=== PATIENT | female | born 1950 | race Caucasian/White ===

== ENCOUNTER 2019-10-03 00:11 | Day surgery (SDC) | payer MEDICARE, BC ==
[~2019-10-03 00:11] MED LIST: ASPI325EC; ASPI81EC; CHOL10002 PO; DIVA250EC PO; ELIQUIS5 MG PO; ENOX120I SC; FENOFIBRATE130 MG PO; LOSA25 PO; LOVENOX150 MG/1 M SC; METO25ER PO; Multiple Vitam1 EAC1; Neurontin 100100 MG PO; OLME20; ONDA4ODT MM; OXCA300; PRAV20 PO; PROM25 PO; TOLT4 PO; TUMS200 MG PO; VALS80
== END 2019-10-03 11:00 | disposition home or self-care (01) ==
LOC: ATC 00:11
DX: M54.16 Radiculopathy, lumbar region (principal); I69.351 Hemiplegia and hemiparesis following cerebral infarction affecting right dominant side; Z79.01 Long term (current) use of anticoagulants; Z79.899 Other long term (current) drug therapy; Z88.8 Allergy status to other drugs, medicaments and biological substances; Z87.891 Personal history of nicotine dependence
CPT/HCPCS: 96372; J1650

== ENCOUNTER 2019-10-04 00:21 | Day surgery (SDC) | payer MEDICARE, BC | END 2019-10-04 11:03 | disposition home or self-care (01) | LOC: ATC 00:21 | DX: M54.16 Radiculopathy, lumbar region (principal); I69.351 Hemiplegia and hemiparesis following cerebral infarction affecting right dominant side; I10 Essential (primary) hypertension; E78.5 Hyperlipidemia, unspecified; Z79.01 Long term (current) use of anticoagulants; Z79.899 Other long term (current) drug therapy; Z79.82 Long term (current) use of aspirin; Z88.8 Allergy status to other drugs, medicaments and biological substances; Z87.891 Personal history of nicotine dependence | CPT/HCPCS: 96372; J1650 ==

== ENCOUNTER 2019-10-06 10:48 | Day surgery (SDC) | payer MEDICARE, BC | END 2019-10-06 11:02 | disposition home or self-care (01) | LOC: ATC 10:48 | DX: M54.16 Radiculopathy, lumbar region (principal); I69.351 Hemiplegia and hemiparesis following cerebral infarction affecting right dominant side; I10 Essential (primary) hypertension; E78.5 Hyperlipidemia, unspecified; Z79.01 Long term (current) use of anticoagulants; Z79.82 Long term (current) use of aspirin; Z79.899 Other long term (current) drug therapy; Z88.8 Allergy status to other drugs, medicaments and biological substances; Z87.891 Personal history of nicotine dependence | CPT/HCPCS: 96372; J1650 ==

== ENCOUNTER 2019-10-07 00:51 | Day surgery (SDC) | payer MEDICARE, BC | END 2019-10-07 09:08 | disposition home or self-care (01) | LOC: ATC 00:51 | DX: M54.16 Radiculopathy, lumbar region (principal); I69.351 Hemiplegia and hemiparesis following cerebral infarction affecting right dominant side; I10 Essential (primary) hypertension; E78.5 Hyperlipidemia, unspecified; Z79.01 Long term (current) use of anticoagulants; Z79.82 Long term (current) use of aspirin; Z79.899 Other long term (current) drug therapy; Z88.8 Allergy status to other drugs, medicaments and biological substances; Z87.891 Personal history of nicotine dependence | CPT/HCPCS: 96372; J1650 ==

== ENCOUNTER → 2020-03-13 | Outpatient (CLI) | payer MEDICARE, BC ==
[2020-03-13 16:17] LABS: BASOPHILS ABSOLUTE AUTO 0.03 K/mm3 (0.00-0.23); BASOPHILS PERCENT AUTO 1 % (0-2); EOSINOPHILS ABSOLUTE AUTO 0.05 K/mm3 (0.00-0.68); EOSINOPHILS PERCENT AUTO 1 % (0-6); Hematocrit 41.3 % (33.0-51.0); Hemoglobin 13.8 g/dL (11.5-16.0); IMMATURE GRAN ABSOLUTE AUTO 0.01 K/mm3 (0.00-0.10); IMMATURE GRAN PERCENT AUTO 0 % (0-1); LYMPHOCYTES ABSOLUTE AUTO 1.36 K/mm3 (0.84-5.20); LYMPHOCYTES PERCENT AUTO 31 % (21-46); MONOCYTES ABSOLUTE AUTO 0.46 K/mm3 (0.16-1.47); MONOCYTES PERCENT AUTO 10 % (4-13); Mean Corpuscular HGB 32.7 pg (26.0-34.0); Mean Corpuscular HGB Conc 33.4 g/dL (31.5-36.5); Mean Corpuscular Volume 98 fL (80-100); Mean Platelet Volume 11.8 fL (9.1-12.4); NEUTROPHILS ABSOLUTE AUTO 2.53 K/mm3 (1.96-9.15); NEUTROPHILS PERCENT AUTO 57 % (41-73); Platelet Count 174 K/mm3 (150-400); RDW Coefficient Variation 11.9 % (11.7-14.2); RDW Standard Deviation 42.4 fL (35.1-46.3); Red Blood Cell Count 4.22 M/mm3 (3.80-5.20); White Blood Cell Count 4.44 K/mm3 (4.00-11.30)
[2020-03-13 16:57] LABS: Alanine Aminotransfer (ALT/SGP 23 U/L (12-78); Albumin, Blood 3.9 g/dL (3.4-5.0); Albumin/Globulin Ratio 1.1 (0.8-1.8); Alk Phos 47 U/L (50-136); Anion Gap 9 mmol/L (6-16); Aspartate Aminotrans (AST/SGOT 16 U/L (12-37); Bilirubin, Total 0.5 mg/dL (0.1-1.0); Blood Urea Nitrogen 14 mg/dL (8-24); Bun/Creatinine Ratio 13.9 (12.0-20.0); CHOL/HDL RATIO 3.2; CO2, Blood 25 mmol/L (21-32); Calcium, Blood 9.9 mg/dL (8.5-10.1); Chloride, Blood 100 mmol/L (98-108); Cholesterol 146 mg/dL (50-200); Creatinine, Blood 1.01 mg/dL (0.40-1.00); Globulin, Blood 3.5 g/dL (2.2-4.0); Glomerular Filtration Rate 58 (60-); Glucose, Blood 86 mg/dL (70-99); HDL Cholesterol 46 mg/dL (>39); LDL/HDL RATIO 1.3; Low Density Lipoprotein Chol 61 mg/dL (0-110); Potassium, Blood 4.2 mmol/L (3.5-5.5); Sodium, Blood 134 mmol/L (136-145); Total Protein, Blood 7.4 g/dL (6.4-8.2); Triglycerides 197 mg/dL (30-160); Valproic Acid 67.9 ug/mL (50.0-100.0); Very Low Density Lipoprot Chol 39 mg/dL (6-32)
== END | disposition home or self-care (01) ==
LOC: LAB 14:40 → LAB SHORT 14:40
PROVIDERS: Hospitalist
DX: E78.5 Hyperlipidemia, unspecified (principal); I10 Essential (primary) hypertension; G40.909 Epilepsy, unspecified, not intractable, without status epilepticus
CPT/HCPCS: 80053; 80061; 80164; 85025

== ENCOUNTER 2020-07-23 15:23 | Emergency (ER) | payer MEDICARE, BC ==
[~2020-07-23] VITALS: Ht 160 cm; Wt 90.7 kg
[2020-07-23] MEDS ORDERED: ELIQUIS5 MG PO (15:36)
[2020-07-23 19:43] LABS: Source, Urine Catheter
[2020-07-23 20:01] LABS: Bilirubin, Urine Neg (Neg); Blood, Urine Neg (Neg); Glucose Qualitative, Urine Neg (Neg); Ketones, Urine Neg (Neg); Leukocyte Esterase, Urine 1+ (Neg); Nitrite, Urine Neg (Neg); Protein, Urine Neg (Neg); Urobilinogen, Urine NORM (Normal)
[2020-07-23 20:36] LABS: Appearance, Urine Clear (Clear); Bacteria Not Seen /hpf; Color, Urine Yellow (P-Yellow); Red Blood Cells, Urine Not Seen /hpf (0-2); Squamous Epithelial Cells Rare /hpf (Few); White Blood Cells, Urine Rare /hpf (0-5)
== END 2020-07-23 23:23 | disposition short-term general hospital (02) ==
LOC: ER 15:23
PROVIDERS: Emergency Medicine
DX: M54.5 Low back pain (principal); R32 Unspecified urinary incontinence; R53.1 Weakness; G89.29 Other chronic pain; Z79.01 Long term (current) use of anticoagulants; Z79.899 Other long term (current) drug therapy
CPT/HCPCS: 51701; 72148; 73502; 81001; 96374; 96375; 96376; 99285-25; J2270; J2405

== ENCOUNTER → 2023-09-05 | Outpatient (CLI) | payer MEDICARE, BC | END | disposition home or self-care (01) | LOC: LAB SHORT 11:00 → LAB 11:00 | DX: R30.0 Dysuria (principal) | CPT/HCPCS: 87086 ==

== ENCOUNTER → 2023-10-05 | Outpatient (CLI) | payer MEDICARE, BC ==
[2023-10-05 14:11] LABS: Alanine Aminotransfer (ALT/SGP 14 U/L (12-78); Albumin, Blood 3.1 g/dL (3.4-5.0); Albumin/Globulin Ratio 0.8 (0.8-1.8); Alk Phos 45 U/L (50-136); Anion Gap 3 mmol/L (6-16); Aspartate Aminotrans (AST/SGOT 15 U/L (12-37); Bilirubin, Total 0.5 mg/dL (0.1-1.0); Blood Urea Nitrogen 20 mg/dL (8-24); Bun/Creatinine Ratio 17.4 (12.0-20.0); CHOL/HDL RATIO 2.9; CO2, Blood 28 mmol/L (21-32); Calcium, Blood 9.5 mg/dL (8.5-10.1); Chloride, Blood 109 mmol/L (98-108); Cholesterol 139 mg/dL (50-200); Creatinine, Blood 1.15 mg/dL (0.40-1.00); Dilantin (Phenytoin), Total 0.5 ug/mL (10.0-20.0); Globulin, Blood 3.9 g/dL (2.2-4.0); Glomerular Filtration Rate 51 (60-); Glucose, Blood 82 mg/dL (70-99); HDL Cholesterol 48 mg/dL (>39); LDL/HDL RATIO 1.2; Low Density Lipoprotein Chol 59 mg/dL (0-110); Potassium, Blood 4.1 mmol/L (3.5-5.5); Sodium, Blood 140 mmol/L (136-145); Triglycerides 160 mg/dL (30-160); Very Low Density Lipoprot Chol 32 mg/dL (6-32)
== END | disposition home or self-care (01) ==
LOC: LAB 08:50 → LAB SHORT 08:50
PROVIDERS: Hospitalist
DX: E78.5 Hyperlipidemia, unspecified (principal); I12.9 Hypertensive chronic kidney disease with stage 1 through stage 4 chronic kidney disease, or unspecified chronic kidney disease; N18.32 Chronic kidney disease, stage 3b; R56.9 Unspecified convulsions
CPT/HCPCS: 80053; 80061; 80185; 83970

== ENCOUNTER → 2025-01-17 | Outpatient (CLI) | payer OTHER | LOC: LAB 13:58 → LAB SHORT 13:58 | DX: I12.9 Hypertensive chronic kidney disease with stage 1 through stage 4 chronic kidney disease, or unspecified chronic kidney disease (principal); E78.5 Hyperlipidemia, unspecified ==

== ENCOUNTER 2025-03-31 12:16 | Inpatient (IN) | payer OTHER ==
[~2025-03-31] VITALS: Ht 160 cm; Wt 71.8 kg
[~2025-03-31 12:16] MED LIST changes: -LOSA25 PO; +LOSA50 PO
[2025-03-31] MEDS ORDERED: Lidocaine 4% 1 Patch TOP ONE (13:25)
[2025-03-31 15:35] LABS: BASOPHILS ABSOLUTE AUTO 0.03 K/mm3 (0.00-0.23); BASOPHILS PERCENT AUTO 1 % (0-2); EOSINOPHILS ABSOLUTE AUTO 0.03 K/mm3 (0.00-0.68); EOSINOPHILS PERCENT AUTO 1 % (0-6); Hematocrit 41.5 % (33.0-51.0); Hemoglobin 14.0 g/dL (11.5-16.0); IMMATURE GRAN ABSOLUTE AUTO 0.02 K/mm3 (0.00-0.10); IMMATURE GRAN PERCENT AUTO 0 % (0-1); LYMPHOCYTES ABSOLUTE AUTO 2.32 K/mm3 (0.84-5.20); LYMPHOCYTES PERCENT AUTO 40 % (21-46); MONOCYTES ABSOLUTE AUTO 0.44 K/mm3 (0.16-1.47); MONOCYTES PERCENT AUTO 8 % (4-13); Mean Corpuscular HGB Conc 33.7 g/dL (31.5-36.5); Mean Corpuscular Volume 101 fL (80-100); NEUTROPHILS ABSOLUTE AUTO 2.99 K/mm3 (1.96-9.15); NEUTROPHILS PERCENT AUTO 51 % (41-73); NRBC ABSOLUTE 0.00 K/mm3 (0.00-0.02); NRBC Auto 0.0 /100 WBC (0.0-0.2); Platelet Count 161 K/mm3 (150-400); RDW Coefficient Variation 13.7 % (11.7-14.2); RDW Standard Deviation 50.4 fL (35.1-46.3)
[2025-03-31 16:14] LABS: Anion Gap 7.0 mmol/L (3-11); Blood Urea Nitrogen 19.0 mg/dL (8-24); CO2, Blood 32.0 mmol/L (21-32); Calcium, Blood 12.6 mg/dL (8.5-10.1); Chloride, Blood 102.0 mmol/L (98-108); Creatinine, Blood 0.88 mg/dL (0.40-1.00); Glucose, Blood 83.0 mg/dL (70-99); Potassium, Blood 3.0 mmol/L (3.5-5.5); Sodium, Blood 138.0 mmol/L (136-145)
[2025-03-31] MEDS ORDERED: HYDROcodone 5-APAP 325 TAB PO PRN (16:20)
[2025-03-31] MEDS ORDERED: FentaNYL Citrate 50 MCG/ML 2 ML Injection IV PRN (16:20)
[2025-03-31] MEDS ORDERED: NS 1,000 ML IV SCH (16:25)
[2025-03-31 17:02] VITALS: BP 160/95
[2025-03-31 17:03] VITALS: BP 160/95
--- NOTE | 2025-03-31 17:21 | NUR ---
ARRIVAL PT ARRIVED TO UNIT FROM ER. TRANSFERED WITH SLIDE SHEET. CLEAN UNDERWEAR PLACED. NEW GOWN ON PATIENT. R ARM IN SLING, SWELLING TO R SHOULDER AND BRUISING AROUND COLLAR BONE. FINGERS WARM TO TOUCH AND PATIENT REPORTS FULL SENSATION. SPLINT TO R ANKLE, ABLE TO WIGGLE TOES, WARM TO TOUCH. CAP REFILL <3. REPORTS MINIMAL PAIN AT THIS TIME. OFFERED MEDICATIONS AND PATIENT DECLINED. C COLLAR ON TO NECK, SHE DISLIKES C COLLAR BUT IS KEEPING IN PLACE. NO SKIN BREAKDOWN NOTED, PLACED PILLOW UNDER R SIDE TO HELP OFFLOAD PRESSURE. PT HAS HX OF EXPRESSIVE APHASIA BUT APPEARS ABLE TO MAKE NEEDS KNOWN. SPOUSE AT BEDSIDE . CALL LIGHT PROVIDED.
[2025-03-31 17:43] LABS: Anti-Xa UFH, PHA Monitoring 0.79 IU/mL; Prothrombin Time Results 14.6 Sec (9.7-11.5)
[2025-03-31] MEDS ORDERED: Magnesium Sulf 2 GM/Water 50ML 50 ML IV STA (18:20)
[2025-03-31 19:31] VITALS: BP 143/80
[2025-03-31] MEDS ORDERED: Heparin Sodium,Porcine/0.5 NS 500 ML IV SCH (19:40)
[2025-04-01] VITALS (17 sets, daily range): BP systolic 122–183; BP diastolic 75–116
--- NOTE | 2025-04-01 01:28 | NUR ---
RN TO ROOM TO ROUND; PT ASLEEP WITH EQUAL AND UNLABORED BREATHING. C-COLLAR IN PLACE. CALL LIGHT WITHIN REACH.
--- NOTE | 2025-04-01 02:25 | NUR ---
RN TO ROOM TO ROUND; PT SLEEPING, EQUAL AND UNLABORED BREATHS. C-COLLAR IN PLACE. CALL LIGHT WITHIN REACH.
[2025-04-01 03:27] LABS: Hematocrit 35.8 % (33.0-51.0); Hemoglobin 12.4 g/dL (11.5-16.0); Platelet Count 144 K/mm3 (150-400)
[2025-04-01] MEDS ORDERED: Dose Adjust by Pharmacy XX STA ×2 (04:35→11:57)
--- NOTE | 2025-04-01 04:45 | NUR ---
0430 RN AND TECH TO ROOM TO REPOSITION PT; PT C/O PAIN AT C-COLLAR. SLING VELCRO IS UNDER COLLAR; REPOSITIONED COLLAR AND PT MEDICATED PER EMAR. PHARMACY CONTACTED RN WHILE IN THE ROOM AND PT HEPARIN DRIP TITRATED PER NEW ORDER.
--- NOTE | 2025-04-01 05:19 | NUR ---
SHIFT SUMMARY NO ACUTE CHANGES DURING NOC SHIFT. PT WITH EXPRESSIVE APHASIA BUT ABLE TO COMMUNICATE NEEDS WITH SOME PROMPTING. PT REPOSITIONED WITH PILLOWS THROUGHOUT SHIFT.
[2025-04-01 08:42] LABS: BASOPHILS ABSOLUTE AUTO 0.03 K/mm3 (0.00-0.23); BASOPHILS PERCENT AUTO 1 % (0-2); EOSINOPHILS ABSOLUTE AUTO 0.05 K/mm3 (0.00-0.68); EOSINOPHILS PERCENT AUTO 1 % (0-6); Hematocrit 34.7 % (33.0-51.0); Hemoglobin 12.3 g/dL (11.5-16.0); IMMATURE GRAN ABSOLUTE AUTO 0.01 K/mm3 (0.00-0.10); IMMATURE GRAN PERCENT AUTO 0 % (0-1); LYMPHOCYTES ABSOLUTE AUTO 2.37 K/mm3 (0.84-5.20); LYMPHOCYTES PERCENT AUTO 48 % (21-46); MONOCYTES ABSOLUTE AUTO 0.37 K/mm3 (0.16-1.47); MONOCYTES PERCENT AUTO 8 % (4-13); Mean Corpuscular HGB Conc 35.4 g/dL (31.5-36.5); Mean Corpuscular Volume 99 fL (80-100); NEUTROPHILS ABSOLUTE AUTO 2.12 K/mm3 (1.96-9.15); NEUTROPHILS PERCENT AUTO 43 % (41-73); NRBC ABSOLUTE 0.00 K/mm3 (0.00-0.02); NRBC Auto 0.0 /100 WBC (0.0-0.2); Platelet Count 159 K/mm3 (150-400); RDW Coefficient Variation 13.6 % (11.7-14.2); RDW Standard Deviation 49.0 fL (35.1-46.3)
[2025-04-01 08:50] LABS: Prothrombin Time Results 13.8 Sec (9.7-11.5)
[2025-04-01] MEDS ORDERED: Potassium Chloride 60 MEQ IV ONE (09:00)
[2025-04-01] MEDS ORDERED: Potassium Chl 20MEQ/Water100ML 100 ML IV SCH (09:05)
[2025-04-01 09:06] LABS: Alanine Aminotransfer (ALT/SGP 14.0 U/L (12-78); Albumin, Blood 2.2 g/dL (3.4-5.0); Albumin/Globulin Ratio 0.4 (0.8-1.8); Anion Gap 7.0 mmol/L (3-11); Aspartate Aminotrans (AST/SGOT 21.0 U/L (12-37); Bilirubin, Total 0.6 mg/dL (0.1-1.0); Blood Urea Nitrogen 16.0 mg/dL (8-24); CO2, Blood 32.0 mmol/L (21-32); Calcium, Blood 11.5 mg/dL (8.5-10.1); Chloride, Blood 102.0 mmol/L (98-108); Creatinine, Blood 0.78 mg/dL (0.40-1.00); Globulin, Blood 5.9 g/dL (2.2-4.0); Glucose, Blood 87.0 mg/dL (70-99); Magnesium, Blood 1.6 mg/dL (1.6-2.4); Potassium, Blood 2.6 mmol/L (3.5-5.5); Sodium, Blood 138.0 mmol/L (136-145); Total Protein, Blood 8.1 g/dL (6.4-8.2)
[2025-04-01] MEDS ORDERED: DIVALPROEX SOD500 M2 PO (10:06)
--- NOTE | 2025-04-01 12:20 | NUR ---
HEPARIN GTT TURNED OFF @[address] HALEY FOR ANTICIPATE SURGERY TODAY - PHARMACY NOTIFIED.
[2025-04-01] MEDS ORDERED: Bupivacaine 0.5% W/EPI 1:200000 SDV 30 ML Vial ONE (12:46)
[2025-04-01] MEDS ORDERED: Tranexamic Acid 100 ML IV SCH (13:08)
[2025-04-01] MEDS ORDERED: CeFAZolin Sodium 2,000 MG in NS 100 ML IV SCH (15:00)
--- NOTE | 2025-04-01 15:00 | NUR ---
"Spiritual Care Visit | Palliative Nurse Recemmendation Pt. is in bed and spouse is at bedside when I am welcomed into the room. This caddy packer had been briefed by the nurse that the Pt. would be having surgery this afternoon. At bedside a life review is facilitated. Pt. and spouse are both delightfully pleasant. Listen with empathy and a calming presence. Pt. displayed evidence of being aware and caomforted by the visit. Prayed for the pt. Pt. and spouse both verbalized gratitude for the spiritual care visit. Will remain available to the Pt. and spouse."
--- NOTE | 2025-04-01 16:24 | NUR ---
PT WITH AUTO FLEET MANAGER'S OUT OF ROOM @6469.
--- NOTE | 2025-04-01 16:26 | NUR ---
PT HAS TWO 20G IVS L ARM THAT SHOW NO SIGN OF INFILTRATION.
--- NOTE | 2025-04-01 16:34 | NUR ---
SUMMARY ASSUMED CARE OF PT @0700. AXO4 WITH BASELINE POST CVA CHANGES. R ARM IN SLING. R ANKLE IN SPLINT. STARTED SHIFT IN REGUALR C COLLAR, FITTED WITH NEW SOFTER C COLLAR BY [employer] STAFF MEMBER. PT NPO SINCE THIS AM AWAITING SURGICAL CONSULT. FAMILY IN ROOM. POTASSIUM HAVING TO BE REPLACED IV DUE TO BE ING NPO FOR MAJORITY OF SHIFT DUE TO K 2.6 - RECEIVED 60MEQ TOTAL IV KCL - AWAITING REDRAW RESULTS. PT HAD CT CHEST/ABD TO ASCERTAIN POSSIBLE CANCER SOURCES - FAMILY AWARE OF OSTEOLYTIC LESIONS VIA HOSPITALIST TEAM - STATE UNDERSTANDING OF PROGNOSIS - CARE MANAGEMENT / PALLIATIVE CARE RN'S IN AND OUT OF ROOM THIS SHIFT. PT ON TELE - SR BBB. VSS. PW IN PLACE - 24HR URINE STARTED - WILL CONTINUE DURING SURGERY. HEP GTT ON AT BEGINNING OF SHIFT - TURNED OFF VIA DR HALEY VERBAL ORDER. SEE TIME OF DEPARTURE TO SURGERY. NOW AWAITING PT'S RETURN TO UNIT POSTOP.
[2025-04-01] MEDS ORDERED: Midazolam HCl 1MG / ML 2ML Vial ONE (17:14)
[2025-04-01] MEDS ORDERED: FentaNYL Citrate 50 MCG/ML 2 ML Injection IV PRN ×2 (17:45→17:50)
[2025-04-01] MEDS ORDERED: HYDROmorphone HCl/Pf 1MG SYR IV PRN ×2 (17:50)
[2025-04-01] MEDS ORDERED: Dexamethasone Sodium Phosphate 4 MG/ML 5ML VIAL IV PRN (17:50)
[2025-04-01] MEDS ORDERED: Albuterol 2.5 MG/3 ML VIAL INH PRN (17:50)
[2025-04-01] MEDS ORDERED: Ondansetron HCl 2 MG / ML 2ML Vial IV PRN (17:50)
--- NOTE | 2025-04-01 17:51 | NUR ---
PALLIATIVE CARE VISIT: 1200 MET WITH PT IN HER ROOM. PT APPEARS TO BE SLEEPY. SPOUSE AND SON PRESENT. EDUCATED ON PALLIATIVE CARE SERVICES. PT AGREEABLE TO VISIT. DISCUSSED GOALS OF CARE AND CODE STATUS. PT WANTS SURGERY TO ANKLE. SHE WILL SEEK TREATMENT FOR MALIGNANCY WITH THE CAN[facility]ER CENTER. PT FAMILY REPORT THEY WILL ASSIST HER TO TREATMENT. THEY WILL NEED A WHEELCHAIR FOR TRANSPORTATION PURPOSES. EDUCATED ON CODE STATUS, RISKS VS BENEFITS OF CHEST COMPRESSIONS AND POTENTIAL FOR RIB FRACTURES DUE TO LESIONS OF THE BONES. PT ADAMENT SHE WANTS TO BE A FULL CODE AND STATED ER DOCTOR HAD ALREADY DISCUSSED THIS WITH THEM. SYMPTOM MANAGEMENT. PT STATES HER PAIN IS MANAGED WITH CURRENT PAIN MEDICATIONS. DENIES SOB, NAUSEA, CONSTIPATION, DIFFICULTY SLEEPING. PT CURRENTLY NPO AWAITING SURGERY. C/O DRY MOUTH AND LIPS. PROVIDED MOUTH MOISTURIZER AND CHAP STICK. EDUCATED FAMILY ON HOW TO APPLY. UPDATED PRIMARY RN AND NOTIFIED FINANCE ATTORNEY PT WOULD APPRECIATE A VISIT.
[2025-04-01] MEDS ORDERED: Phenylephrine HCl 100 MCG/ML-NS 10MLSYR (1MG/10ML) ONE (18:21)
--- NOTE | 2025-04-01 19:24 | NUR ---
REPORT FROM NEEDLE PUNCH MACHINE OPERATOR HELPER REGARDING OR CASE; AWAITING PT RETURN TO FLOOR.
--- NOTE | 2025-04-01 20:21 | NUR ---
1954 PT TO ROOM FROM PACU ON BED WITH STAFF; RIGHT ANKLE DRESSING CDI, CAP REFILL WNL. PT UNABLE TO WIGGLE TOES UPON ARRIVAL. PER REPORT FROM PACU, PT IS NOT TO HAVE ANY ANTICOAGULATION UNTIL SPINAL IS WORN OFF AND PT CAN MOVE RIGHT TOES/MINIMUM OF 6 HOURS FROM ARRIVAL.
[2025-04-01 22:00] LABS: Anion Gap 6.0 mmol/L (3-11); Blood Urea Nitrogen 14.0 mg/dL (8-24); CO2, Blood 29.0 mmol/L (21-32); Calcium, Blood 11.6 mg/dL (8.5-10.1); Chloride, Blood 103.0 mmol/L (98-108); Creatinine, Blood 0.77 mg/dL (0.40-1.00); Glucose, Blood 95.0 mg/dL (70-99); Potassium, Blood 3.0 mmol/L (3.5-5.5); Sodium, Blood 135.0 mmol/L (136-145)
--- NOTE | 2025-04-01 22:02 | NUR ---
CALL TO HOSPITALIST REGARDING HEPARIN DRIP AND ORDERS FOR ANTICOAGULATION. PER KIRIT, DO NOT RESTART HEPARIN DRIP AND PT TO BE STARTED ON HOME DOSE OF ELIQUIS TOMORROW. PHARMACY NOTIFIED.
[2025-04-02] VITALS (7 sets, daily range): BP systolic 103–177; BP diastolic 82–105
--- NOTE | 2025-04-02 01:08 | NUR ---
35004/01/25 RN DISCUSSED WITH CHARGE NURSE PT ELEVATED BP AND INCONTINENT EPISODE DUE TO PUREWICK BEING DISLODGED. URINE ON PT FRESH POST OP DRESSING. JANET WRAP WAS CHANGED, HOWEVER THE SPLINT IS ALSO WET. SPRING CLIPPER PLACED CALL TO HOSPITALIST FOR BP MED ORDERS AND PROVIDER AWARE OF URINE ON DRESSING BUT DOES DEFER TO PODIATRY PROVIDER. HOSPITALIST DID GIVE ORDERS FOR PT TO RESTART HOME BP MEDS. 429 SPRING CLIPPER ATTEMTPED TO CONTACT PROVIDER X2. AWAITING CALL BACK FOR DIRECTION ON HOW TO MANAGE SPLINT.
--- NOTE | 2025-04-02 01:14 | NUR ---
04/01/25 2300 RN TO ROOM TO MEDICATE PT; PT PUREWICK HAD BECOME DISLODGED AND PT WAS INCONTINENT OF URINE. COMPLETE LINEN CHANGE WAS COMPLETED.
--- NOTE | 2025-04-02 02:27 | NUR ---
CALL BACK FROM PODIATRY PROVIDER; RN TO ROOM TO REMOVE URINE CONTAMINATED DRESSING FROM RLE. PROVIDER REQUESTED SUPPLIED TO BE LEFT AT BEDSIDE FOR REPLACEMENT IN THE MORNING. ABD AND KERLEX APPLIED TO RLE TO PREVENT DRAINAGE FROM SITE OR CONTAMINATION. RLE ELEVATED. PT TOLERATED PROCEDURE WITH NO COMPLAINTS. CALL LIGHT WITHIN REACH.
--- NOTE | 2025-04-02 02:31 | NUR ---
CALL TO LAB; DUE TO INCONTINENT VOID, 24 HOUR URINE SAMPLE IS NO LONGER VALID.
[2025-04-02 06:02] LABS: BASOPHILS ABSOLUTE AUTO 0.03 K/mm3 (0.00-0.23); BASOPHILS PERCENT AUTO 1 % (0-2); EOSINOPHILS ABSOLUTE AUTO 0.05 K/mm3 (0.00-0.68); EOSINOPHILS PERCENT AUTO 1 % (0-6); Hematocrit 34.1 % (33.0-51.0); Hemoglobin 11.9 g/dL (11.5-16.0); IMMATURE GRAN ABSOLUTE AUTO 0.00 K/mm3 (0.00-0.10); IMMATURE GRAN PERCENT AUTO 0 % (0-1); LYMPHOCYTES ABSOLUTE AUTO 1.74 K/mm3 (0.84-5.20); LYMPHOCYTES PERCENT AUTO 36 % (21-46); MONOCYTES ABSOLUTE AUTO 0.40 K/mm3 (0.16-1.47); MONOCYTES PERCENT AUTO 8 % (4-13); Mean Corpuscular HGB Conc 34.9 g/dL (31.5-36.5); Mean Corpuscular Volume 99 fL (80-100); NEUTROPHILS ABSOLUTE AUTO 2.56 K/mm3 (1.96-9.15); NEUTROPHILS PERCENT AUTO 54 % (41-73); NRBC ABSOLUTE 0.00 K/mm3 (0.00-0.02); NRBC Auto 0.0 /100 WBC (0.0-0.2); Platelet Count 133 K/mm3 (150-400); RDW Coefficient Variation 13.2 % (11.7-14.2); RDW Standard Deviation 48.5 fL (35.1-46.3)
--- NOTE | 2025-04-02 06:38 | NUR ---
SHIFT SUMMARY PT POD #1 FROM ORIF RIGHT ANKLE. PT C-COLLAR AND RIGHT ARM SLING IN PLACE. PT AWAITING PROVIDER VISIT TO REWRAP ANKLE DUE TO DRESSING CONTAMINATION DURING NOC SHIFT. PT FAMILY AT BEDSIDE THIS MORNING AND UPDATED ON VILLALTA CATHETER AND NEW 24 HOUR URINE COLLECTION.
[2025-04-02 06:52] LABS: Alanine Aminotransfer (ALT/SGP 12.0 U/L (12-78); Albumin, Blood 2.0 g/dL (3.4-5.0); Albumin/Globulin Ratio 0.4 (0.8-1.8); Anion Gap 8.0 mmol/L (3-11); Aspartate Aminotrans (AST/SGOT 19.0 U/L (12-37); Bilirubin, Total 0.7 mg/dL (0.1-1.0); Blood Urea Nitrogen 12.0 mg/dL (8-24); CO2, Blood 29.0 mmol/L (21-32); Calcium, Blood 11.7 mg/dL (8.5-10.1); Chloride, Blood 102.0 mmol/L (98-108); Creatinine, Blood 0.75 mg/dL (0.40-1.00); Globulin, Blood 5.6 g/dL (2.2-4.0); Glucose, Blood 80.0 mg/dL (70-99); Potassium, Blood 2.8 mmol/L (3.5-5.5); Sodium, Blood 136.0 mmol/L (136-145); Total Protein, Blood 7.6 g/dL (6.4-8.2)
--- NOTE | 2025-04-02 07:26 | NUR ---
DR HALEY TO ROOM AND ORTHO GLASS SPLINT REPLACED. REPORT GIVEN TO STONE KIRK.
[2025-04-02] MEDS ORDERED: Mag Sulfate 1 GM/D5% 100ML 100 ML IV STA (08:14)
[2025-04-02 12:43] LABS: Anion Gap 3.0 mmol/L (3-11); Blood Urea Nitrogen 11.0 mg/dL (8-24); CO2, Blood 33.0 mmol/L (21-32); Calcium, Blood 11.8 mg/dL (8.5-10.1); Chloride, Blood 104.0 mmol/L (98-108); Creatinine, Blood 0.7 mg/dL (0.40-1.00); Glucose, Blood 89.0 mg/dL (70-99); Potassium, Blood 4.1 mmol/L (3.5-5.5); Sodium, Blood 136.0 mmol/L (136-145)
[2025-04-02] MEDS ORDERED: Docusate Sodium/Senna 1 Tab PO PRN (14:00)
--- NOTE | 2025-04-02 14:07 | NUR ---
PALLIATIVE CARE VISIT: SUPPORTIVE VISIT MADE POST SURGICAL ORIF. PT IN RO0M WITH DAUGHTER AND SPOUSE. PT IS AWAKE AND ALERT. FAMILY REPORT PT TOOK 3 HOUR NAP. PAINAD IS 0/10. PT DENIES PAIN. PT DOES APPEAR MORE CONFUSED/FORGETFUL THAN YESTERDAY. SHE DOES NOT RECALL WHERE SHE IS AT. SHE SAYS NO WHEN ASKED IF SHE REMEMBERS BREAKING HER ANKLE. FAMILY RE-ORIENTED PT TO SITUATION. DISCUSSED CONCERNS ABOUT CARE NEEDS POST DISCHARGE. FAMILY HAVE QUESTIONS ABOUT HOW LONG SHE HAS TO WEAR THE NECK BRACE AND IF IT CAN BE REMOVED FOR ANY REASON. THEY WILL ALSO NEED EQUIPMENT SUCH A JUANY AND HOSPITAL BED DUE TO REDUCED MOBILITY/PAIN. ALSO DISCUSSED CHANGING DIET TEXTURE TO ACCOMODATE EASIER CHEWING FOR COMFORT DUE TO PT HAVING DIFFICULTY CHEWING WITH NECK BRACE ON. PT IS AGREEABLE TO TRYING A CHOPPED TEXTURE. FAMILY ARE AWAITING ONCOLOGY CONSULT TO MAKE FURTHER DECISIONS ABOUT GOC. SPOKE TO MD ABOUT CONCERNS/RECOMMENDATIONS. AGREEABLE TO DIET TEXTURE CHANGE. ALSO RECOMMENDED BOWEL REGIMEN. MD TO ORDER. THEY WILL ADDRESS ABOVE CONCERNS WITH NECK BRACE/EQUIPMENT NEEDS. DISCUSSED WITH DIETITIAN RECOMMENDED TEXTURE AND HE RECOMMENDED LEVEL 6. ORDER PLACED.
--- NOTE | 2025-04-02 18:22 | NUR ---
SUMMARY NO ACUTE CHANGES THIS SHUFT. VSS. CCOLLAR REMAINS IN PLACE. R ARM REMAINS IN SLING. POST HALEY CHANGING SPLINT, REMAINS CDI. REMAINS SR BBB. R SIDED DEFICITS REMAIN. PAIN CONTROLLED WITH PO MEDS BUT IT IS DIFFICULT TO GET PT TO ADMIT TO PAIN, REQUIRESD PROMPTING AT TIMES TO ASCERTAIN ACTUAL PAIN LEVEL - EDUCATION ABOUT PAIN MANAGENT REINFORCED. FAMILY IN ROOM T/O SHIFT, QUESTIONS ANSWERED TO BEST OF ABILITY BETWEEN LYNN RN, CARE MANAGEMENT, HOSPITALIST, RESIDENTS, , AND DR BROWN. DR BROWN CONSULTED, EDUCATED FAMILY ON CANCER PLAN - PT/FAMILY IN AGREEMENT. POTASSIUM AND MAGNESIUM REPLACED T/O SHIFT, REDRAWS SHOW WNL NOW. PT BEING REPOSITIONED THIS SHUIFT. 24HR URINE REMAINS - VIA VILLALTA CATHETER ON ICE. NO BM THIS SHUIFT, ENCOURAGING BOWEL CARE. OTHERWISE, PT RESTING OFF AND ON TODAY. CALL LIGHT WITHIN REACH.
[2025-04-03 00:13] VITALS: BP 136/72
[2025-04-03 03:53] VITALS: BP 149/86
[2025-04-03 05:14] LABS: BASOPHILS ABSOLUTE AUTO 0.02 K/mm3 (0.00-0.23); BASOPHILS PERCENT AUTO 1 % (0-2); EOSINOPHILS ABSOLUTE AUTO 0.05 K/mm3 (0.00-0.68); EOSINOPHILS PERCENT AUTO 1 % (0-6); Hematocrit 34.7 % (33.0-51.0); Hemoglobin 11.9 g/dL (11.5-16.0); IMMATURE GRAN ABSOLUTE AUTO 0.01 K/mm3 (0.00-0.10); IMMATURE GRAN PERCENT AUTO 0 % (0-1); LYMPHOCYTES ABSOLUTE AUTO 0.85 K/mm3 (0.84-5.20); LYMPHOCYTES PERCENT AUTO 20 % (21-46); MONOCYTES ABSOLUTE AUTO 0.18 K/mm3 (0.16-1.47); MONOCYTES PERCENT AUTO 4 % (4-13); Mean Corpuscular HGB Conc 34.3 g/dL (31.5-36.5); Mean Corpuscular Volume 101 fL (80-100); NEUTROPHILS ABSOLUTE AUTO 3.21 K/mm3 (1.96-9.15); NEUTROPHILS PERCENT AUTO 74 % (41-73); NRBC ABSOLUTE 0.00 K/mm3 (0.00-0.02); NRBC Auto 0.0 /100 WBC (0.0-0.2); Platelet Count 132 K/mm3 (150-400); RDW Coefficient Variation 13.6 % (11.7-14.2); RDW Standard Deviation 50.8 fL (35.1-46.3)
[2025-04-03 05:34] LABS: Alanine Aminotransfer (ALT/SGP 11.0 U/L (12-78); Albumin, Blood 2.1 g/dL (3.4-5.0); Albumin/Globulin Ratio 0.4 (0.8-1.8); Anion Gap 5.0 mmol/L (3-11); Aspartate Aminotrans (AST/SGOT 20.0 U/L (12-37); Bilirubin, Total 0.8 mg/dL (0.1-1.0); Blood Urea Nitrogen 11.0 mg/dL (8-24); CO2, Blood 31.0 mmol/L (21-32); Calcium, Blood 12.2 mg/dL (8.5-10.1); Chloride, Blood 105.0 mmol/L (98-108); Creatinine, Blood 0.86 mg/dL (0.40-1.00); Globulin, Blood 6.0 g/dL (2.2-4.0); Glucose, Blood 86.0 mg/dL (70-99); Potassium, Blood 3.4 mmol/L (3.5-5.5); Sodium, Blood 138.0 mmol/L (136-145); Total Protein, Blood 8.1 g/dL (6.4-8.2)
--- NOTE | 2025-04-03 05:51 | NUR ---
0525- LAST OF URINE FROM VILLALTA CATH BAG THAT WAS ON ICE PLACED IN 24 HOUR URINE CONTAINER. TRAY CHECKER PRINTED STICKERS FOR CONTAINER AND TO HAND TO INDUSTRIAL GAS SERVICER HELPER. EMPTIED ICE /WATER FROM BASIN AND PLACED 2 BAGS FULL OF ICE AROUND CONTAINER TO CARRY TO LAB. WALKED IT TO LAB FOR 24 HOUR URINE LAB TEST.
[2025-04-03 07:19] VITALS: BP 125/87
[2025-04-03 12:43] LABS: Anion Gap 4.0 mmol/L (3-11); Blood Urea Nitrogen 14.0 mg/dL (8-24); CO2, Blood 32.0 mmol/L (21-32); Calcium, Blood 12.5 mg/dL (8.5-10.1); Chloride, Blood 104.0 mmol/L (98-108); Creatinine, Blood 0.94 mg/dL (0.40-1.00); Glucose, Blood 100.0 mg/dL (70-99); Potassium, Blood 3.9 mmol/L (3.5-5.5); Sodium, Blood 136.0 mmol/L (136-145)
[2025-04-03 15:23] VITALS: BP 94/67; BP 97/70
--- NOTE | 2025-04-03 16:23 | NUR ---
PT UNAVALIABLE DURING MY ROUNDS. DISCUSSED CASE [facility] SLAGGER.
--- NOTE | 2025-04-03 16:59 | NUR ---
SUMMARY NO ACUTE CHANGES THIS SHIFT. VSS. BONE BIOPSY DELAYED DUE TO NEEDING OUTPATIENT PET SCAN, THEN BIOPSY WILL BE COMPLETED PER RADIOLOGY TEAM. FAMILY UPDATED. KCL READMINISTERED, AWAITING BLOOD REDRAW. REMAINS SR BBB. CATHETER REMAINS, PATENT. C COLLAR READJUSTED BY [employer] NUTRITION TERRITORY MANAGER TODAY PER FAMILY REQUEST, PT STATES COLLAR IS MORE COMFORTABLE AND DOESNT ALLOW VIKA SLIP. PT FOUND TO HAVE POCKETED A PILL FROM PREVIOUS SHIFT, AGGRESSIVE ORAL CARE COMPLETED, EDUCATION COMPLETED. R ANKLE SPLINT REMAINS IN PLACE. R ARM SLING IN PLACE, LOOSENED THIS SHIFT TO ALLOW BREAK. PAIN WELL CONTROLLED. PT UNABLE TO FULLY WORK WITH PT TODAY DUE TO SOMNOLENCE, PLAN TO TRY AGAIN TOMORROW BEFORE LUNCH. PLAN FOR SNF DC TOMORROW. FAMILY IN FULL SUPPORT OF THIS.
[2025-04-03 20:16] VITALS: BP 110/75
[2025-04-03 20:56] LABS: ALPHA 1 GLOBULIN 0.29 g/dL (0.19-0.46); ALPHA 2 GLOBULIN 0.57 g/dL (0.48-1.05); BETA GLOBULIN 3.53 g/dL (0.48-1.10); GAMMA 0.54 g/dL (0.62-1.51); IMMUNOFIXATION IFE Done; KAPPA QNT FREE LIGHT CHAINS 11.53 mg/L (3.30-19.40); KAPPA/LAMBDA FLC RATIO 0.53 (0.26-1.65); LAMBDA QNT FREE LIGHT CHAINS 21.61 mg/L (5.71-26.30); MONOCLONAL PROTEIN 3.47 g/dL (<=0.00); TOTAL PROTEIN, SERUM 8.2 g/dL (6.3-8.2)
--- NOTE | 2025-04-03 21:00 | NUR ---
ASSUMPTION OF PRIMARY NURSING CARE AT APPROX 2030. BEDSIDE REPORT RECEIVED FROM NAYANA PAVON RN. FAMILY AT BEDSIDE, PT RESTING WITH EYES CLOSED AND CALL LIGHT IN REACH.
[2025-04-03] MEDS ORDERED: CefTRIAXone Sodium 1,000 MG in NS 100 ML IV ONE (22:50)
[2025-04-03] MEDS ORDERED: NS 1,000 ML IV ONE (22:50)
--- NOTE | 2025-04-03 22:50 | NUR ---
CALL TO HOSPITALIST. CALL PLACED REGARDING PT BEING FEBRILE, TACHYCARDIC, INCREASED LETHARGY/SOMNOLENCE, AND DARK URINE IN VILLALTA CATHETER. NEW ORDERS RECEIVED: CHEST XRAY, LACTIC ACID, BLOOD CULTURES X2, ROCEPHIN 1 GRAM X1 NOW, NS 1L BOLUS X1, NS 125ML/HR MAINTANCE FLUIDS AFTER BOLUS, AND URINALYSIS FROM CLAMPED VILLALTA.
[2025-04-03] MEDS ORDERED: NS 1,000 ML IV SCH (22:55)
[2025-04-03 23:51] VITALS: BP 113/69
[2025-04-04] VITALS (7 sets, daily range): BP systolic 99–157; BP diastolic 68–79
--- NOTE | 2025-04-04 01:01 | NUR ---
DR. BLANCHARD TO PT'S BEDSIDE.
[2025-04-04 03:15] LABS: BETA-2-MICROGLOBULIN,SER/PLAS 12.1 mg/L (<=3.0)
--- NOTE | 2025-04-04 05:43 | NUR ---
SHIFT SUMMARY NOC. PT S/P ORIF OF RIGHT ANKLE, FX OF R CLAVICLE, AND CERVICAL FX. PT DROWSY AND SOMNOLENT THIS SHIFT, NO FACIAL GRIMACING OR RESTLESSNESS NOTED. PT MEDICATED FOR FEVER THIS SHIFT WITH TYLENOL, WHICH WAS EFFECTIVE. REPOSITIONED EVERY 2 HOURS. HEART RATE STILL LOW 100S, OTHER VSS. INITIATED NEW ORDERS, PLEASE SEE PREVIOUS NOTE. UA SAMPLE FROM PROXIMAL PORT OF CATH SENT TO LAB. VILLALTA PATENT AND DRAINING DARK MARTHA COLORED URINE. PT HAD A DESAT EVENT TO 87%, PT PLACED ON N/C WITH NO IMPROVEMENT, SWITCHED TO FACE MASK D/T MOUTH BREATHING, PT SATS UP TO 97% ON 2L. TELEMETRY INTACT WITH NO REPORTED EVENTS. BED ALARM SET FOR SAFETY. FAMILY MEMBERS AT BEDSIDE ON/OFF T/O THE NIGHT.
[2025-04-04 05:44] LABS: Source, Urine Foley catheter
[2025-04-04 05:49] LABS: Bilirubin, Urine Neg (Neg); Color, Urine Yellow (P-Yellow); Glucose Qualitative, Urine Neg (Neg); Ketones, Urine Neg (Neg); Leukocyte Esterase, Urine Neg (Neg); Protein, Urine 1+ (Neg); Specific Gravity, Urine 1.015 (1.003-1.022); Urobilinogen, Urine 1+ (Normal)
[2025-04-04 06:00] LABS: BASOPHILS ABSOLUTE AUTO 0.02 K/mm3 (0.00-0.23); BASOPHILS PERCENT AUTO 1 % (0-2); EOSINOPHILS ABSOLUTE AUTO 0.03 K/mm3 (0.00-0.68); EOSINOPHILS PERCENT AUTO 1 % (0-6); Hematocrit 35.2 % (33.0-51.0); Hemoglobin 11.8 g/dL (11.5-16.0); IMMATURE GRAN ABSOLUTE AUTO 0.03 K/mm3 (0.00-0.10); IMMATURE GRAN PERCENT AUTO 1 % (0-1); LYMPHOCYTES ABSOLUTE AUTO 0.51 K/mm3 (0.84-5.20); LYMPHOCYTES PERCENT AUTO 14 % (21-46); MONOCYTES ABSOLUTE AUTO 0.11 K/mm3 (0.16-1.47); MONOCYTES PERCENT AUTO 3 % (4-13); Mean Corpuscular HGB Conc 33.5 g/dL (31.5-36.5); Mean Corpuscular Volume 105 fL (80-100); NEUTROPHILS ABSOLUTE AUTO 2.93 K/mm3 (1.96-9.15); NEUTROPHILS PERCENT AUTO 81 % (41-73); NRBC ABSOLUTE 0.00 K/mm3 (0.00-0.02); NRBC Auto 0.0 /100 WBC (0.0-0.2); Platelet Count 111 K/mm3 (150-400); RDW Coefficient Variation 13.9 % (11.7-14.2); RDW Standard Deviation 53.6 fL (35.1-46.3)
[2025-04-04 06:19] LABS: Alanine Aminotransfer (ALT/SGP 14.0 U/L (12-78); Albumin, Blood 1.8 g/dL (3.4-5.0); Albumin/Globulin Ratio 0.3 (0.8-1.8); Anion Gap 6.0 mmol/L (3-11); Aspartate Aminotrans (AST/SGOT 31.0 U/L (12-37); Bilirubin, Total 0.5 mg/dL (0.1-1.0); Blood Urea Nitrogen 17.0 mg/dL (8-24); CO2, Blood 27.0 mmol/L (21-32); Calcium, Blood 10.9 mg/dL (8.5-10.1); Chloride, Blood 108.0 mmol/L (98-108); Creatinine, Blood 1.15 mg/dL (0.40-1.00); Globulin, Blood 6.0 g/dL (2.2-4.0); Glucose, Blood 85.0 mg/dL (70-99); Potassium, Blood 3.9 mmol/L (3.5-5.5); Sodium, Blood 137.0 mmol/L (136-145); Total Protein, Blood 7.8 g/dL (6.4-8.2)
--- NOTE | 2025-04-04 09:29 | NUR ---
PROVIDERS RESIDENT TYRONE CALLED AND UPDATED REGARDING PT'S CURRENT MENTATION AND PRESENTATION. DISCUSSED DEDSATURATION LAST NIGHT, FEBRILE EPISODE, DECREASED MENTATION/INTERACTIVENESS, CONTINUED LETHARGIC STATE (WITH SOME IMPROVEMENT THIS AM) EVEN AFTER HOLDING NARCOTICS, UA RESULTS, CXR, AND PENDING LABS. PHYSICIANS ASSESSED PT. ORDERS FOR FLUTTER THERAPY, ST EVAL (CONCERNS FOR ASPIRATION YESTERDAY), AND OTHER ORDERS WILL BE PLACED NEEDED.
--- NOTE | 2025-04-04 12:29 | NUR ---
CARE FULL BED BATH COMPLETED. AGGRESSIVE ORAL CARE COMPLETED BEFORE PILLS ADMINISTERED. PT NOTED TO BE FAIRLY INTERACTIVE DURING THIS. PT ROLLED COMPLETELY ON BOTH SIDES MULTIPLE TIMES DURING LINEN CHANGE/BED BATH, SKIN ASSESMENT WNL, THOUGH, PRESSURE REDISTRIBUTING MATTRESS PLACED UNDERNEATH PT DUE TO IMMOBILITY. AWAITING SPEECH EVAL STILL. ASKED TO DO IT LATER PT WAS "WORN OUT" AFTER THE LOG CLEANING/ADL/ROM SESSION. PT CURRENTLY SLEEPING WITH FAMILY IN ROOM.
[2025-04-04] MEDS ORDERED: Dexamethasone Sod Phos 10 MG/ML 1ML VIAL IV ONE (14:20)
--- NOTE | 2025-04-04 17:37 | NUR ---
SUMMARY SEE PREVIOUS NOTES. FAMILY PRESENT AT BEDSIDE T/O SHIFT. MENTATION HAS IMPROVED FROM BEGINNING OF SHIFT BUT STILL REMAINS DIFFICULT TO GET PT TO PARTICIPATE IN CARE. ORAL CARE IN PLACE. SPEECH THERAPY CONSULT IN PLACE, RECOMMENDATIONS IN CHART. CXR SHOWS POSSIBLE ASP PNA - INTERVENTIONS IN PLACE FOR THIS. ABX INITIATED. FLUIDS INITIATED. BED BATH COMPLETED. PRESSURE INJURY MATTRESS PLACED. C COLLAR REMAINS. SLING REMAISN. SPLINT REMAINS. KEVIN INITIATED DECADRON DOSING FOR MULTIPLE MYELOMA - FAMILY HOPEFUL PT CAN STAY OVER WEEKEND TO CONTINUE THIS BEFROE GOING TO REHAB. OTHERWISE, PT BEING REPOSITIONED OFTEN. CALL LIGHT WITHIN REAACH. AFEBRILE TODAY. VSS.
[2025-04-04 20:44] LABS: ALBUMIN %,URINE 47.2 %; ALPHA-1 %,URINE 0.5 %; ALPHA-2 %,URINE 0.0 %; BETA GLOBULIN %,URINE 0.0 %; GAMMA GLOBULIN %,URINE 52.3 %; HOURS COLLECTED Random hr; PARAPROTEIN %,URINE 52.3 %
[2025-04-04] MEDS ORDERED: CefTRIAXone Sodium 1,000 MG in NS 100 ML IV SCH (21:00)
[2025-04-05 03:10] VITALS: BP 165/92
--- NOTE | 2025-04-05 05:09 | NUR ---
SHIFT SUMMARY NOC. PT S/P ORIF OF RIGHT ANKLE, FX OF R CLAVICLE, AND CERVICAL FX. PT MORE ALERT THIS SHIFT AND INTERACTIVE. PT MEDICATED FOR PAIN X1 WITH IMPROVEMENT NOTED BASED ON FLACC. PT REPOSITIONED EVERY 2 HOURS. VILLALTA IS PATENT AND DRAINING DARK YELLOW/MARTHA URINE. PT ON 2L N/C WHILE SLEEPING, SATS ABOVE 92%, NO MOUTH BREATHING OR DESATS THIS SHIFT. NO ACUTE EVENTS FROM TELEMETRY REPORTED. PT AFEBRILE THIS SHIFT, BED ALARM SET FOR SAFETY. CALL LIGHT IN REACH.
[2025-04-05 05:29] LABS: BASOPHILS ABSOLUTE AUTO 0.00 K/mm3 (0.00-0.23); BASOPHILS PERCENT AUTO 0 % (0-2); EOSINOPHILS ABSOLUTE AUTO 0.00 K/mm3 (0.00-0.68); EOSINOPHILS PERCENT AUTO 0 % (0-6); Hematocrit 30.7 % (33.0-51.0); Hemoglobin 10.4 g/dL (11.5-16.0); IMMATURE GRAN ABSOLUTE AUTO 0.02 K/mm3 (0.00-0.10); IMMATURE GRAN PERCENT AUTO 1 % (0-1); LYMPHOCYTES ABSOLUTE AUTO 0.42 K/mm3 (0.84-5.20); LYMPHOCYTES PERCENT AUTO 18 % (21-46); MONOCYTES ABSOLUTE AUTO 0.09 K/mm3 (0.16-1.47); MONOCYTES PERCENT AUTO 4 % (4-13); Mean Corpuscular HGB Conc 33.9 g/dL (31.5-36.5); Mean Corpuscular Volume 102 fL (80-100); NEUTROPHILS ABSOLUTE AUTO 1.84 K/mm3 (1.96-9.15); NEUTROPHILS PERCENT AUTO 78 % (41-73); NRBC ABSOLUTE 0.00 K/mm3 (0.00-0.02); NRBC Auto 0.0 /100 WBC (0.0-0.2); Platelet Count 104 K/mm3 (150-400); RDW Coefficient Variation 13.7 % (11.7-14.2); RDW Standard Deviation 51.5 fL (35.1-46.3)
[2025-04-05 05:56] LABS: Alanine Aminotransfer (ALT/SGP 17.0 U/L (12-78); Albumin, Blood 1.6 g/dL (3.4-5.0); Albumin/Globulin Ratio 0.3 (0.8-1.8); Anion Gap 7.0 mmol/L (3-11); Aspartate Aminotrans (AST/SGOT 35.0 U/L (12-37); Bilirubin, Total 0.4 mg/dL (0.1-1.0); Blood Urea Nitrogen 21.0 mg/dL (8-24); CO2, Blood 27.0 mmol/L (21-32); Calcium, Blood 9.7 mg/dL (8.5-10.1); Chloride, Blood 108.0 mmol/L (98-108); Creatinine, Blood 0.81 mg/dL (0.40-1.00); Globulin, Blood 5.7 g/dL (2.2-4.0); Glucose, Blood 129.0 mg/dL (70-99); Potassium, Blood 3.9 mmol/L (3.5-5.5); Sodium, Blood 138.0 mmol/L (136-145); Total Protein, Blood 7.3 g/dL (6.4-8.2)
[2025-04-05 07:57] VITALS: BP 143/81
[2025-04-05] MEDS ORDERED: Dexamethasone Sod Phos 10 MG/ML 1ML VIAL IV SCH (08:00)
--- NOTE | 2025-04-05 11:06 | NUR ---
AMBAR SOLIS'Velia WITH DR DUENAS'S PERMISSION. PT SAT TO DANGLE AT BEDSIDE FOR APPROXIMATELY 5 MINUTES WITH OCCUPATIONAL THERAPY. PT REPOSITIONED FOR TURN. WILL CONTINUE TO MONITOR. PLAN TO PLACE PUREWICK EXTERNAL CATHETER SYSTEM.
[2025-04-05 14:54] VITALS: BP 123/80
--- NOTE | 2025-04-05 17:59 | NUR ---
PT PROVIDED CHOCOLATE ENSURE TO SUPPLEMENT FOR MEAL.
--- NOTE | 2025-04-05 17:59 | NUR ---
SHIFT SUMMARY PT WAS ABLE TO DANGLE AT BEDSIDE FOR APPROX 5 MINUTES THIS AM. AMBAR SOLIS'Velia THIS SHIFT. DAUGHTER AT BEDSIDE HELPING PT WITH MEAL TRAY. PUREWICK SYSTEM IN USE. IV INFUSING L AC. WILL CONTINUE TO MONITOR.
[2025-04-05 19:16] VITALS: BP 146/94
[2025-04-05] MEDS ORDERED: Valproic Acid Syrup 250MG / 5ML 1 ML PO SCH (21:00)
[2025-04-05 23:29] VITALS: BP 139/89
[2025-04-06 03:58] VITALS: BP 143/81
--- NOTE | 2025-04-06 06:47 | NUR ---
SHIFT SUMMARY PT HAS RESTED MOST OF THE NIGHT. DENIES PAIN, SURGICAL SITE WNL. DRESSING INTACT. PT DENIES N/T. PT STARTED ON BOWEL CARE YESTERDAY D/T CONSTIPATION. PT UNSURE OF HER LAST BM. PT DID HAVE FECAL IMPACTION. NOTIFIED, AND ENEMA WAS ORDERED. ENEMA WAS EFFECTIVE, AND PT PASSED A LARGE AMOUNT OF STOOL. IV ANTIBIOTICS PER ORDERS. PT VOIDING. VITALS STABLE. NO OTHER CHANGES TO REPORT OVERNIGHT. PLAN IS FOR DC TUESDAY. BED IN LOWEST POSITION, CALL LIGHT WITHIN REACH.
[2025-04-06 07:40] LABS: BASOPHILS ABSOLUTE AUTO 0.01 K/mm3 (0.00-0.23); BASOPHILS PERCENT AUTO 0 % (0-2); EOSINOPHILS ABSOLUTE AUTO 0.00 K/mm3 (0.00-0.68); EOSINOPHILS PERCENT AUTO 0 % (0-6); Hematocrit 31.4 % (33.0-51.0); Hemoglobin 10.7 g/dL (11.5-16.0); IMMATURE GRAN ABSOLUTE AUTO 0.02 K/mm3 (0.00-0.10); IMMATURE GRAN PERCENT AUTO 0 % (0-1); LYMPHOCYTES ABSOLUTE AUTO 0.64 K/mm3 (0.84-5.20); LYMPHOCYTES PERCENT AUTO 14 % (21-46); MONOCYTES ABSOLUTE AUTO 0.26 K/mm3 (0.16-1.47); MONOCYTES PERCENT AUTO 6 % (4-13); Mean Corpuscular HGB Conc 34.1 g/dL (31.5-36.5); Mean Corpuscular Volume 101 fL (80-100); NEUTROPHILS ABSOLUTE AUTO 3.67 K/mm3 (1.96-9.15); NEUTROPHILS PERCENT AUTO 80 % (41-73); NRBC ABSOLUTE 0.00 K/mm3 (0.00-0.02); NRBC Auto 0.0 /100 WBC (0.0-0.2); Platelet Count 115 K/mm3 (150-400); RDW Coefficient Variation 13.6 % (11.7-14.2); RDW Standard Deviation 50.9 fL (35.1-46.3)
[2025-04-06 08:03] LABS: Alanine Aminotransfer (ALT/SGP 17.0 U/L (12-78); Albumin, Blood 1.6 g/dL (3.4-5.0); Albumin/Globulin Ratio 0.3 (0.8-1.8); Anion Gap 7.0 mmol/L (3-11); Aspartate Aminotrans (AST/SGOT 28.0 U/L (12-37); Bilirubin, Total 0.3 mg/dL (0.1-1.0); Blood Urea Nitrogen 27.0 mg/dL (8-24); CO2, Blood 27.0 mmol/L (21-32); Calcium, Blood 9.0 mg/dL (8.5-10.1); Chloride, Blood 107.0 mmol/L (98-108); Creatinine, Blood 0.71 mg/dL (0.40-1.00); Globulin, Blood 5.6 g/dL (2.2-4.0); Glucose, Blood 126.0 mg/dL (70-99); Potassium, Blood 3.3 mmol/L (3.5-5.5); Sodium, Blood 138.0 mmol/L (136-145); Total Protein, Blood 7.2 g/dL (6.4-8.2)
[2025-04-06 08:05] VITALS: BP 149/84
--- NOTE | 2025-04-06 09:10 | NUR ---
THERAPY IN WITH PATIENT.
[2025-04-06 12:20] VITALS: BP 145/93
[2025-04-06 14:45] LABS: Anion Gap 9.0 mmol/L (3-11); Blood Urea Nitrogen 27.0 mg/dL (8-24); CO2, Blood 25.0 mmol/L (21-32); Calcium, Blood 8.8 mg/dL (8.5-10.1); Chloride, Blood 109.0 mmol/L (98-108); Creatinine, Blood 0.63 mg/dL (0.40-1.00); Glucose, Blood 180.0 mg/dL (70-99); Potassium, Blood 4.3 mmol/L (3.5-5.5); Sodium, Blood 139.0 mmol/L (136-145)
[2025-04-06 15:45] VITALS: BP 137/75
--- NOTE | 2025-04-06 17:09 | NUR ---
SUMMARY NO ACUTE CHANGES T/O SHIFT. PT HAS EXPRESSIVE APHASIA, HAS DIFFICULTY RESPONDING TO QUESTIONS AT TIMES. C COLLAR IN PLACE, RUE IN SLING. RLE ELEVATED ON PILLOWS. PT WORKED WITH THERAPY IN BED THIS AM. SPOUSE AND DAUGHTERS IN AND OUT OF ROOM T/O SHIFT. PT SLEPT OFF AND ON T/O DAY. REPOSITIONED T/O SHIFT. PUREWICK AND ATTENDS CHANGED MIDSHIFT. CALL LIGHT IN REACH.
[2025-04-06 19:36] VITALS: BP 146/72
[2025-04-06 20:36] LABS: VITAMIN D,1,25-DIHYDROXY 25.6 pg/mL (19.9-79.3)
[2025-04-07 05:06] VITALS: BP 134/73
[2025-04-07 05:54] LABS: BASOPHILS ABSOLUTE AUTO 0.01 K/mm3 (0.00-0.23); BASOPHILS PERCENT AUTO 0 % (0-2); EOSINOPHILS ABSOLUTE AUTO 0.00 K/mm3 (0.00-0.68); EOSINOPHILS PERCENT AUTO 0 % (0-6); Hematocrit 31.1 % (33.0-51.0); Hemoglobin 10.7 g/dL (11.5-16.0); IMMATURE GRAN ABSOLUTE AUTO 0.02 K/mm3 (0.00-0.10); IMMATURE GRAN PERCENT AUTO 1 % (0-1); LYMPHOCYTES ABSOLUTE AUTO 0.56 K/mm3 (0.84-5.20); LYMPHOCYTES PERCENT AUTO 14 % (21-46); MONOCYTES ABSOLUTE AUTO 0.14 K/mm3 (0.16-1.47); MONOCYTES PERCENT AUTO 3 % (4-13); Mean Corpuscular HGB Conc 34.4 g/dL (31.5-36.5); Mean Corpuscular Volume 101 fL (80-100); NEUTROPHILS ABSOLUTE AUTO 3.33 K/mm3 (1.96-9.15); NEUTROPHILS PERCENT AUTO 82 % (41-73); NRBC ABSOLUTE 0.00 K/mm3 (0.00-0.02); NRBC Auto 0.0 /100 WBC (0.0-0.2); Platelet Count 120 K/mm3 (150-400); RDW Coefficient Variation 13.6 % (11.7-14.2); RDW Standard Deviation 50.1 fL (35.1-46.3)
--- NOTE | 2025-04-07 06:12 | NUR ---
SHIFT SUMMARY PT HAS RESTED T/O THE NIGHT. SURGICAL SITE WNL, PT REPORTS MINIMAL PAIN TO RLE AND DECLINES ANYTHING FOR PAIN. VITALS ARE STABLE. PLAN OF CARE UNCHANGED. PLAN IS FOR SNF DISCHARGE. BED IN LOWEST POSITION, CALL LIGHT WITHIN REACH.
[2025-04-07 06:16] LABS: Alanine Aminotransfer (ALT/SGP 16.0 U/L (12-78); Albumin, Blood 1.6 g/dL (3.4-5.0); Albumin/Globulin Ratio 0.3 (0.8-1.8); Anion Gap 8.0 mmol/L (3-11); Aspartate Aminotrans (AST/SGOT 21.0 U/L (12-37); Bilirubin, Total 0.3 mg/dL (0.1-1.0); Blood Urea Nitrogen 27.0 mg/dL (8-24); CO2, Blood 26.0 mmol/L (21-32); Calcium, Blood 8.4 mg/dL (8.5-10.1); Chloride, Blood 110.0 mmol/L (98-108); Creatinine, Blood 0.68 mg/dL (0.40-1.00); Globulin, Blood 5.2 g/dL (2.2-4.0); Glucose, Blood 130.0 mg/dL (70-99); Potassium, Blood 3.9 mmol/L (3.5-5.5); Sodium, Blood 140.0 mmol/L (136-145); Total Protein, Blood 6.8 g/dL (6.4-8.2)
[2025-04-07 07:10] VITALS: BP 140/89
[2025-04-07] MEDS ORDERED: Multivitamins 1 Tab PO SCH (09:00)
[2025-04-07 16:23] VITALS: BP 128/88
--- NOTE | 2025-04-07 17:22 | NUR ---
SUMMARY ASSUMED CAR EOF PT @0700. PT ALERT, CONVERSIVE (WITH RESPECTS TO BASELINE EXPRESSIVE APHASIA). TOELRATING REPOSITIONING WELL ALONG WITH MOVING ARMS MORE AND ORAL CARE. PUREWICK REMAINS IN PLACE. PT UTILIZING IS/FLUTTER THERAPY WITH NURSE PROMPTING. SPLINT TO R LEG REMAINS CDI. SLING TO R ARM REMAINS. PT DENIES N/T TO EXTREMITIES. FAMILY AT BEDSIDE T/O SHIFT TODAY, ENCOURAGING PT TO MOVE MORE AND OT'S OVERALL REHAB STATE. PT TITRATED OFF OF O2 CURRENTLY, SPOT CHECKS WITH SPO2 >92%. VSS. CALL LIGHT WITHIN REACH.
[2025-04-07 19:24] VITALS: BP 127/74
[2025-04-07 20:24] LABS: ALBUMIN %,URINE 45.5 %; ALPHA-1 %,URINE 4.0 %; ALPHA-2 %,URINE 6.0 %; BETA GLOBULIN %,URINE 6.0 %; GAMMA GLOBULIN %,URINE 38.5 %; HOURS COLLECTED 24 hr; PARAPROTEIN %,URINE 33.1 %; PARAPROTEIN EXCRETION/24 HOUR 55.6
[2025-04-08 00:01] VITALS: BP 131/75
[2025-04-08 03:57] VITALS: BP 148/93
[2025-04-08 05:31] LABS: BASOPHILS ABSOLUTE AUTO 0.01 K/mm3 (0.00-0.23); BASOPHILS PERCENT AUTO 0 % (0-2); EOSINOPHILS ABSOLUTE AUTO 0.00 K/mm3 (0.00-0.68); EOSINOPHILS PERCENT AUTO 0 % (0-6); Hematocrit 32.5 % (33.0-51.0); Hemoglobin 11.2 g/dL (11.5-16.0); IMMATURE GRAN ABSOLUTE AUTO 0.01 K/mm3 (0.00-0.10); IMMATURE GRAN PERCENT AUTO 0 % (0-1); LYMPHOCYTES ABSOLUTE AUTO 0.56 K/mm3 (0.84-5.20); LYMPHOCYTES PERCENT AUTO 15 % (21-46); MONOCYTES ABSOLUTE AUTO 0.19 K/mm3 (0.16-1.47); MONOCYTES PERCENT AUTO 5 % (4-13); Mean Corpuscular HGB Conc 34.5 g/dL (31.5-36.5); Mean Corpuscular Volume 99 fL (80-100); NEUTROPHILS ABSOLUTE AUTO 2.88 K/mm3 (1.96-9.15); NEUTROPHILS PERCENT AUTO 79 % (41-73); NRBC ABSOLUTE 0.00 K/mm3 (0.00-0.02); NRBC Auto 0.0 /100 WBC (0.0-0.2); Platelet Count 120 K/mm3 (150-400); RDW Coefficient Variation 13.2 % (11.7-14.2); RDW Standard Deviation 48.3 fL (35.1-46.3)
--- NOTE | 2025-04-08 05:38 | NUR ---
VICE PRESIDENT PAYMENT SUMMARY NO ACUTE CHANGES THIS SHIFT. PT AAOX4 AND PLEASANT. DENIES PAIN TO R ARM OR RLE. ABLE TO WIGGLE FINGERS AND TOES ON R SIDE WITH NO ISSUE. SPLINT IN PLACE TO RLE, TOES WITH GOOD CAP REFILL AND SENSATION. REPOSITIONED REGULARLY THROUGH THE NIGHT. PUREWICK URINE CATHETER IN PLACE. PLAN FOR DC TO [facility] LATER TODAY. VSS, JULIA.
[2025-04-08 05:47] LABS: Anion Gap 7.0 mmol/L (3-11); Blood Urea Nitrogen 33.0 mg/dL (8-24); CO2, Blood 28.0 mmol/L (21-32); Calcium, Blood 8.2 mg/dL (8.5-10.1); Chloride, Blood 110.0 mmol/L (98-108); Creatinine, Blood 0.63 mg/dL (0.40-1.00); Glucose, Blood 126.0 mg/dL (70-99); Potassium, Blood 3.8 mmol/L (3.5-5.5); Sodium, Blood 141.0 mmol/L (136-145)
[2025-04-08 08:00] VITALS: BP 142/95
--- NOTE | 2025-04-08 16:01 | NUR ---
third attempt at giving report to [facility] unanswered. voicemail left with surgical floor number. awaiting return call.
--- NOTE | 2025-04-08 16:19 | NUR ---
[facility] HERE WITH STRETCHER TO TRANSPORT PT TO [facility].
--- NOTE | 2025-04-08 16:54 | NUR ---
PALLIATIVE CARE VISIT: MET WITH PT AT 1400. PT RECIEVING PHYSICAL THERAPY AND IS SITTING UP AT BEDSIDE. PT DENIES PAIN. SPOKE TO SPOUSE ABOUT COMPLETING A POLST. SPOUSE DENIES NEED FOR POLST. REPORTS SYMPTOMS ARE MANAGED.
[2025-04-10 07:47] LABS: ALPHA 1 GLOBULIN 0.41 g/dL (0.19-0.46); ALPHA 2 GLOBULIN 0.81 g/dL (0.48-1.05); BETA GLOBULIN 2.04 g/dL (0.48-1.10); GAMMA 1.75 g/dL (0.62-1.51); IMMUNOFIXATION REFLEX IFE Done
== END 2025-04-08 16:30 | DRG 492 ==
LOC: ER 12:16 → SURS 15:49
PROVIDERS: Family Medicine; Hospitalist; Internal Medicine Hematology & Oncology; Nurse Practitioner Acute Care; Podiatrist Foot & Ankle Surgery; Student in an Organized Health Care Education/Training Program; ADMIT Hospitalist
PROC: 0QSJ04Z Reposition Right Fibula with Internal Fixation Device, Open Approach (ICD-10-PCS; principal; 2025-04-01 16:30)
PROC: 3E03329 Introduction of Other Anti-infective into Peripheral Vein, Percutaneous Approach (ICD-10-PCS; 2025-04-04)
DX: S82.851A Displaced trimalleolar fracture of right lower leg, initial encounter for closed fracture (principal); J69.0 Pneumonitis due to inhalation of food and vomit; M48.54XA Collapsed vertebra, not elsewhere classified, thoracic region, initial encounter for fracture; N17.9 Acute kidney failure, unspecified; I69.351 Hemiplegia and hemiparesis following cerebral infarction affecting right dominant side; I48.20 Chronic atrial fibrillation, unspecified; M84.611A Pathological fracture in other disease, right shoulder, initial encounter for fracture; C90.00 Multiple myeloma not having achieved remission; R65.10 Systemic inflammatory response syndrome (SIRS) of non-infectious origin without acute organ dysfunction; I48.91 Unspecified atrial fibrillation; E87.6 Hypokalemia; E83.52 Hypercalcemia; I10 Essential (primary) hypertension; K59.03 Drug induced constipation; T39.1X5A Adverse effect of 4-Aminophenol derivatives, initial encounter; D53.9 Nutritional anemia, unspecified; R54 Age-related physical debility; Z79.01 Long term (current) use of anticoagulants; Z88.8 Allergy status to other drugs, medicaments and biological substances; Z79.899 Other long term (current) drug therapy; Z90.89 Acquired absence of other organs; Z96.642 Presence of left artificial hip joint; Z87.891 Personal history of nicotine dependence; W18.30XA Fall on same level, unspecified, initial encounter
CPT/HCPCS: 29515; 36415; 51702; 70450; 71045; 71250; 72125; 73610; 73630; 74176; 80048; 80053; 81001; 82232; 82306; 82330; 82607; 82652; 82746; 82784; 83521; 83605; 83615; 83735; 83970; 84132; 84145; 84155; 84156; 84165; 84166; 85014; 85018; 85025; 85049; 85520; 85610; 85730; 86334; 86335; 87040; 92526; 92610; 93005; 93010; 94664; 94760; 96365; 96366; 96368; 96375; 96376; 97110; 97163; 97167; 97530; 99285-25; A6253; A9270; C1713; G0378; J0690; J0696; J1100; J1644; J2250; J2371; J2704; J3010; J3475; J3480; J3489; J7030; J7050; J7120

== ENCOUNTER 2025-04-21 23:31 | Observation (INO) | payer OTHER ==
[~2025-04-21] VITALS: Ht 162.6 cm; Wt 59.0 kg
[~2025-04-21 23:31] MED LIST changes: +DIVALPROEX SOD500 M2 PO; -PRAV20 PO; +PRAVASTATIN SOD40 MG PO
[2025-04-22 00:55] LABS: BASOPHILS ABSOLUTE AUTO 0.03 K/mm3 (0.00-0.23); BASOPHILS PERCENT AUTO 1 % (0-2); EOSINOPHILS ABSOLUTE AUTO 0.07 K/mm3 (0.00-0.68); EOSINOPHILS PERCENT AUTO 2 % (0-6); Hematocrit 39.3 % (33.0-51.0); Hemoglobin 13.7 g/dL (11.5-16.0); IMMATURE GRAN ABSOLUTE AUTO 0.02 K/mm3 (0.00-0.10); IMMATURE GRAN PERCENT AUTO 1 % (0-1); LYMPHOCYTES ABSOLUTE AUTO 2.13 K/mm3 (0.84-5.20); LYMPHOCYTES PERCENT AUTO 50 % (21-46); MONOCYTES ABSOLUTE AUTO 0.48 K/mm3 (0.16-1.47); MONOCYTES PERCENT AUTO 11 % (4-13); Mean Corpuscular HGB Conc 34.9 g/dL (31.5-36.5); Mean Corpuscular Volume 100 fL (80-100); NEUTROPHILS ABSOLUTE AUTO 1.54 K/mm3 (1.96-9.15); NEUTROPHILS PERCENT AUTO 36 % (41-73); NRBC ABSOLUTE 0.00 K/mm3 (0.00-0.02); NRBC Auto 0.0 /100 WBC (0.0-0.2); Platelet Count 192 K/mm3 (150-400); RDW Coefficient Variation 13.1 % (11.7-14.2); RDW Standard Deviation 47.2 fL (35.1-46.3)
[2025-04-22 01:07] LABS: Alanine Aminotransfer (ALT/SGP 12.0 U/L (12-78); Albumin, Blood 2.4 g/dL (3.4-5.0); Albumin/Globulin Ratio 0.4 (0.8-1.8); Anion Gap 8.0 mmol/L (3-11); Aspartate Aminotrans (AST/SGOT 18.0 U/L (12-37); Bilirubin, Total 0.5 mg/dL (0.1-1.0); Blood Urea Nitrogen 12.0 mg/dL (8-24); CO2, Blood 24.0 mmol/L (21-32); Calcium, Blood 9.2 mg/dL (8.5-10.1); Chloride, Blood 107.0 mmol/L (98-108); Creatinine, Blood 0.75 mg/dL (0.40-1.00); Globulin, Blood 5.8 g/dL (2.2-4.0); Glucose, Blood 88.0 mg/dL (70-99); Potassium, Blood 4.3 mmol/L (3.5-5.5); Sodium, Blood 135.0 mmol/L (136-145); Total Protein, Blood 8.2 g/dL (6.4-8.2)
[2025-04-22 02:56] LABS: Influenza A, PCR NEGATIVE (NEGATIVE); Influenza B, PCR NEGATIVE (NEGATIVE); Resp Syncytial Virus, PCR NEGATIVE (NEGATIVE); SARS-Cov-2 (COVID-19) PCR, MMC NEGATIVE (NEGATIVE)
[2025-04-22 03:16] LABS: Source, Urine Clean Catch
[2025-04-22 03:18] LABS: Bilirubin, Urine Neg (Neg); Glucose Qualitative, Urine Neg (Neg); Ketones, Urine Neg (Neg); Leukocyte Esterase, Urine 2+ (Neg); Protein, Urine 1+ (Neg); Specific Gravity, Urine 1.005 (1.003-1.022); Urobilinogen, Urine 1+ (Normal)
[2025-04-22 03:21] LABS: Color, Urine Yellow (P-Yellow)
[2025-04-22 03:24] LABS: Red Blood Cells, Urine Not Seen /hpf (0-2)
[2025-04-22] MEDS ORDERED: CefTRIAXone Sodium 1,000 MG in NS 50 ML IV ONE (03:30)
[2025-04-22] MEDS ORDERED: NS 1,000 ML IV SCH (03:30)
[2025-04-22] MEDS ORDERED: Ondansetron HCl 2 MG / ML 2ML Vial IV PRN (04:00)
[2025-04-22] MEDS ORDERED: NS 1,000 ML IV ONE (04:00)
[2025-04-22 05:07] LABS: BASOPHILS ABSOLUTE AUTO 0.02 K/mm3 (0.00-0.23); BASOPHILS PERCENT AUTO 1 % (0-2); EOSINOPHILS ABSOLUTE AUTO 0.07 K/mm3 (0.00-0.68); EOSINOPHILS PERCENT AUTO 2 % (0-6); Hematocrit 34.1 % (33.0-51.0); Hemoglobin 11.7 g/dL (11.5-16.0); IMMATURE GRAN ABSOLUTE AUTO 0.01 K/mm3 (0.00-0.10); IMMATURE GRAN PERCENT AUTO 0 % (0-1); LYMPHOCYTES ABSOLUTE AUTO 2.02 K/mm3 (0.84-5.20); LYMPHOCYTES PERCENT AUTO 52 % (21-46); MONOCYTES ABSOLUTE AUTO 0.49 K/mm3 (0.16-1.47); MONOCYTES PERCENT AUTO 13 % (4-13); Mean Corpuscular HGB Conc 34.3 g/dL (31.5-36.5); Mean Corpuscular Volume 101 fL (80-100); NEUTROPHILS ABSOLUTE AUTO 1.30 K/mm3 (1.96-9.15); NEUTROPHILS PERCENT AUTO 33 % (41-73); NRBC ABSOLUTE 0.00 K/mm3 (0.00-0.02); NRBC Auto 0.0 /100 WBC (0.0-0.2); Platelet Count 159 K/mm3 (150-400); RDW Coefficient Variation 13.2 % (11.7-14.2); RDW Standard Deviation 48.7 fL (35.1-46.3)
[2025-04-22 05:39] LABS: Alanine Aminotransfer (ALT/SGP 10.0 U/L (12-78); Albumin, Blood 2.1 g/dL (3.4-5.0); Albumin/Globulin Ratio 0.4 (0.8-1.8); Anion Gap 7.0 mmol/L (3-11); Aspartate Aminotrans (AST/SGOT 16.0 U/L (12-37); Bilirubin, Total 0.5 mg/dL (0.1-1.0); Blood Urea Nitrogen 12.0 mg/dL (8-24); CO2, Blood 25.0 mmol/L (21-32); Calcium, Blood 8.5 mg/dL (8.5-10.1); Chloride, Blood 110.0 mmol/L (98-108); Creatinine, Blood 0.72 mg/dL (0.40-1.00); Globulin, Blood 4.9 g/dL (2.2-4.0); Glucose, Blood 80.0 mg/dL (70-99); Potassium, Blood 4.2 mmol/L (3.5-5.5); Sodium, Blood 138.0 mmol/L (136-145); Total Protein, Blood 7.0 g/dL (6.4-8.2)
[2025-04-22 06:40] LABS: Source, Urine Clean Catch
[2025-04-22 06:44] LABS: Bilirubin, Urine Neg (Neg); Color, Urine Yellow (P-Yellow); Glucose Qualitative, Urine Neg (Neg); Ketones, Urine Neg (Neg); Leukocyte Esterase, Urine Neg (Neg); Protein, Urine Neg (Neg); Specific Gravity, Urine 1.010 (1.003-1.022); Urobilinogen, Urine NORM (Normal)
[2025-04-22 06:54] LABS: White Blood Cells, Urine 0-2 /hpf (0-5)
[2025-04-22 06:55] LABS: U Amphetamine Screen Not Detected; U Barbituate Screen Not Detected; U Benzodiazapine Screen Not Detected; U Buprenorphine Screen Not Detected; U Cannabinoids Screen Not Detected; U Cocaine Screen Not Detected; U Methadone Screen Not Detected; U Methamphetamine Screen Not Detected; U Opiates Screen Not Detected; U Oxycodone Screen Not Detected; U Phencyclidine Screen Not Detected
[2025-04-22] MEDS ORDERED: Enoxaparin 40 MG/0.4 ML SYR SC SCH (09:00)
[2025-04-22 11:28] VITALS: BP 101/58
[2025-04-22] MEDS ORDERED: ASPI325 PO ×2 (12:11)
[2025-04-22] MEDS ORDERED: Vitamin D1000 UNI1 PO ×2 (12:13)
[2025-04-22 15:03] VITALS: BP 105/68
[2025-04-22 16:05] VITALS: BP 114/71
--- NOTE | 2025-04-22 17:56 | NUR ---
SHIFT SUMMARY- PT ADMITTED THROUGH THE ER. PT WAS AT [facility] FOR A RIGHT ANKLE Fx WITH SURGICAL FIXATION, WHEN SHE STARTED TO DEMONSTRATE ALTERED MENTAL STATUS. FAMILY NOTED AND BECAME CONCERNED. ON ARRIVAL TO MED FLOOR THE PT IS NOTED TO HAVE BLADDER AD BOWEL INCONTINENCE (PER SPOISE REPORT). PHOTOS WERE TAKEN OF THE INNER THIGHS AND BUTTOX. THE SKIN IS EXCORIATED AND BLISTERED. DR REVIEWED THE PHOTOS, MEDS ORDERED. PT HAS A RIGHT BROKEN CLAVICLE AND A C-SPINE Fx WELL A RIB ON THE RIGHT (PER FAMILY REPORT), PT HAS A HARD CAST PRESENT ON THE RLE. PT DENIES ANY PAIN AND HAS NO OUTWARD S&S OF PAIN. PT WAS ABLE TO HAVE A BM ON THE BEDPAN AFTER ARRIVING ON MED FLOOR. SPOKE TO DR AFTER NOW DOSE OF LASIX WAS ORDERED, PT HYPOTENSIVE. ORDERED TO HOLD. PT HAS VERY LABILE BPS. PT OFTEN SAYS YES WHEN SHE MEANS NO, DUE TO HER Hx CVA SHE HAS DIFFICULTY WITH HER WORDS AT TIMES. FAMILY HAS MADE THEIR WISHES CLEAR TO THE DR AND STAFF, THEY DO NOT WANT THE PT TO GO TO SNF. PT EVALUATED THE PT TODAY. PT WILL REQUIRE A LIFT, BEDSIDE COMMODE AND WHEELCHAIR WELL A HOSPITAL BED IF THE PT DOES NOT ALREADY HAVE ONE. CARE MANAGEMENT IS AWARE.
[2025-04-22 20:27] VITALS: BP 102/69
[2025-04-22] MEDS ORDERED: Zinc Oxide Ointment 30 GM TOP SCH (21:00)
[2025-04-22 23:27] VITALS: BP 118/69
--- NOTE | 2025-04-23 04:15 | NUR ---
SHIFT SUMMARY 74 YR F ADMITTED ON 04/21/25. FULL CODE. NO ACUTE CHANGES THIS SHIFT. PT APPERS TO BE PLEASANTLY CONFUSED. PER ORDAINED MINISTER SHE IS SR @ 94 WITH NO ADVERSE EVENTS. MEDICATED ONCE WITH TYLENOL THIS SHIFT. NO NEW EVENTS TO REPORT. BED IN LOW POSITION WITH CALL LIGHT IN REACH.
[2025-04-23 04:19] VITALS: BP 139/81
--- NOTE | 2025-04-23 05:21 | NUR ---
BLADDER SCAN SHOWED 94 ML @ 0500 0N 04/23/25.
[2025-04-23] MEDS ORDERED: CefTRIAXone Sodium 1,000 MG in NS 100 ML IV SCH (06:00)
[2025-04-23 06:08] LABS: BASOPHILS ABSOLUTE AUTO 0.03 K/mm3 (0.00-0.23); BASOPHILS PERCENT AUTO 1 % (0-2); EOSINOPHILS ABSOLUTE AUTO 0.09 K/mm3 (0.00-0.68); EOSINOPHILS PERCENT AUTO 3 % (0-6); Hematocrit 35.9 % (33.0-51.0); Hemoglobin 12.1 g/dL (11.5-16.0); IMMATURE GRAN ABSOLUTE AUTO 0.01 K/mm3 (0.00-0.10); IMMATURE GRAN PERCENT AUTO 0 % (0-1); LYMPHOCYTES ABSOLUTE AUTO 1.49 K/mm3 (0.84-5.20); LYMPHOCYTES PERCENT AUTO 50 % (21-46); MONOCYTES ABSOLUTE AUTO 0.37 K/mm3 (0.16-1.47); MONOCYTES PERCENT AUTO 13 % (4-13); Mean Corpuscular HGB Conc 33.7 g/dL (31.5-36.5); Mean Corpuscular Volume 101 fL (80-100); NEUTROPHILS ABSOLUTE AUTO 0.98 K/mm3 (1.96-9.15); NEUTROPHILS PERCENT AUTO 33 % (41-73); NRBC ABSOLUTE 0.00 K/mm3 (0.00-0.02); NRBC Auto 0.0 /100 WBC (0.0-0.2); Platelet Count 165 K/mm3 (150-400); RDW Coefficient Variation 13.2 % (11.7-14.2); RDW Standard Deviation 49.3 fL (35.1-46.3)
[2025-04-23 06:29] LABS: Alanine Aminotransfer (ALT/SGP 12.0 U/L (12-78); Albumin, Blood 2.2 g/dL (3.4-5.0); Albumin/Globulin Ratio 0.4 (0.8-1.8); Anion Gap 9.0 mmol/L (3-11); Aspartate Aminotrans (AST/SGOT 15.0 U/L (12-37); Bilirubin, Total 0.4 mg/dL (0.1-1.0); Blood Urea Nitrogen 12.0 mg/dL (8-24); CO2, Blood 23.0 mmol/L (21-32); Calcium, Blood 8.4 mg/dL (8.5-10.1); Chloride, Blood 108.0 mmol/L (98-108); Creatinine, Blood 0.66 mg/dL (0.40-1.00); Globulin, Blood 5.4 g/dL (2.2-4.0); Glucose, Blood 76.0 mg/dL (70-99); Potassium, Blood 3.7 mmol/L (3.5-5.5); Sodium, Blood 136.0 mmol/L (136-145); Total Protein, Blood 7.6 g/dL (6.4-8.2)
[2025-04-23 07:34] VITALS: BP 115/70
[2025-04-23 15:22] VITALS: BP 120/88
[2025-04-23] MEDS ORDERED: ACYCLOVIR400 MG PO (16:36)
[2025-04-23] MEDS ORDERED: DEXA4 PO (16:54)
[2025-04-23] MEDS ORDERED: HYDROCODONE-AC1 EA19 PO (16:59)
[2025-04-23] MEDS ORDERED: MONT10T PO (17:02)
--- NOTE | 2025-04-23 17:47 | NUR ---
SHIFT SUMMARY- PT HAS HAD STRONG MALODOROUS URINE T/O THE DAY. ZINC OXIDE CREAM APPLIED TO THE RASH AND SHE REPORTED RELIEF. PT IS INCONTINENT AND SHE VOIDS TO THE REAR OF THE ATTENDS, SO ON INITIAL CHECK SHE APPEARS DRY. SHE VOIDS HEAVILY SO STAFF SHOULD BE SURE TO CHECK HER FREQUENTLY TO PREVENT FIRTHER SKIN DAMAGE. PT IS IN BED, CALL LIGHT IN REACH, THOUGH SHE DOES NOT USE IT. SPOUSE AT THE BEDSIDE. THEY HAVE DECLINED SNF AND THE PLAN IS TO SEND HER HOME WITH HOME HEALTH IF CARE MANAGEMENT CAN GET THE NEEDED DME BY THEN. WILL PASS ON TO NIGHT RN IN REPORT.
[2025-04-23 20:00] VITALS: BP 123/82
[2025-04-24 02:51] VITALS: BP 143/86
--- NOTE | 2025-04-24 04:39 | NUR ---
SHIFT SUMMARY 74 YR F ADMITTED ON 04/21/25. FULL CODE. NO ACUTE CHANGES THIS SHIFT. PT HAS HAD NO C/O PAIN OR DISCOMFORT. SHE HAS SLEPT FOR MOST OF THE NIGHT. SHE DOES NOT USE HER CALL LIGHT SO CHECKED OFTEN FOR INCONTINENCE. NO NEW CHANGES TO REPORT. BED IN LOW POSITION AND CALL LIGHT IN REACH.
[2025-04-24 04:53] LABS: BASOPHILS ABSOLUTE AUTO 0.02 K/mm3 (0.00-0.23); BASOPHILS PERCENT AUTO 1 % (0-2); EOSINOPHILS ABSOLUTE AUTO 0.06 K/mm3 (0.00-0.68); EOSINOPHILS PERCENT AUTO 2 % (0-6); Hematocrit 34.4 % (33.0-51.0); Hemoglobin 11.7 g/dL (11.5-16.0); IMMATURE GRAN ABSOLUTE AUTO 0.00 K/mm3 (0.00-0.10); IMMATURE GRAN PERCENT AUTO 0 % (0-1); LYMPHOCYTES ABSOLUTE AUTO 1.27 K/mm3 (0.84-5.20); LYMPHOCYTES PERCENT AUTO 52 % (21-46); MONOCYTES ABSOLUTE AUTO 0.37 K/mm3 (0.16-1.47); MONOCYTES PERCENT AUTO 15 % (4-13); Mean Corpuscular HGB Conc 34.0 g/dL (31.5-36.5); Mean Corpuscular Volume 101 fL (80-100); NEUTROPHILS ABSOLUTE AUTO 0.74 K/mm3 (1.96-9.15); NEUTROPHILS PERCENT AUTO 30 % (41-73); NRBC ABSOLUTE 0.00 K/mm3 (0.00-0.02); NRBC Auto 0.0 /100 WBC (0.0-0.2); Platelet Count 156 K/mm3 (150-400); RDW Coefficient Variation 13.2 % (11.7-14.2); RDW Standard Deviation 48.5 fL (35.1-46.3)
[2025-04-24 05:17] LABS: Anion Gap 9.0 mmol/L (3-11); Blood Urea Nitrogen 10.0 mg/dL (8-24); CO2, Blood 24.0 mmol/L (21-32); Calcium, Blood 8.7 mg/dL (8.5-10.1); Chloride, Blood 108.0 mmol/L (98-108); Creatinine, Blood 0.68 mg/dL (0.40-1.00); Glucose, Blood 81.0 mg/dL (70-99); Potassium, Blood 3.7 mmol/L (3.5-5.5); Sodium, Blood 137.0 mmol/L (136-145)
[2025-04-24 07:14] VITALS: BP 133/78
[2025-04-24] MEDS ORDERED: NS 100 ML IV ONE (12:51)
[2025-04-24] MEDS ORDERED: ERTAPENEM1 G1 IV ×2 (14:12)
[2025-04-24 14:31] VITALS: BP 146/92
--- NOTE | 2025-04-24 17:51 | NUR ---
DISCHARGE REVIEWED DISCHARGE INSTRUCTIONS W/PATIENT WHO VERBALIZED UNDERSTANDING, PACKET SENT FOR SPOUSE WHO WAS ALSO AWARE OF DISCHARGE INSTRUCTIONS AND INFUSION APPTS, IV LEFT IN PLACE FOR ABX (DRESSING CHANGED), TRANSPORTED VIA [employer] @ 0647 TO DISCHARGE HOME, ALL BELONGINGS SENT WITH PATIENT.
[2025-04-25] MEDS ORDERED: FENO145 PO (16:38)
[2025-04-25] MEDS ORDERED: PRAV20 PO (16:38)
[2025-04-25] MEDS ORDERED: DIVA125 PO (16:39)
[2025-05-01] MEDS ORDERED: VITAMIN D325 MC3 PO (07:54)
[2025-05-02] MEDS ORDERED: FURO20 PO (12:49)
== END 2025-04-24 17:45 | disposition home health service (06) ==
LOC: ER 23:31 → ERHOLD 23:32 → MEDS 23:32 → ERHOLD 23:32 → MEDS 04-22 10:57
PROVIDERS: Emergency Medicine; Internal Medicine; ADMIT Internal Medicine
DX: G93.40 Encephalopathy, unspecified (principal); N39.0 Urinary tract infection, site not specified; B96.20 Unspecified Escherichia coli [E. coli] as the cause of diseases classified elsewhere; Z16.12 Extended spectrum beta lactamase (ESBL) resistance; K59.00 Constipation, unspecified; R13.10 Dysphagia, unspecified; M84.671 Pathological fracture in other disease, right ankle; M84.68XD Pathological fracture in other disease, other site, subsequent encounter for fracture with routine healing; M84.6 Pathological fracture in other disease; C90.00 Multiple myeloma not having achieved remission; C79.51 Secondary malignant neoplasm of bone; L30.8 Other specified dermatitis; J98.4 Other disorders of lung; I10 Essential (primary) hypertension; Z87.891 Personal history of nicotine dependence; Z79.01 Long term (current) use of anticoagulants; Z79.899 Other long term (current) drug therapy; Z88.8 Allergy status to other drugs, medicaments and biological substances
CPT/HCPCS: 36415; 51701; 70450; 71045; 80048; 80053; 81001; 83605; 83880; 84145; 84439; 84443; 85025; 87040; 87077; 87086; 87186; 87637; 93005; 93010; 96365; 96372; 96374; 96376; 97112; 97162; 97165; 97530; 97535; 99285; A9270; G0378; J0696; J1650; J2185; J7030

== ENCOUNTER 2025-04-25 02:07 | Day surgery (SDC) | payer OTHER ==
[~2025-04-25 02:07] MED LIST changes: +ACYCLOVIR400 MG PO; +ASPI325 PO; +DEXA4 PO; +ERTAPENEM1 G1 IV; +Ertapenem Sodium 1,000 MG in NS 50 ML IV SCH; +HYDROCODONE-AC1 EA19 PO; +MONT10T PO; +Vitamin D1000 UNI1 PO
[2025-04-25 14:00] VITALS: BP 96/58
[2025-04-25] MEDS ORDERED: PRAV20 PO (16:38)
[2025-04-25] MEDS ORDERED: FENO145 PO (16:38)
[2025-04-25] MEDS ORDERED: DIVA125 PO (16:39)
== END 2025-04-25 14:32 | disposition home or self-care (01) ==
LOC: ATC 02:07
DX: N39.0 Urinary tract infection, site not specified (principal); I10 Essential (primary) hypertension; I48.91 Unspecified atrial fibrillation; C90.00 Multiple myeloma not having achieved remission; Z79.01 Long term (current) use of anticoagulants; Z79.899 Other long term (current) drug therapy; Z88.8 Allergy status to other drugs, medicaments and biological substances
CPT/HCPCS: 96365; J1335

== ENCOUNTER 2025-04-26 01:37 | Day surgery (SDC) | payer OTHER ==
[~2025-04-26 01:37] MED LIST changes: +DIVA125 PO; +FENO145 PO; +PRAV20 PO
[2025-04-26 13:37] VITALS: BP 80/50
[2025-05-01] MEDS ORDERED: VITAMIN D325 MC3 PO (07:54)
== END 2025-04-26 14:12 | disposition home or self-care (01) ==
LOC: ATC 01:37
DX: N39.0 Urinary tract infection, site not specified (principal); I10 Essential (primary) hypertension; I48.91 Unspecified atrial fibrillation; C90.00 Multiple myeloma not having achieved remission; Z79.01 Long term (current) use of anticoagulants; Z79.899 Other long term (current) drug therapy; Z88.8 Allergy status to other drugs, medicaments and biological substances
CPT/HCPCS: 96365; J1335

== ENCOUNTER 2025-04-27 02:05 | Day surgery (SDC) | payer OTHER ==
[2025-04-27 13:36] VITALS: BP 102/54
[2025-05-01] MEDS ORDERED: VITAMIN D325 MC3 PO (07:54)
[2025-05-02] MEDS ORDERED: FURO20 PO (12:49)
== END 2025-04-27 13:48 | disposition home or self-care (01) ==
LOC: ATC 02:05
DX: N39.0 Urinary tract infection, site not specified (principal); B96.89 Other specified bacterial agents as the cause of diseases classified elsewhere; Z16.12 Extended spectrum beta lactamase (ESBL) resistance; I10 Essential (primary) hypertension; I48.91 Unspecified atrial fibrillation; Z79.01 Long term (current) use of anticoagulants; Z79.899 Other long term (current) drug therapy; Z88.8 Allergy status to other drugs, medicaments and biological substances
CPT/HCPCS: 96365; J1335

== ENCOUNTER 2025-04-28 04:13 | Day surgery (SDC) | payer OTHER ==
[2025-04-28 13:37] VITALS: BP 99/62
== END 2025-04-28 13:52 | disposition home or self-care (01) ==
LOC: ATC 04:13
DX: N39.0 Urinary tract infection, site not specified (principal); E86.0 Dehydration; I10 Essential (primary) hypertension; I48.91 Unspecified atrial fibrillation; C90.00 Multiple myeloma not having achieved remission; Z79.01 Long term (current) use of anticoagulants; Z79.899 Other long term (current) drug therapy; Z88.8 Allergy status to other drugs, medicaments and biological substances
CPT/HCPCS: 96365; J1335

== ENCOUNTER 2025-04-30 22:08 | Inpatient (IN) | payer OTHER ==
[~2025-04-30] VITALS: Ht 170.2 cm; Wt 76.3 kg
[~2025-04-30 22:08] MED LIST changes: -Ertapenem Sodium 1,000 MG in NS 50 ML IV SCH
[2025-04-30 22:25] LABS: BASOPHILS ABSOLUTE AUTO 0.01 K/mm3 (0.00-0.23); BASOPHILS PERCENT AUTO 0 % (0-2); EOSINOPHILS ABSOLUTE AUTO 0.00 K/mm3 (0.00-0.68); EOSINOPHILS PERCENT AUTO 0 % (0-6); Hematocrit 34.0 % (33.0-51.0); Hemoglobin 11.4 g/dL (11.5-16.0); IMMATURE GRAN ABSOLUTE AUTO 0.01 K/mm3 (0.00-0.10); IMMATURE GRAN PERCENT AUTO 0 % (0-1); LYMPHOCYTES ABSOLUTE AUTO 0.11 K/mm3 (0.84-5.20); LYMPHOCYTES PERCENT AUTO 3 % (21-46); MONOCYTES ABSOLUTE AUTO 0.03 K/mm3 (0.16-1.47); MONOCYTES PERCENT AUTO 1 % (4-13); Mean Corpuscular HGB Conc 33.5 g/dL (31.5-36.5); Mean Corpuscular Volume 104 fL (80-100); NEUTROPHILS ABSOLUTE AUTO 3.95 K/mm3 (1.96-9.15); NEUTROPHILS PERCENT AUTO 96 % (41-73); NRBC ABSOLUTE 0.00 K/mm3 (0.00-0.02); NRBC Auto 0.0 /100 WBC (0.0-0.2); Platelet Count 234 K/mm3 (150-400); RDW Coefficient Variation 13.3 % (11.7-14.2); RDW Standard Deviation 51.0 fL (35.1-46.3)
[2025-04-30 23:08] LABS: Alanine Aminotransfer (ALT/SGP 14.0 U/L (12-78); Albumin, Blood 2.3 g/dL (3.4-5.0); Albumin/Globulin Ratio 0.5 (0.8-1.8); Anion Gap 13.0 mmol/L (3-11); Aspartate Aminotrans (AST/SGOT 33.0 U/L (12-37); Bilirubin, Total 0.4 mg/dL (0.1-1.0); Blood Urea Nitrogen 24.0 mg/dL (8-24); CO2, Blood 20.0 mmol/L (21-32); Calcium, Blood 8.2 mg/dL (8.5-10.1); Chloride, Blood 109.0 mmol/L (98-108); Creatinine, Blood 0.84 mg/dL (0.40-1.00); Ethanol (Alcohol), Blood, Med 3.0 mg/dL; Globulin, Blood 4.8 g/dL (2.2-4.0); Glucose, Blood 217.0 mg/dL (70-99); Potassium, Blood 3.6 mmol/L (3.5-5.5); Sodium, Blood 138.0 mmol/L (136-145); Total Protein, Blood 7.1 g/dL (6.4-8.2)
[2025-05-01] MEDS ORDERED: Diazepam 5 MG / ML 2ML SYR IV PRN (02:30)
[2025-05-01] MEDS ORDERED: Ondansetron HCl 2 MG / ML 2ML Vial IV PRN (02:35)
[2025-05-01 04:56] VITALS: BP 134/75
[2025-05-01] MEDS ORDERED: ZOLEDRONIC ACID414 (05:15)
[2025-05-01] MEDS ORDERED: Velcade3.5 MG (05:16)
[2025-05-01] MEDS ORDERED: DARZALEX100 MG/51 (05:16)
[2025-05-01 05:41] LABS: pH Blood Venous 7.48 (7.34-7.37)
[2025-05-01 05:42] LABS: BASOPHILS ABSOLUTE AUTO 0.01 K/mm3 (0.00-0.23); BASOPHILS PERCENT AUTO 0 % (0-2); EOSINOPHILS ABSOLUTE AUTO 0.00 K/mm3 (0.00-0.68); EOSINOPHILS PERCENT AUTO 0 % (0-6); Hematocrit 32.6 % (33.0-51.0); Hemoglobin 11.2 g/dL (11.5-16.0); IMMATURE GRAN ABSOLUTE AUTO 0.01 K/mm3 (0.00-0.10); IMMATURE GRAN PERCENT AUTO 0 % (0-1); LYMPHOCYTES ABSOLUTE AUTO 0.29 K/mm3 (0.84-5.20); LYMPHOCYTES PERCENT AUTO 5 % (21-46); MONOCYTES ABSOLUTE AUTO 0.13 K/mm3 (0.16-1.47); MONOCYTES PERCENT AUTO 2 % (4-13); Mean Corpuscular HGB Conc 34.4 g/dL (31.5-36.5); Mean Corpuscular Volume 100 fL (80-100); NEUTROPHILS ABSOLUTE AUTO 5.82 K/mm3 (1.96-9.15); NEUTROPHILS PERCENT AUTO 93 % (41-73); NRBC ABSOLUTE 0.00 K/mm3 (0.00-0.02); NRBC Auto 0.0 /100 WBC (0.0-0.2); Platelet Count 175 K/mm3 (150-400); RDW Coefficient Variation 13.1 % (11.7-14.2); RDW Standard Deviation 47.6 fL (35.1-46.3)
[2025-05-01 06:11] LABS: Alanine Aminotransfer (ALT/SGP 19.0 U/L (12-78); Albumin, Blood 2.3 g/dL (3.4-5.0); Albumin/Globulin Ratio 0.5 (0.8-1.8); Anion Gap 8.0 mmol/L (3-11); Aspartate Aminotrans (AST/SGOT 36.0 U/L (12-37); Bilirubin, Total 0.4 mg/dL (0.1-1.0); Blood Urea Nitrogen 26.0 mg/dL (8-24); CO2, Blood 22.0 mmol/L (21-32); Calcium, Blood 8.3 mg/dL (8.5-10.1); Chloride, Blood 111.0 mmol/L (98-108); Creatinine, Blood 0.75 mg/dL (0.40-1.00); Globulin, Blood 4.7 g/dL (2.2-4.0); Glucose, Blood 155.0 mg/dL (70-99); Magnesium, Blood 1.7 mg/dL (1.6-2.4); Potassium, Blood 3.9 mmol/L (3.5-5.5); Sodium, Blood 137.0 mmol/L (136-145); Total Protein, Blood 7.0 g/dL (6.4-8.2)
--- NOTE | 2025-05-01 06:48 | NUR ---
SHIFT SUMMARY: PT ARRIVED ON UNIT AT 0445. PT A&OX2 DISORIENTED TO DATE AND CURRENT SITUATION. HAS A HX OF CVA. FAMILY REPORTS RIGHT SIDED WEAKNESS. CERVICAL COLLAR IN PLACE. HOB ELEVATED. SEIZURE PRECAUTIONS IN PLACE. VSS ON 2L NC. WICKING SYSTEM IN PLACE. SKIN BREAKDOWN ON LABIA, INNER THIGHS, AND COCCYX. PT HAS CAST ON RIGHT FOOT FROM ANKLE SURGERY THAT WAS COMPLETED IN MARCH 2025. BED IS LOW AND LOCKED. CALL LIGHT WITHIN REACH. CONTINUE WITH CURRENT PLAN OF CARE.
[2025-05-01] MEDS ORDERED: VITAMIN D325 MC3 PO ×2 (07:54)
[2025-05-01] MEDS ORDERED: ASPI325 PO (07:54)
[2025-05-01 08:15] VITALS: BP 120/75
[2025-05-01] MEDS ORDERED: Magnesium Sulf 2 GM/Water 50ML 50 ML IV ONE (08:45)
[2025-05-01] MEDS ORDERED: Nystatin 100,000 Unit/GM Ointment 15 GM TOP SCH (09:00)
[2025-05-01 11:28] VITALS: BP 91/65
[2025-05-01 15:18] LABS: Source, Urine Clean Catch
[2025-05-01 15:23] LABS: Bilirubin, Urine Neg (Neg); Color, Urine Yellow (P-Yellow); Glucose Qualitative, Urine Neg (Neg); Ketones, Urine Neg (Neg); Leukocyte Esterase, Urine Neg (Neg); Protein, Urine 1+ (Neg); Specific Gravity, Urine 1.020 (1.003-1.022); Urobilinogen, Urine 1+ (Normal)
[2025-05-01 16:14] VITALS: BP 96/64
--- NOTE | 2025-05-01 18:02 | NUR ---
SHIFT SUMMARY; ASSUMED CARE AT 0700. A/OX2, BASELINE FOR PT PER SPOUSE. HX OF CVA WITH RIGHT SIDE WEAKNESS. RIGHT LOWER LEG CURENTLY IN CAST FROM PREVIOUS FALL. CAP REFILL <3 TO RIGHT TOES. MEPILIX PLACED ON LEFT HEEL AND PILLOW UNDER LEG FOR PREVENTATIVE. ASSISTED AND ENCOURAGED REPOSITIONING. C-COLLAR IN PLACE FROM FALL 5 WEEKS AGO. VSS, NO SEIZURE ACTIVITY DURING SHIFT. PURWICK AND ATTENDS IN PLACE. SPOUSE AT BEDSIDE MOST OF SHIFT. PLEASANT AND COOPERATIVE WITH CARE.
[2025-05-01] MEDS ORDERED: Divalproex Sodium 250 MG TABCR PO SCH (20:00)
[2025-05-01 20:36] VITALS: BP 117/72
[2025-05-02 00:09] VITALS: BP 97/62
[2025-05-02 01:09] LABS: U Amphetamine Screen Not Detected; U Barbituate Screen Not Detected; U Benzodiazapine Screen Not Detected; U Buprenorphine Screen Not Detected; U Cannabinoids Screen Not Detected; U Cocaine Screen Not Detected; U Methadone Screen Not Detected; U Methamphetamine Screen Not Detected; U Opiates Screen Not Detected; U Oxycodone Screen Not Detected; U Phencyclidine Screen Not Detected
[2025-05-02 03:22] VITALS: BP 103/64
[2025-05-02 04:39] LABS: BASOPHILS ABSOLUTE AUTO 0.00 K/mm3 (0.00-0.23); BASOPHILS PERCENT AUTO 0 % (0-2); EOSINOPHILS ABSOLUTE AUTO 0.07 K/mm3 (0.00-0.68); EOSINOPHILS PERCENT AUTO 1 % (0-6); Hematocrit 32.2 % (33.0-51.0); Hemoglobin 10.8 g/dL (11.5-16.0); IMMATURE GRAN ABSOLUTE AUTO 0.03 K/mm3 (0.00-0.10); IMMATURE GRAN PERCENT AUTO 1 % (0-1); LYMPHOCYTES ABSOLUTE AUTO 1.19 K/mm3 (0.84-5.20); LYMPHOCYTES PERCENT AUTO 19 % (21-46); MONOCYTES ABSOLUTE AUTO 0.26 K/mm3 (0.16-1.47); MONOCYTES PERCENT AUTO 4 % (4-13); Mean Corpuscular HGB Conc 33.5 g/dL (31.5-36.5); Mean Corpuscular Volume 103 fL (80-100); NEUTROPHILS ABSOLUTE AUTO 4.58 K/mm3 (1.96-9.15); NEUTROPHILS PERCENT AUTO 75 % (41-73); NRBC ABSOLUTE 0.00 K/mm3 (0.00-0.02); NRBC Auto 0.0 /100 WBC (0.0-0.2); Platelet Count 155 K/mm3 (150-400); RDW Coefficient Variation 13.2 % (11.7-14.2); RDW Standard Deviation 49.9 fL (35.1-46.3)
[2025-05-02 05:05] LABS: Anion Gap 8.0 mmol/L (3-11); Blood Urea Nitrogen 26.0 mg/dL (8-24); CO2, Blood 24.0 mmol/L (21-32); Calcium, Blood 8.2 mg/dL (8.5-10.1); Chloride, Blood 110.0 mmol/L (98-108); Creatinine, Blood 0.76 mg/dL (0.40-1.00); Glucose, Blood 96.0 mg/dL (70-99); Potassium, Blood 3.5 mmol/L (3.5-5.5); Sodium, Blood 138.0 mmol/L (136-145)
--- NOTE | 2025-05-02 05:43 | NUR ---
SHIFT SUMMARY: PT A&OX2 DISORIENTED TO DATE AND CURRENT SITUATION. HAS A HX OF CVA. FAMILY REPORTS RIGHT SIDED WEAKNESS IS BASELINE. CERVICAL COLLAR IN PLACE D/T PREVIOUS FALL. HOB ELEVATED. SEIZURE PRECAUTIONS IN PLACE. VSS ON 2L NC. TRIED TO TITRATE TO RA BUT PT BEGAN TO DESAT INTO 70S WHILE SLEEPING. REAPPLIED 2L NC. WICKING SYSTEM IN PLACE. Q2 TURNS. NYSTATIN APPLIED TO COCCYX AND INNER THIGHS. PT HAS CAST ON RIGHT FOOT FROM PREVIOUS ANKLE SURGERY. CAP REFILL <3 SECONDS ON RIGHT TOES. LLE EDEMA. PREVENTATIVE MEPILEX APPLIED TO LEFT HEEL AND LLE ELEVATED OFF BED. SCDS APPLIED. BED IS LOW AND LOCKED. CALL LIGHT WITHIN REACH. CONTINUE WITH CURRENT PLAN OF CARE.
[2025-05-02 08:01] VITALS: BP 121/75
[2025-05-02 12:41] VITALS: BP 136/83
[2025-05-02] MEDS ORDERED: FURO20 PO ×2 (12:49)
--- NOTE | 2025-05-02 14:12 | NUR ---
DISCHARGE NOTE PT WAS ALERT AND ORIENTED X 2-3, DIFFICULTY FORMULATING WORDS- PROVIDERS AWARE. FAMILY STATED PT WAS AT HER BASELINE. PT IS A LIFT ASSIST FOR TRANSFERS, WHICH FAMILY ALSO VERIFIED BEING HER BASELINE. C COLLAR IN PLACE. PT WAS ON TELE W SR 60s-70s AND STABLE BLOOD PRESSURES. PT WAS ON 2L O2 NC THIS AM AND TITRATED DOWN TO RM AIR WHILE AWAKE. SHE MAINTANED SATS OVER 95 DURING THAT TIME. STATED THAT HE WILL BE MONITORING HER O2 SATS AT NIGHT AND HAS RECIEVED 02 MONITOR FROM PCP. CHEST X RAY AND BNP TAKEN, DR CLARK AWARE. PT AND WERE ADAMANT ABOUT PTs DISCHARGE TODAY. PT DISCHARGED IN WHEELCHAIR WITH TRANSPORT STAFF. W/ PT, BELONGINGS AND DISCHARGE INFORMATION IN POSESSION. [facility]CHARGE INFO [facility] WITH [facility]. QUESTIONS ANSWERED, AND MEDICATIONS FAXED TO [facility].
== END 2025-05-02 14:09 | disposition home health service (06) | DRG 100 ==
LOC: ER 22:08 → PCU 22:09
PROVIDERS: Emergency Medicine; ADMIT Student in an Organized Health Care Education/Training Program
DX: G40.909 Epilepsy, unspecified, not intractable, without status epilepticus (principal); J96.01 Acute respiratory failure with hypoxia; B37.49 Other urogenital candidiasis; C90.00 Multiple myeloma not having achieved remission; I48.20 Chronic atrial fibrillation, unspecified; I69.351 Hemiplegia and hemiparesis following cerebral infarction affecting right dominant side; I69.320 Aphasia following cerebral infarction; M84.48XD Pathological fracture, other site, subsequent encounter for fracture with routine healing; E87.70 Fluid overload, unspecified; I10 Essential (primary) hypertension; D63.0 Anemia in neoplastic disease; G47.30 Sleep apnea, unspecified; Z96.652 Presence of left artificial knee joint; Z88.8 Allergy status to other drugs, medicaments and biological substances; Z87.891 Personal history of nicotine dependence; Z79.01 Long term (current) use of anticoagulants
CPT/HCPCS: 36415; 70450; 71045; 80048; 80053; 80164; 80320; 82803; 82947; 83605; 83735; 83880; 85025; 92610; 93005; 93010; 94760; 96361; 96374; 97110; 97162; 97165; 97530; 97535; 99285-25; A9270; G0378; J3475; J7120

== ENCOUNTER → 2025-05-08 | Outpatient (CLI) | payer OTHER ==
[~2025-05-08] MED LIST changes: +DARZALEX100 MG/51; +FURO20 PO; +VITAMIN D325 MC3 PO; +Velcade3.5 MG; +ZOLEDRONIC ACID414
== END | disposition home or self-care (01) ==
LOC: LAB SHORT 11:50 → LAB 11:50
PROVIDERS: Hospitalist
DX: R56.9 Unspecified convulsions (principal)
CPT/HCPCS: 80164

== ENCOUNTER → 2025-05-28 | Outpatient (CLI) | payer OTHER ==
[2025-05-28 16:22] LABS: BASOPHILS ABSOLUTE AUTO 0.01 K/mm3 (0.00-0.23); BASOPHILS PERCENT AUTO 0 % (0-2); EOSINOPHILS ABSOLUTE AUTO 0.04 K/mm3 (0.00-0.68); EOSINOPHILS PERCENT AUTO 1 % (0-6); Hematocrit 30.5 % (33.0-51.0); Hemoglobin 10.7 g/dL (11.5-16.0); IMMATURE GRAN ABSOLUTE AUTO 0.06 K/mm3 (0.00-0.10); IMMATURE GRAN PERCENT AUTO 2 % (0-1); LYMPHOCYTES ABSOLUTE AUTO 0.42 K/mm3 (0.84-5.20); LYMPHOCYTES PERCENT AUTO 11 % (21-46); MONOCYTES ABSOLUTE AUTO 1.51 K/mm3 (0.16-1.47); MONOCYTES PERCENT AUTO 40 % (4-13); Mean Corpuscular HGB Conc 35.1 g/dL (31.5-36.5); Mean Corpuscular Volume 99 fL (80-100); NEUTROPHILS ABSOLUTE AUTO 1.73 K/mm3 (1.96-9.15); NEUTROPHILS PERCENT AUTO 46 % (41-73); NRBC ABSOLUTE 0.00 K/mm3 (0.00-0.02); NRBC Auto 0.0 /100 WBC (0.0-0.2); Platelet Count 128 K/mm3 (150-400); RDW Coefficient Variation 13.2 % (11.7-14.2); RDW Standard Deviation 46.5 fL (35.1-46.3)
[2025-05-31 12:22] LABS: ALPHA 1 GLOBULIN 0.45 g/dL (0.19-0.46); ALPHA 2 GLOBULIN 0.85 g/dL (0.48-1.05); BETA GLOBULIN 0.85 g/dL (0.48-1.10); GAMMA 0.51 g/dL (0.62-1.51); IMMUNOFIXATION IFE Done; KAPPA QNT FREE LIGHT CHAINS 11.96 mg/L (3.30-19.40); KAPPA/LAMBDA FLC RATIO 0.91 (0.26-1.65); LAMBDA QNT FREE LIGHT CHAINS 13.21 mg/L (5.71-26.30); MONOCLONAL PROTEIN 0.89 g/dL (<=0.00); TOTAL PROTEIN, SERUM 5.3 g/dL (6.3-8.2)
== END ==
LOC: LAB SHORT 14:25 → LAB 14:25
PROVIDERS: Internal Medicine Hematology & Oncology
DX: C90.00 Multiple myeloma not having achieved remission (principal)
CPT/HCPCS: 82784; 83521; 84155; 84165; 85025; 86334

== ENCOUNTER 2025-06-07 12:15 | Inpatient (IN) | payer OTHER ==
[~2025-06-07] VITALS: Ht 172.7 cm; Wt 64.8 kg
[~2025-06-07 12:15] MED LIST changes: +DEPAKOTE ER500 M1 PO; -DIVA125 PO; -FENO145 PO; -PRAV20 PO
[2025-06-07 13:19] LABS: Source, Urine Straight Cath
[2025-06-07 13:31] LABS: Bilirubin, Urine Neg (Neg); Color, Urine Yellow (P-Yellow); Glucose Qualitative, Urine Neg (Neg); Ketones, Urine Neg (Neg); Leukocyte Esterase, Urine Neg (Neg); Protein, Urine 1+ (Neg); Specific Gravity, Urine 1.015 (1.003-1.022); Urobilinogen, Urine NORM (Normal)
[2025-06-07 13:39] LABS: Red Blood Cells, Urine 0-2 /hpf (0-2); White Blood Cells, Urine 0-2 /hpf (0-5)
[2025-06-07 13:48] LABS: U Amphetamine Screen Not Detected; U Barbiturate Screen Not Detected; U Benzodiazapine Screen Not Detected; U Buprenorphine Screen Not Detected; U Cannabinoids Screen Not Detected; U Cocaine Screen Not Detected; U Methadone Screen Not Detected; U Methamphetamine Screen Not Detected; U Opiates Screen Not Detected; U Oxycodone Screen Not Detected; U Phencyclidine Screen Not Detected
[2025-06-07] MEDS ORDERED: NS 1,000 ML IV SCH ×4 (14:00→20:25)
[2025-06-07 15:32] LABS: BASOPHILS ABSOLUTE AUTO 0.00 K/mm3 (0.00-0.23); BASOPHILS PERCENT AUTO 0 % (0-2); EOSINOPHILS ABSOLUTE AUTO 0.00 K/mm3 (0.00-0.68); EOSINOPHILS PERCENT AUTO 0 % (0-6); Hematocrit 29.3 % (33.0-51.0); Hemoglobin 9.9 g/dL (11.5-16.0); IMMATURE GRAN ABSOLUTE AUTO 0.03 K/mm3 (0.00-0.10); IMMATURE GRAN PERCENT AUTO 2 % (0-1); LYMPHOCYTES ABSOLUTE AUTO 0.19 K/mm3 (0.84-5.20); LYMPHOCYTES PERCENT AUTO 11 % (21-46); MONOCYTES ABSOLUTE AUTO 0.82 K/mm3 (0.16-1.47); MONOCYTES PERCENT AUTO 48 % (4-13); Mean Corpuscular HGB Conc 33.8 g/dL (31.5-36.5); Mean Corpuscular Volume 102 fL (80-100); NEUTROPHILS ABSOLUTE AUTO 0.67 K/mm3 (1.96-9.15); NEUTROPHILS PERCENT AUTO 39 % (41-73); NRBC ABSOLUTE 0.02 K/mm3 (0.00-0.02); NRBC Auto 1.2 /100 WBC (0.0-0.2); RDW Coefficient Variation 14.9 % (11.7-14.2); RDW Standard Deviation 55.4 fL (35.1-46.3)
[2025-06-07 15:47] LABS: Alanine Aminotransfer (ALT/SGP 12.0 U/L (12-78); Albumin, Blood 2.1 g/dL (3.4-5.0); Albumin/Globulin Ratio 0.8 (0.8-1.8); Anion Gap 6.0 mmol/L (3-11); Aspartate Aminotrans (AST/SGOT 25.0 U/L (12-37); Bilirubin, Total 0.3 mg/dL (0.1-1.0); Blood Urea Nitrogen 25.0 mg/dL (8-24); CO2, Blood 36.0 mmol/L (21-32); Calcium, Blood 8.7 mg/dL (8.5-10.1); Chloride, Blood 97.0 mmol/L (98-108); Creatinine, Blood 0.88 mg/dL (0.40-1.00); Globulin, Blood 2.8 g/dL (2.2-4.0); Glucose, Blood 81.0 mg/dL (70-99); Potassium, Blood 3.7 mmol/L (3.5-5.5); Sodium, Blood 135.0 mmol/L (136-145); Total Protein, Blood 4.9 g/dL (6.4-8.2)
[2025-06-07 15:53] LABS: Platelet Count 42 K/mm3 (150-400)
[2025-06-07 15:59] LABS: Influenza A, PCR NEGATIVE (NEGATIVE); Influenza B, PCR NEGATIVE (NEGATIVE); Resp Syncytial Virus, PCR NEGATIVE (NEGATIVE); SARS-Cov-2 (COVID-19) PCR, MMC NEGATIVE (NEGATIVE)
[2025-06-07] MEDS ORDERED: LENALIDOMIDE25 MG PO (16:32)
[2025-06-07] MEDS ORDERED: Piperacillin/Tazobactam Sod 2.25 GM in NS 50 ML IV ONE (17:05)
[2025-06-07] MEDS ORDERED: Ondansetron HCl 2 MG / ML 2ML Vial IV PRN (20:25)
[2025-06-07] MEDS ORDERED: FLU VACC TS2025(65UP)/MF59C/PF 45 MCG/0.5 ML SYRINGE IM SCH (20:25)
[2025-06-07] MEDS ORDERED: ACYCLOVIR400 MG PO (20:48)
[2025-06-07] MEDS ORDERED: Lactobacil 2-S.Thermo-Bifido 1 1 Cap PO SCH (21:00)
[2025-06-07] MEDS ORDERED: ACYC400 (21:11)
[2025-06-07 21:30] VITALS: BP 127/53
[2025-06-07] MEDS ORDERED: Divalproex Sodium 250 MG TABCR PO SCH (21:30)
[2025-06-07 21:38] LABS: pH Blood Venous 7.42 (7.34-7.37)
[2025-06-08] VITALS (26 sets, daily range): BP systolic 83–125; BP diastolic 40–76
[2025-06-08] MEDS ORDERED: Piperacillin/Tazobactam Sod 3.375 GM in NS 100 ML IV SCH
--- NOTE | 2025-06-08 05:53 | NUR ---
PT MONITORED DURING THE SHIFT.PT ADMITTED WITH C-COLLAR AND RIGHT LOWER EXTREMITY BOOT.FAMILY TOOK THE BOOT HOME WITH THEM.PT WAS LETHARGIC AND CONFUSED WHEN SHE CAME TO THE FLOOR BUT BECAME MORE RESPONSIVE AND ALERT THE NIGHT PROGRESSED.PT IS MORE AWAKE AT THIS TIME,REMAINS CONFUSED BUT ABLE TO ANSWER SOME QUESTIONS APPROPRIATELY.PT DENIES PAIN,DENIES SOB,DENIES NEEDS AT THIS TIME.CALL LIGHT AND PT'S ITEMS WITHIN REACH.PHLEBOTOMISTS NOT ABLE TO DRAW LABS THIS MORNING.ICU CHARGE NURSE ATTEMPTED TO USE ULTRASOUND MACHINE TO INSERT PIV BUT SHE WAS UNSUCCESSFUL.ICU CHARGE NURSE SAID THAT THE PT NEEDS A CENTRAL LINE.PT HAD 100ML URINE OUT,BLADDER SCANNER REVEALED 136ML. MONITORING ONGOING PER CAREPLAN.
[2025-06-08 08:31] LABS: Hematocrit 29.9 % (33.0-51.0); Hemoglobin 10.0 g/dL (11.5-16.0); Mean Corpuscular HGB Conc 33.4 g/dL (31.5-36.5); Mean Corpuscular Volume 102 fL (80-100); NRBC ABSOLUTE 0.02 K/mm3 (0.00-0.02); NRBC Auto 0.9 /100 WBC (0.0-0.2); RDW Coefficient Variation 15.1 % (11.7-14.2); RDW Standard Deviation 55.6 fL (35.1-46.3)
[2025-06-08 08:42] LABS: Platelet Count 35 K/mm3 (150-400)
[2025-06-08 08:46] LABS: Anion Gap 6.0 mmol/L (3-11); Blood Urea Nitrogen 18.0 mg/dL (8-24); CO2, Blood 33.0 mmol/L (21-32); Calcium, Blood 8.2 mg/dL (8.5-10.1); Chloride, Blood 102.0 mmol/L (98-108); Creatinine, Blood 0.63 mg/dL (0.40-1.00); Glucose, Blood 104.0 mg/dL (70-99); Potassium, Blood 3.9 mmol/L (3.5-5.5); Sodium, Blood 137.0 mmol/L (136-145)
--- NOTE | 2025-06-08 09:00 | NUR ---
AM NOTE: PATIENT WAKES TO VOICE OR TOUCH. OPEN EYES AND SAYS "HI". TRACKING THIS RN WITH EYES AND ABLE TO FOLLOW SIMPLE COMMANDS. PATIENT FALLS ASLEEP QUICKLY. PERRLA. MINIMAL TALKING, SAYING "YES, NO AND HI". ED AT BEDSIDE THIS AM AND UPDATED ON PLAN OF CARE. ON 2L NASAL CANNULA SATING MID 90'S. EVEN AND UNLABORED RESPIRATIONS. SNORE NOTED WHEN SLEEPING. LUNGS SOUNDS CLEAR AND DIM. SPUTUM SAMPLE NEEDING TO BE COLLECTED. TELE SHOWING SR WITH HR 60-70'S. EDEMA NOTED TO ALL EXTREMITIES WORSE ON LEFT ARM AND LEG. ED SAYS PATIENT STOPPED TAKING HOME LASIX IN APRIL DUE TO LOW BLOOD PRESSURE. IV SALINE INFUSING PER EMAR. NEW POWERGLIDE LINE PLACED AND LABS SENT OFF. BOWEL TONES PRESENT. APHASIA AND POSSIBLE DYSPHAGIA FROM PREVIOUS STROKE. 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 SPEECH THERAPY ORDERS IN PLACE. MEDS CRUSHED IN APPLESAUCE/YOGURT. PUREWICK IN PLACE WELL ATTENDS. MINIMAL URINE OUTPUT. NEW UA SAMPLE SENT VIA STRAIGHT CATH. EXCORTIATED COCCYX WITH STAGE 2 PRESSURE WOUND NOTED ON COCCYX AND STAGE 1 NOTED ON LEFT BUTTOCK. SEE CHART PHOTOS. DR. FELICIANO UPDATED ON WOUNDS AND SHOWN PHOTOS. PATIENT ALSO HAS REDNESS TO RIGHT GROIN AND RASH NOTED ON ABDOMIN, PHOTOS IN CHART. CCOLLAR IN PLACE, REMOVED WITH 2ND RN FOR SKIN CHECK. SMALL EXCORIATION TO RIGHT CLAVICLE, SEE CHART PHOTOS. MEPILEX PLACED UNDER CCOLLAR FOR PREVENTION. DR. FELICIANO TO BEDSIDE THIS RN AND PATIENT ED PRESENT FOR MD IRIZARRY.
[2025-06-08] MEDS ORDERED: Vancomycin (Pharmacy Consult) IV SCH (09:55)
[2025-06-08 10:34] LABS: Magnesium, Blood 1.9 mg/dL (1.6-2.4); Phosphorus, Blood 2.1 mg/dL (2.5-4.9); Thyroid Stimulating Hormone 5.35 uIU/mL (0.360-4.800)
[2025-06-08] MEDS ORDERED: Potassium Phosphate Dibasic 10 MM in Dextrose 5% 250 ML IV STA (10:45)
[2025-06-08 11:19] LABS: Source, Urine Straight Cath
[2025-06-08 11:23] LABS: Bilirubin, Urine Neg (Neg); Glucose Qualitative, Urine Neg (Neg); Ketones, Urine Neg (Neg); Leukocyte Esterase, Urine Neg (Neg); Protein, Urine Neg (Neg); Specific Gravity, Urine 1.020 (1.003-1.022); Urobilinogen, Urine NORM (Normal)
[2025-06-08 11:31] LABS: Color, Urine Yellow (P-Yellow)
[2025-06-08 12:02] LABS: Influenza A/2009-H1 Not Detected (NOT DETECT); SARS-Cov-2 (COVID-19), BioFire Not Detected (NOT DETECT)
--- NOTE | 2025-06-08 12:56 | NUR ---
AFTERNOON VITALS SHOWING LOW BLOOD PRESSURE WITH MAP RANGING FROM 58-61. DR. FELICIANO PRESENT ON UNIT AND THIS RN UPDATED ON LOW BLOOD PRESSURE, EDEMA, AND MINIMAL URINE OUTPUT. PLAN FOR LR 500ML BOLUS FOLLOWED BY LR AT 100ML/HR. DISCONTINUED NS AT 75 ML/HR. BOLUS INFUSED AND DR. FELICIANO UPDATED ON BLOOD PRESSURE. DR. FELICIANO TO PLACE ORDERS.
[2025-06-08] MEDS ORDERED: ZINC OXIDE/PETROLATUM, YELLOW 1 APPLIC/71 GM PASTE TOP PRN (15:50)
[2025-06-08] MEDS ORDERED: Piperacillin/Tazobactam Sod 4.5 GM in NS 100 ML IV SCH (16:00)
--- NOTE | 2025-06-08 16:04 | NUR ---
BLOOD PRESSURE IMPROVING. DR. FELICIANO ON UNIT AND UPDATED. DR. FELICIANO TO ADJUST MIDODRINE ORDERS. BED WAFFLE MATTRESS PROVIDED. AND DAUGHTER SADIE AT BEDSIDE AND UPDATED. PALLIATIVE CARE ON UNIT AND UPATED, INTERESTING IN DISCUSSING ADVANCED DIRECTIVE. PATIENT REMAINS FULL CODE AT THIS TIME. BIG DATA ENGINEER BY TO ASSESS.
--- NOTE | 2025-06-08 18:16 | NUR ---
BLOOD PRESSURE READING 91/50(61). DR. FELICIANO UPDATED. DR. FELICIANO TO PLACE ORDERS.
--- NOTE | 2025-06-08 20:58 | NUR ---
SPOKE W/ DR. MUÑOZ. CONCERN FOR DEGREE TO WHICH FLUIDS ARE BEING INFUSED GIVEN VERY MINIMAL URINE OUTPUT THROUGHOUT DAY, INCREASING EDEMA PER FAMILY AND REPORT, SEEMINGLY MINIMAL IMPACT ON BLOOD PRESSURE WHICH HAS BEEN SOFT/BORDERLINE SINCE SHIFT ONSET. DISCUSSED CASE AND BACKGROUND W/ DR. MUÑOZ. AFTER DISCUSSION W/ DR. SEGUNDO, DR. MUÑOZ DIRECTED TO STOP LR FOR TIME BEING AND NOTIFY IF MAPS START TO TREND <60. FLUIDS STOPPED @ 2056. CONTINUING TO MONITOR.
[2025-06-08] MEDS ORDERED: Albumin (Human) 25gm/100ml 100 ML IV ONE (22:05)
--- NOTE | 2025-06-08 22:11 | NUR ---
SPOKE AGAIN W/ DR. MUÑOZ. NOTIFIED THAT MOST RECENT BP WAS 83/47 W/ MAP OF 58. DR. MUÑOZ ORDERED ALBUMIN AND 250 ML LR BOLUS. ORDERS INPUT. CONTINUING TO MONITOR.
--- NOTE | 2025-06-08 23:01 | NUR ---
spoke again w/ dr. pope. Updated on most recent blood pressure (91/40 W/MAP OF 57). albumin now running. Dr. Pope ordered an additional 250 ml LR bolus. also notified that pt has been more bradycardic this shift than shift prior after reviewing trend review on tele. continuing to monitor.
[2025-06-09] VITALS (90 sets, daily range): BP systolic 64–136; BP diastolic 32–106
--- NOTE | 2025-06-09 01:01 | NUR ---
SPOKE AGAIN W/ DR. MUÑOZ. NOTIFIED OF BP TREND AFTER COMPLETION OF ALBUMIN INFUSION. MAP REMAINS <=60. DR. MUÑOZ ORDERED PT TO BE MOVED TO ICU FOR LEVOPHED DRIP. ORDERS INPUT. ED CALLED TO BE MADE AWARE.
[2025-06-09 05:03] LABS: BASOPHILS ABSOLUTE AUTO 0.00 K/mm3 (0.00-0.23); BASOPHILS PERCENT AUTO 0 % (0-2); EOSINOPHILS ABSOLUTE AUTO 0.02 K/mm3 (0.00-0.68); EOSINOPHILS PERCENT AUTO 1 % (0-6); Hematocrit 23.9 % (33.0-51.0); Hemoglobin 8.0 g/dL (11.5-16.0); IMMATURE GRAN ABSOLUTE AUTO 0.02 K/mm3 (0.00-0.10); IMMATURE GRAN PERCENT AUTO 1 % (0-1); LYMPHOCYTES ABSOLUTE AUTO 0.26 K/mm3 (0.84-5.20); LYMPHOCYTES PERCENT AUTO 13 % (21-46); MONOCYTES ABSOLUTE AUTO 0.78 K/mm3 (0.16-1.47); MONOCYTES PERCENT AUTO 39 % (4-13); Mean Corpuscular HGB Conc 33.5 g/dL (31.5-36.5); Mean Corpuscular Volume 103 fL (80-100); NEUTROPHILS ABSOLUTE AUTO 0.90 K/mm3 (1.96-9.15); NEUTROPHILS PERCENT AUTO 46 % (41-73); NRBC ABSOLUTE 0.03 K/mm3 (0.00-0.02); NRBC Auto 1.5 /100 WBC (0.0-0.2); RDW Coefficient Variation 15.2 % (11.7-14.2); RDW Standard Deviation 56.5 fL (35.1-46.3)
[2025-06-09 05:08] LABS: Platelet Count 23 K/mm3 (150-400)
[2025-06-09 05:27] LABS: Alanine Aminotransfer (ALT/SGP 12.0 U/L (12-78); Albumin, Blood 2.1 g/dL (3.4-5.0); Albumin/Globulin Ratio 1.1 (0.8-1.8); Anion Gap 4.0 mmol/L (3-11); Aspartate Aminotrans (AST/SGOT 24.0 U/L (12-37); Bilirubin, Total 0.7 mg/dL (0.1-1.0); Blood Urea Nitrogen 12.0 mg/dL (8-24); CO2, Blood 33.0 mmol/L (21-32); Calcium, Blood 8.2 mg/dL (8.5-10.1); Chloride, Blood 104.0 mmol/L (98-108); Creatinine, Blood 0.61 mg/dL (0.40-1.00); Globulin, Blood 1.9 g/dL (2.2-4.0); Glucose, Blood 73.0 mg/dL (70-99); Potassium, Blood 3.2 mmol/L (3.5-5.5); Sodium, Blood 138.0 mmol/L (136-145); Total Protein, Blood 4.0 g/dL (6.4-8.2)
--- NOTE | 2025-06-09 06:37 | NUR ---
SHIFT SUMMARY RECEIVED PT FROM 3RD FLOOR JUST BEFORE 0100. MONITORS PLACED. PT AROUSABLE TO VERBAL STIMULI BUT UNABLE TO SPEAK MORE THAN A WORD OR 2 DUE TO DYSPHAGIA HISTORY FROM PREVIOUS CVA. BP SOFT WITH NON-WORKING IV'S. DR SEGUNDO PLACED RIGHT FEMORAL CENTRAL LINE TO ALLOW FOR LEVOPHED GTT WHICH WAS INITIATED AFTER LINE PLACEMENT AT 2MCG. BP HAS BEEN STABLE SINCE INITIATION, RIGHT FEMORAL LINE SITE WITH SOME OOZING, DR SEGUNDO AWARE. NO FURTHER TITRATION NECESSARY SO FAR. AFEBRILE. LOW K+ OF 3.2 AND PLATELETS [address] SEGUNDO. ORDER RECEIVED TO REPLACE K+ IV WHICH IS NOW INFUSING. WILL UPDATE DAY RN WITH ALL OUTSTANDING ISSUES AND PROBLEMS TO DATE.
[2025-06-09] MEDS ORDERED: Cholecalciferol 1000 Unit Tablet (=25MCG) PO SCH (09:00)
--- NOTE | 2025-06-09 14:13 | NUR ---
REASSESSMENT PT SPENT THE MORNING RESTING IN BED. SHE WAKES SPONTANEOUSLY, ANSWERS SOME YES/NO QUESTIONS, MINIMAL VERBAL RESPONSES. SHE ATE A LITTLE BREAKFAST AND WAS ABLE TO TAKE HER PILLS. MAP WAS ABOVE 65 WHILE SHE WAS AWAKE AND SPO2 98% ON 2L SO BOTH THOSE WERE TITRATED OFF. PT THEN DROPPER HER SPO2 TO THE 80S SO IT WAS TURNED BACK ON TO 1L/NC. HER MAP DROPPED BELOW 65 ONCE SHE WAS SLEEPING SO LEVOPHED WAS TURNED BACK ON WELL. LUNGS ARE CLEAR, SR. VERY EDEMATOUS, LEGS ELEVATED ON PILLOWS. PUREWICK IN PLACE. BLADDER SCAN DONE PT HAD NO OUTPUT THIS MORNING AND SCAN SHOWED ABOUT 300ML. PT NOW HAS ABOUT 100ML IN THE CANISTER, YELLOW. PT'S AND VARIOUS CHILDREN HAVE BEEN BY AND UPDATED.
--- NOTE | 2025-06-09 17:49 | NUR ---
SHIFT SUMMARY PT HAS REMAINED ALERT, ANSWERING SIMPLE YES/NO QUESTIONS MOST OF THE TIME. LUNGS ARE CLEAR, ON 1L/NC. SHE OCCASIONALLY DESATURATES DOWN TO THE 70S WHILE SLEEPING, BUT COMES UP QUICKLY WITHOUT INTERVENTION. SR, LEVOPHED REQUIRED TO KEEP MAP ABOVE 65. NEEDS TO BE FED AT MEALS, BUT SHE ATE AT ALL 3 MEAL TIMES. PUREWICK DRAINING YELLOW URINE. SM LOOSE BM TODAY. CENTRAL LINE PULLED AFTER PICC LINE PLACED. R GROIN ACCESS SITE IS C/D/I, SOFT. MULTIPLE FAMILY MEMBERS VISITED THROUGHOUT THE DAY AND HAVE BEEN UPDATED.
[2025-06-09 23:03] LABS: Vancomycin, Trough 17.9 ug/mL (5.0-10.0)
[2025-06-10] VITALS (89 sets, daily range): BP systolic 73–169; BP diastolic 55–156
[2025-06-10 03:39] LABS: BASOPHILS ABSOLUTE AUTO 0.00 K/mm3 (0.00-0.23); BASOPHILS PERCENT AUTO 0 % (0-2); EOSINOPHILS ABSOLUTE AUTO 0.01 K/mm3 (0.00-0.68); EOSINOPHILS PERCENT AUTO 1 % (0-6); Hematocrit 25.4 % (33.0-51.0); Hemoglobin 8.6 g/dL (11.5-16.0); IMMATURE GRAN ABSOLUTE AUTO 0.02 K/mm3 (0.00-0.10); IMMATURE GRAN PERCENT AUTO 1 % (0-1); LYMPHOCYTES ABSOLUTE AUTO 0.30 K/mm3 (0.84-5.20); LYMPHOCYTES PERCENT AUTO 16 % (21-46); MONOCYTES ABSOLUTE AUTO 0.89 K/mm3 (0.16-1.47); MONOCYTES PERCENT AUTO 48 % (4-13); Mean Corpuscular HGB Conc 33.9 g/dL (31.5-36.5); Mean Corpuscular Volume 103 fL (80-100); NEUTROPHILS ABSOLUTE AUTO 0.65 K/mm3 (1.96-9.15); NEUTROPHILS PERCENT AUTO 35 % (41-73); NRBC ABSOLUTE 0.03 K/mm3 (0.00-0.02); NRBC Auto 1.6 /100 WBC (0.0-0.2); RDW Coefficient Variation 14.9 % (11.7-14.2); RDW Standard Deviation 55.3 fL (35.1-46.3)
[2025-06-10 03:56] LABS: Platelet Count 14 K/mm3 (150-400)
[2025-06-10 04:06] LABS: Anion Gap 2.0 mmol/L (3-11); Blood Urea Nitrogen 11.0 mg/dL (8-24); CO2, Blood 34.0 mmol/L (21-32); Calcium, Blood 8.3 mg/dL (8.5-10.1); Chloride, Blood 106.0 mmol/L (98-108); Creatinine, Blood 0.64 mg/dL (0.40-1.00); Glucose, Blood 97.0 mg/dL (70-99); Potassium, Blood 3.4 mmol/L (3.5-5.5); Sodium, Blood 139.0 mmol/L (136-145)
--- NOTE | 2025-06-10 06:18 | NUR ---
SHIFT SUMMARY PT HAS TOLERATED SHIFT WELL WITH NO SIGNIFICANT EVENTS OR CHANGES IN STATUS. PT REMAINS ON NOREPINEPHRINE DRIP. TITRATIONS WERE ATTEMPTED BUT PTS BLOOD PRESSURE DECREASED TO MAP<65. PT HAD ONE BOWEL MOVEMENT AND ONE UNMEASURED URINE OUTPUT DUE TO PUREWICK NOT FUNCTIONING PROPERLY. PT IS CURRENTLY RESTING IN ROOM. WILL CONTINUE TO MONITOR UNTIL REPORT PASSED TO DAY SHIFT TEAM.
[2025-06-10 11:03] LABS: Platelet Count 12 K/mm3 (150-400)
[2025-06-10] MEDS ORDERED: Ampicillin Sod/Sulbactam Sod 3 GM in NS 100 ML IV SCH (12:00)
[2025-06-10] MEDS ORDERED: Potassium Phosphate Dibasic 25 MM in Dextrose 5% 500 ML IV STA (12:35)
--- NOTE | 2025-06-10 12:38 | NUR ---
REASSESSMENT PT CONTINUES TO SLEEP A LOT. SHE WAKES EASILY AND STAYS AWAKE WHEN THERE ARE VISITORS. SHE MADE MORE ATTEMPTS TO SPEAK WHEN HER FRIEND VISITED, BUT SHE STILL HAD MINIMAL VERBAL COMMUNICATION. LUNGS ARE CLEAR, 1-2L/NC, DR. FELICIANO AWARE OF PT'S APNEA WHEN SLEEPING. SR, STILL REQUIRING LEVOPHED TO KEEP MAP ABOVE 65. PT ATE 100% OF BREAKFAST, SPEECH WORKING WITH PT CURRENTLY. VOIDING USING PUREWICK. DR. FELICIANO GAVE ORDER FOR ANTIFUNGAL POWDER FOR PT'S GROIN FOLDS. PT'S WAS IN THIS MORNING AND WAS UPDATED BY DR. FELICIANO.
--- NOTE | 2025-06-10 13:38 | NUR ---
Spiritual care visit conducted. THe patient is sitting up in bed and alert. Gaston her spouse talks to me by the door of the pt's ICU room. He shares about the frequent visits that they have made lately to the hospital, the horrible toll the therapy treatments for cancer have taken on the patient, and about the amazing family support that they have enjoyed over the last couple of months. He tells me that one of his son in laws is an Antenna Machine Operator at a [employer] in [place]. He tells me that he is hanging on by a thread, ok for now but ask him in a week and it might be another story. I normalize his feelings and fears, reinforced helpful attitudes and practices and provided therapeutic listening and a calming presence. I will continue to remain available.
[2025-06-10 15:33] LABS: Platelet Count 13 K/mm3 (150-400)
[2025-06-10] MEDS ORDERED: FILGRASTIM-AYOW 300 MCG/0.5 ML SYRINGE SC SCH (16:00)
--- NOTE | 2025-06-10 17:02 | NUR ---
SHIFT SUMMARY PT HAS BEEN RESTING IN BED THROUGHOUT THE SHIFT. NO CHANGES IN MENTATION THROUGHOUT THE SHIFT. LUNGS ARE CLEAR, 1-2L/NC. SR, STILL REQUIRING LEVOPHED TO KEEP MAP ABOVE 65. ATE ALL OF BREAKFAST AND LUNCH TODAY. PUREWICK WAS INEFFECTIVE TODAY AND INCONTINENT VOID CLEANED UP, ALSO INCONTINENT OF BM THIS SHIFT. MULTIPLE FAMILY MEMBERS AT THE BEDSIDE AND HAVE BEEN UPDATED.
--- NOTE | 2025-06-10 17:20 | NUR ---
PALLIATIVE CARE VISIT: MET WITH PT AND DAUGHTER IN ROOM. PT/FAMILY KNOWN FROM PRIOR HOSPITALIZATIONS. DAUGHTER WELCOMED VISIT. PT SLEPT ENTIRE TIME OF VISIT. AFTER DISCUSSING PT MEDICAL CONDITION AND CONCERNS OF THE PAST 3 MONTHS, DAUGHTER REQUESTED I VISIT WITH HER DAD TOMORROW. WE WILL MEET AT 1030 TO FURTHER DISCUSS CONCERNS, GOC.
[2025-06-10] MEDS ORDERED: Miconazole Nitrate 2% 85 GM PWD TOP SCH (21:00)
[2025-06-11] VITALS (84 sets, daily range): BP systolic 70–154; BP diastolic 44–109
[2025-06-11 04:35] LABS: Hematocrit 23.6 % (33.0-51.0); Hemoglobin 8.1 g/dL (11.5-16.0); Mean Corpuscular HGB Conc 34.3 g/dL (31.5-36.5); Mean Corpuscular Volume 101 fL (80-100); NRBC ABSOLUTE 0.06 K/mm3 (0.00-0.02); NRBC Auto 1.4 /100 WBC (0.0-0.2); RDW Coefficient Variation 15.5 % (11.7-14.2); RDW Standard Deviation 56.2 fL (35.1-46.3)
[2025-06-11 04:52] LABS: Platelet Count 10 K/mm3 (150-400)
[2025-06-11 05:12] LABS: Alanine Aminotransfer (ALT/SGP 11.0 U/L (12-78); Albumin, Blood 1.8 g/dL (3.4-5.0); Albumin/Globulin Ratio 0.9 (0.8-1.8); Anion Gap 5.0 mmol/L (3-11); Aspartate Aminotrans (AST/SGOT 21.0 U/L (12-37); Bilirubin, Total 0.5 mg/dL (0.1-1.0); Blood Urea Nitrogen 11.0 mg/dL (8-24); CO2, Blood 32.0 mmol/L (21-32); Calcium, Blood 8.1 mg/dL (8.5-10.1); Chloride, Blood 106.0 mmol/L (98-108); Creatinine, Blood 0.63 mg/dL (0.40-1.00); Globulin, Blood 2.1 g/dL (2.2-4.0); Glucose, Blood 125.0 mg/dL (70-99); Potassium, Blood 3.7 mmol/L (3.5-5.5); Sodium, Blood 139.0 mmol/L (136-145); Total Protein, Blood 3.9 g/dL (6.4-8.2)
--- NOTE | 2025-06-11 06:14 | NUR ---
SHIFT SUMMARY: PT SLEPT THE MAJORITY OF THE NIGHT. REMAINS LETHARGIC, AROUSABLE TO VOICE, AND ORIENTED TO SELF. LUNGS ARE CLEAR, USING 2L O2 VIA NC WHILE ASLEEP. SBP REMAINS SOFT. LEVOPHED GTT RESTARTED DUE TO MAPS<65. GTT HAD BEEN OFF MOST OF THE NOC SHIFT. HR SINUS. ABD SOFT, BT HYPOACTIVE X4. PT HAD MULTIPLE LOOSE BMS THIS SHIFT. RECTAL TUBE PLACED, PT TOLERATED WELL. BROWN LIQUID STOOL IN TUBE, DRAINING TO GRAVITY. PT HAD MINIMAL URINE OUTPUT. PUREWICK IN PLACE. BLADDER SCAN SHOWED 25OML IN BLADDER. HOSPITALIST AWARE. PT REMAINS VERY EDEMATOUS T/O. SKIN FRAGILE. CARE CONTINUES. THIS RN TO REPORT TO ONCOMING SHIFT.
[2025-06-11 06:26] LABS: BAND PERCENT MAN 16 % (0-8); BASOPHILS ABSOLUTE MAN 0.00 K/mm3 (0.00-0.23); BASOPHILS PERCENT MAN 0 % (0-2); EOSINOPHILS ABSOLUTE MAN 0.00 K/mm3 (0.00-0.68); EOSINOPHILS PERCENT MAN 0 % (0-6); LYMPHOCYTES ABSOLUTE MAN 0.45 K/mm3 (0.84-5.20); LYMPHOCYTES PERCENT MAN 11 % (21-46); METAMYELOCYTE ABSOLUTE MAN 0.20 K/mm3 (0.00-0.00); METAMYELOCYTE PERCENT MAN 5 % (0-0); MONOCYTES ABSOLUTE MAN 1.96 K/mm3 (0.16-1.47); MONOCYTES PERCENT MAN 47 % (4-13); NEUTROPHILS ABSOLUTE MAN 1.54 K/mm3 (1.96-9.15); SEG NEUTROPHILS PERCENT MAN 21 % (41-73)
[2025-06-11] MEDS ORDERED: HYDROcodone 5-APAP 325 TAB PO PRN (11:00)
[2025-06-11] MEDS ORDERED: Furosemide 10 MG / ML 2ML Vial IV SCH (15:00)
--- NOTE | 2025-06-11 17:13 | NUR ---
Met with pt's and 2 adult daughters at the bedside. The patient did not engage in the conversation. They state they want to honor the patient's wishes, which includes keeping her code status as "Full Code." They also requested Dr. Chandler to consult, which he did today. They are not ready to have any discussions on de-escalation of care, but did want more information on hospice care and what it is. We had that discussion as well. At this point, they will continue with currentl regimen in hopes for pt's physical improvement. Will continue to follow. This PC RN gave them a POLST, request they look it over, and ask that we have further discussions tomorrow.
[2025-06-11] MEDS ORDERED: Albumin (Human) 25gm/100ml 100 ML IV SCH (18:00)
--- NOTE | 2025-06-11 19:05 | NUR ---
SHIFT SUMMARY PATIENT IS RESPONSIVE TO VERBAL STIMULI, RESPONDS TO NAME AND RECOGNIZE FAMILY MEMBERS PRESENT AT BEDSIDE. PATIENT ON LEVOPHED GTT AT START OF SHIFT, MAP >65, ABLE TO TITRATE OFF OF LEVO BY END OF SHIFT, MAP >65. SPO2 >90% ON 2L VIA NC, TELE IN PLACE, PAROX AFIB THIS SHIFT, HR 70'S-100'S. RECTAL TUBE INTACT, PATENT, AND DRAINING TO GRAVITY, BROWN OUTPUT PRESENT. MINIMAL URINE OUTPUT NOTED AT START OF SHIFT, PROVIDER MADE AWARE, VILLALTA CATHETER IN PLACE, PATENT, AND DRAINING TO GRAVITY. 350ML OF MARTHA COLORED URINE PRESENT IMMEDIATELY AFTER VILLALTA INSERTION, 550 ML OF CLEAR YELLOW URINE PRESENT AFTER DIURETIC THERAPY. SIGNIFICANT EDEMA PRESENT IN ALL EXTREMITIES. SKIN BREAKDOWN PRESENT IN RIGHT GROIN, MEPILEX IN PLACE. ONCOLOGY AND PALLIATIVE CONSULTS THIS SHIFT, SEE NOTE FOR MORE INFORMATION. PATIENT IS A LIFT ASSIST, PATIENT UP IN BED, CALL LIGHT IN REACH, FAMILY AT BEDSIDE.
--- NOTE | 2025-06-11 19:55 | NUR ---
ASSUMPTION OF CARE: PT IN BED, RESTING AND SNORING LOUDLY. PT AROUSES TO LOUD VERBAL STIMULI W/LIGHT TOUCH, REMAINS VERY LETHARGIC. PER FAMILY AND DAY SHIFT RN, PT HAD A VERY GOOD DAY. MENTATION WAS CLEARER AND SHE WAS SPEAKING IN MORE THAN 3 WORD PHRASES W/STAFF AND FAMILY. EYES PERRLA. PT AFEBRILE. SBP REMAIN SOFT 90S-100S. HR 60S, SINUS. LEVOPHED GTT CURRENTLY ON STANDBY. MAPS>65. LUNGS CLEAR, PT USING 2L O2 VIA NC WHILE ASLEEP. SATS >93%. ABD MOD DISTENDED, BT HYPERACTIVE X4. RECTAL TUBE IN PLACE, DRAINING TO GRAVITY. VILLALTA IN PLACE, PATENT, DRAINING TO GRAVITY. AND DAUGHTER SADIE AT BEDSIDE. NO CONCERNS OR NEEDS VOICED AT THIS TIME. THIS RN TO CONTINUE TO MONITOR. CARE CONTINUES.
[2025-06-12] VITALS (93 sets, daily range): BP systolic 75–132; BP diastolic 44–115
[2025-06-12 04:11] LABS: Hematocrit 22.7 % (33.0-51.0); Hemoglobin 7.8 g/dL (11.5-16.0); Mean Corpuscular HGB Conc 34.4 g/dL (31.5-36.5); Mean Corpuscular Volume 101 fL (80-100); NRBC ABSOLUTE 0.04 K/mm3 (0.00-0.02); NRBC Auto 0.3 /100 WBC (0.0-0.2); RDW Coefficient Variation 15.9 % (11.7-14.2); RDW Standard Deviation 58.2 fL (35.1-46.3)
[2025-06-12 04:19] LABS: Platelet Count 29 K/mm3 (150-400)
[2025-06-12 05:22] LABS: BAND PERCENT MAN 21 % (0-8); BASOPHILS ABSOLUTE MAN 0.00 K/mm3 (0.00-0.23); BASOPHILS PERCENT MAN 0 % (0-2); EOSINOPHILS ABSOLUTE MAN 0.00 K/mm3 (0.00-0.68); EOSINOPHILS PERCENT MAN 0 % (0-6); LYMPHOCYTES ABSOLUTE MAN 0.75 K/mm3 (0.84-5.20); LYMPHOCYTES PERCENT MAN 6 % (21-46); METAMYELOCYTE ABSOLUTE MAN 0.50 K/mm3 (0.00-0.00); METAMYELOCYTE PERCENT MAN 4 % (0-0); MONOCYTES ABSOLUTE MAN 2.64 K/mm3 (0.16-1.47); MONOCYTES PERCENT MAN 21 % (4-13); MYELOCYTE ABSOLUTE MAN 0.62 K/mm3 (0.00-0.00); MYELOCYTE PERCENT MAN 5 % (0-0); NEUTROPHILS ABSOLUTE MAN 8.05 K/mm3 (1.96-9.15); SEG NEUTROPHILS PERCENT MAN 43 % (41-73)
[2025-06-12 05:32] LABS: Ferritin, Serum 289.0 ng/mL (8-252); Magnesium, Blood 1.5 mg/dL (1.6-2.4); Total Iron Binding Capacity 215.0 ug/dL (250-450)
[2025-06-12 05:34] LABS: Alanine Aminotransfer (ALT/SGP 10.0 U/L (12-78); Albumin, Blood 2.2 g/dL (3.4-5.0); Albumin/Globulin Ratio 1.0 (0.8-1.8); Anion Gap 4.0 mmol/L (3-11); Aspartate Aminotrans (AST/SGOT 14.0 U/L (12-37); Bilirubin, Total 0.6 mg/dL (0.1-1.0); Blood Urea Nitrogen 18.0 mg/dL (8-24); CO2, Blood 34.0 mmol/L (21-32); Calcium, Blood 8.7 mg/dL (8.5-10.1); Chloride, Blood 105.0 mmol/L (98-108); Creatinine, Blood 0.66 mg/dL (0.40-1.00); Globulin, Blood 2.1 g/dL (2.2-4.0); Glucose, Blood 93.0 mg/dL (70-99); Phosphorus, Blood 2.5 mg/dL (2.5-4.9); Potassium, Blood 3.2 mmol/L (3.5-5.5); Sodium, Blood 140.0 mmol/L (136-145); Total Protein, Blood 4.3 g/dL (6.4-8.2)
[2025-06-12] MEDS ORDERED: Magnesium Sulf 2 GM/Water 50ML 50 ML IV ONE (06:00)
--- NOTE | 2025-06-12 06:02 | NUR ---
SHIFT SUMMARY: NO SIGNIFICANT CHANGES OVERNIGHT. PT SLEPT MAJORITY OF SHIFT, AWOKE FOR SHORT PERIODS OF TIME TO TAKE MEDS AND INTERMITTENTLY DRINK WATER. AFEBRILE. PT AWOKE AT ONE POINT AND NOTED TO BE TEARY, APPEARED TO BE IN PAIN-MEDICATED PER EMAR. PT CONTINUES TO HAVE LABILE SBP, REQUIRING LEVOPHED GTT. SEE FLOWSHEET FOR TITRATIONS. HR 60S-70S, SINUS W/INTERMITTENT AFIB. LUNGS CLEAR. CONTINUES USING 2L O2 VIA NC WHILE ASLEEP. SATS>93%. RECTAL TUBE REMAINS IN PLACE, DRAINING TO GRAVITY. VILLALTA IN PLACE, PATENT. CARE CONTINUES. THIS RN TO REPORT TO ONCOMING RN.
--- NOTE | 2025-06-12 08:43 | NUR ---
ASSUMED CARE NOTE: ASSUMED CARE OF PT AT 0700. PT IS ALERT AND ABLE TO FOLLOW COMMANDS. UNABLE TO COMMUNICATE NEEDS D/T APHASIA. PT ON 2L OF OXYGEN VIA NC, SPO2 97% NO RESP DISTRESS NOTED. PT IN SR WITH HR IN THE 80'S, LEVOPHED INFUSING AT 0.5MCG/MIN TO MAINTAIN MAP ABOVE 65. CHG BATH GIVEN, GOWN/LINEN CHANGED. PT UP IN FOWLERS POSITION FOR MEAL, ORAL CARE PROVIDED. C-COLLAR IN PLACE. VILLALAT PATENT, DRAINING TO GRAVITY.
[2025-06-12] MEDS ORDERED: Folic Acid 1 MG TAB PO SCH (09:00)
[2025-06-12] MEDS ORDERED: NS 250 ML IV PRN (11:45)
--- NOTE | 2025-06-12 17:55 | NUR ---
SHIFT SUMMARY: PT IS ALERT AND ABLE TO FOLLOW COMMANDS. UNABLE TO COMMUNICATE ALL NEEDS D/T APHASIA (BASELINE). PT GRIMICING WITH MOVEMENT, NORCO PRN GIVEN PER MAR WITH GOOD EFFECT. PT REMAINS IN SR WITH HR IN THE 70'S-80'S. LEVOPHED ON STAND BY SINCE 1339, MAP'S REMAIN ABOVE 65. PT APPETITE IMPROVING, PT IS A FEEDER, NO S/S OF ASPIRATION NOTED. ORAL CARE GIVEN BEFORE AND AFTER MEALS. RECTAL TUBE IN PLACE DRAINING BROWN LIQUID STOOL TO GRAVITY. VILLALTA PATENT, DRAINING CLEAR YELLOW URINE. PT REPOSITIONED Q2HRS. PLAN OF CARE ONGOING, CALL LIGHT WITHIN REACH. FAMILY PRESENT AT BEDSIDE.
[2025-06-12] MEDS ORDERED: Dextran/Hypromellose/Glycerin 15 DROP/ML BTL BOTHEYES PRN (20:05)
[2025-06-13] VITALS (92 sets, daily range): BP systolic 68–174; BP diastolic 46–140
[2025-06-13] MEDS ORDERED: FentaNYL Citrate 50 MCG/ML 2 ML Injection IV PRN (02:55)
[2025-06-13 03:44] LABS: Hematocrit 22.4 % (33.0-51.0); Hemoglobin 7.4 g/dL (11.5-16.0); Mean Corpuscular HGB Conc 33.0 g/dL (31.5-36.5); Mean Corpuscular Volume 105 fL (80-100); NRBC ABSOLUTE 0.06 K/mm3 (0.00-0.02); NRBC Auto 0.4 /100 WBC (0.0-0.2); RDW Coefficient Variation 17.2 % (11.7-14.2); RDW Standard Deviation 66.1 fL (35.1-46.3)
[2025-06-13 03:59] LABS: Platelet Count 44 K/mm3 (150-400)
[2025-06-13 04:03] LABS: Anion Gap 6.0 mmol/L (3-11); Blood Urea Nitrogen 21.0 mg/dL (8-24); CO2, Blood 34.0 mmol/L (21-32); Calcium, Blood 9.1 mg/dL (8.5-10.1); Chloride, Blood 104.0 mmol/L (98-108); Creatinine, Blood 0.77 mg/dL (0.40-1.00); Glucose, Blood 105.0 mg/dL (70-99); Potassium, Blood 3.2 mmol/L (3.5-5.5); Sodium, Blood 141.0 mmol/L (136-145)
--- NOTE | 2025-06-13 06:35 | NUR ---
SHIFT SUMMARY PT MORE ALERT AND RESPONSIVE, COMMUNICATING WITH FEW WORDS, DIFFICULT COMMUNCATION DUE TO BASELINE APHASIA. DAUGHTER AT BS DURING NIGHT AND HELPED KEEP PT AT EASE. VSS T/O NIGHT WITHOUT LEVOPHED GTT. AFEBRILE. NC 2L TO KEEP SAT.94% WHILE SLEEPING. PLATELETS CONTINUING TO SLOWLY INCREASE, 44 THIS AM. WILL UPDATE DAY RN WITH OUTSTANDING ISSUES AND PROBLEMS TO DATE.
--- NOTE | 2025-06-13 11:13 | NUR ---
Spiritual Care Visit. Pt. is awake in bed when she welcomes my visit. Pt. is pleasant. Spouse is at bedside. Spouse is more actively involved in the visit. Considered matters of shae and belief, as well as other family connections. Listen with empathy and interest. Pt. displayed evidence of being encouraged by the visit. Prayed for the Pt. Pt. verbalized gratitude for the spiritual care visit.
--- NOTE | 2025-06-13 19:16 | NUR ---
END OF SHIFT NOTE: NO ACUTE EVENTS THIS SHIFT. PT ALERT, ORIENTED TO SELF & FAMILY AT TIMES. TEARFUL, EXPRESSING FEAR DUE TO CONFUSION. ABLE TO FOLLOW MOST COMMANDS. R-SIDED DEFICIT NOTED. ABLE TO SPEAK W/ 1 WORD AT A TIME, REPLIES W/ YES/NO MOST OFTEN. HR 70-80'S, SINUS RHYTHM/SINUS ARRHYTHMIA ON MONITOR. LEVO GTT RESTARTED THIS AFTERNOON DUE TO MAP <65 WHILE PT ASLEEP; TITRATED OFF PRIOR TO SHIFT CHANGE. PITTING EDEMA TO BUE/BLE. SPO2 >90% ON 2L VIA NC. AFEBRILE. VILLALTA CATH PATENT & DRAINING LIGHT YELLOW URINE TO GRAVITY. RECTAL TUBE NOTED TO HAVE VERY LITTLE OUTPUT, REMOVED THIS EVENING W/O DIFFICULTY. PT TOLERATING PUREE DIET, MEDS CRUSHED IN APPLESAUCE. Q2HR REPOSITIONING, FEEDING ASSISTANCE PROVIDED. FAMILY AT BEDSIDE FOR MAJORITY OF SHIFT. NO OTHER NEEDS AT THIS TIME, BEDSIDE REPORT GIVEN TO JOSE RITTER.
[2025-06-13] MEDS ORDERED: Protein Supplement 30 ML UD PO SCH (21:00)
--- NOTE | 2025-06-13 23:19 | NUR ---
ASSUMPTION OF CARE/ASSESSMENT: ASSUMED CARE OF PT AT 1900; BEDSIDE SHIFT REPORT RECIEVED FROM NIKITA RITTER. PT REMAINS A&O X 3, PLEASANT AND COOPERATIVE WITH CARE; PT HAS HAD A CVA IN THE PAST WITH R. SIDED DEFICITS AND APHASIA, COMMUNICATION BOARD AT BEDSIDE. PT ON NS @ 2LPM, LUNGS CLEAR/DIM THROUGHOUT. SR ON MONITOR WITH HR 70'S, SBP 90'S, AND MAP 65<. PT DENIES SOB AND CHEST PAIN AT THIS TIME. VILLATLA PATENT AND DRAINING TO GRAVITY, CLEAR/YELLOW URINE. PT INCONTINENT OF STOOL, ATTENDS IN PLACE AND PT HAD A SMALL, SOFT BOWEL MOVEMENT. PT HAS SKIN BREAKDOWN ON BACK OF RIGHT THIGH; WOUND CLEANSED AND MEPILEX REPLACED. SKIN FRAGILE OVERALL WITH SCATTERED BRUSING. PICC TO KLAUDIA THAT IS PATENT AND INFUSING MEDS PER EMAR. PT'S DAUGHTER AND AT BEDSIDE AND UPDATED ON CURRENT TREATMENT PLAN.
[2025-06-14] VITALS (89 sets, daily range): BP systolic 68–154; BP diastolic 41–121
[2025-06-14 03:59] LABS: Hematocrit 21.6 % (33.0-51.0); Hemoglobin 7.1 g/dL (11.5-16.0); Mean Corpuscular HGB Conc 32.9 g/dL (31.5-36.5); Mean Corpuscular Volume 106 fL (80-100); NRBC ABSOLUTE 0.15 K/mm3 (0.00-0.02); NRBC Auto 0.8 /100 WBC (0.0-0.2); Platelet Count 69 K/mm3 (150-400); RDW Coefficient Variation 19.2 % (11.7-14.2); RDW Standard Deviation 70.7 fL (35.1-46.3)
[2025-06-14 04:15] LABS: Albumin, Blood 3.0 g/dL (3.4-5.0); Anion Gap 5 mmol/L (3-11); Blood Urea Nitrogen 26 mg/dL (8-24); CO2, Blood 36 mmol/L (21-32); Calcium, Blood 8.8 mg/dL (8.5-10.1); Chloride, Blood 104 mmol/L (98-108); Creatinine, Blood 0.89 mg/dL (0.40-1.00); Glucose, Blood 87 mg/dL (70-99); Phosphorus, Blood 2.5 mg/dL (2.5-4.9); Potassium, Blood 3.4 mmol/L (3.5-5.5); Sodium, Blood 142 mmol/L (136-145)
--- NOTE | 2025-06-14 06:40 | NUR ---
SHIFT SUMMARY: NO ACUTE CHANGES OVERNIGHT. PT BECAME HYPOTENSIVE WITH MAP OF 60 AFTER FENTANYL ADMINISTRATION, LOW DOSE OF LEVO STARTED @ 2 MCG. ALL OTHER VSS REMAINS STABLE. PT REMAINS ON NC @ 2LPM. ONE BOWEL MOVEMENT THIS SHIFT. C-COLLAR REMOVED AND SKIN CHECK COMPLETED THIS SHIFT; MEPILEX REMAINS IN PLACE. FOELY PATENT AND DRAINING TO GRAVITY; 1.7 L OUTPUT THIS SHIFT. PICC TO KLAUDIA THAT IS PATENT AND INFUSING PER EMAR. PT SLEEPING AT THIS TIME. WILL REPORT OFF TO ONCOMING RN.
[2025-06-14 12:07] LABS: Hematocrit 22.7 % (33.0-51.0); Hemoglobin 7.3 g/dL (11.5-16.0)
--- NOTE | 2025-06-14 19:15 | NUR ---
SHIFT SUMMARY: PT IS ALERT AND ORIENTED TO SELF, ABLE TO FOLLOW COMMANDS, UNABLE TO COMMUNICATE ALL NEEDS DUE TO APHASIA (BASELINE) PT C/O PAIN, NORCO GIVEN PER MAR WITH GOOD EFFECT. PT REMAINS ON 2 L OF OXYGEN VIA NC TO MAINTAIN SPO2 ABOVE 92% WHILE SLEEPING. PT HAS BEEN OFF THE LEVOPHED SINCE 729, SBP ABOVE 100, MAP'S MAINTAINED ABOVE 65. PT TOLERATING PO INTAKE, NO S/S OF ASPIRATION. VILLALTA PATENT, DRAINING TO GRAVITY. 1 MED BROWN SOFT BM THIS SHIFT. PT REPOSITIONED Q2HRS. BED AT LOWEST LEVEL, CALL LIGHT WITHIN REACH. FAMILY AT BEDSIDE, PLAN OF CARE ONGOING.
--- NOTE | 2025-06-14 19:31 | NUR ---
ASSUMPTION OF CARE NOTE: ASSUMED CARE OF PT AT 1900 AND PT IS RELAXING IN BED WITH AT BEDSIDE. PT CURRENTLY HAS POTASSIUM 40MEQ CURRENTLY INFUSING TO PATENT KLAUDIA PICC LINE. PT HAS PATENT VILLALTA DRAINING TO GRAVITY, CLEAR YELLOW URINE. PT IS COMFORTABLE AND IN AND OUT OF SLEEP WITH NC ON AT 2L AND SATS REMAIN >96% SBP IN 150'S AND HR AFIB 62. C COLLAR IN PLACE ON PT. PT IS ALERT TO SELF AND ABLE TO SQEEZE MY HANDS AND ANSWER SOME OF MY QUESTIONS BUT RESPONDS SLOW DUE TO EXPRESSIVE APHASIA. HAS CALL LIGHT IN REACH AND BED LOW AND LOCKED FOR SAFETY.
[2025-06-15] VITALS (46 sets, daily range): BP systolic 90–151; BP diastolic 57–107
[2025-06-15 04:19] LABS: Hematocrit 23.0 % (33.0-51.0); Hemoglobin 7.3 g/dL (11.5-16.0); Mean Corpuscular HGB Conc 31.7 g/dL (31.5-36.5); Mean Corpuscular Volume 109 fL (80-100); NRBC ABSOLUTE 0.08 K/mm3 (0.00-0.02); NRBC Auto 0.6 /100 WBC (0.0-0.2); Platelet Count 66 K/mm3 (150-400); RDW Coefficient Variation 20.4 % (11.7-14.2); RDW Standard Deviation 77.0 fL (35.1-46.3)
[2025-06-15 04:36] LABS: Anion Gap 7.0 mmol/L (3-11); Blood Urea Nitrogen 29.0 mg/dL (8-24); CO2, Blood 36.0 mmol/L (21-32); Calcium, Blood 9.2 mg/dL (8.5-10.1); Chloride, Blood 105.0 mmol/L (98-108); Creatinine, Blood 0.84 mg/dL (0.40-1.00); Glucose, Blood 98.0 mg/dL (70-99); Potassium, Blood 3.6 mmol/L (3.5-5.5); Sodium, Blood 144.0 mmol/L (136-145)
--- NOTE | 2025-06-15 05:09 | NUR ---
SHIFT SUMM: PT WAS ABLE TO GET SOME REST AND SLEEP THIS SHIFT. PT STILL REMAINS CONFUSED ON WHERE SHE IS AND IS ALERT TO SELF BUT WILL FOLLOW COMMANDS. PT MAINTAINED SATS >96% ON 2L NC AND OXY MASK. PT DID NOT REQUIRE LEVOPHED AND WAS ABLE TO MANTAIN MAPS >65. KLAUDIA PICC REMAINS PATENT AND VILLALTA PATENT DRAINING TO GRAVITY YELLOW URINE. PT TOOK MEDS WELL CRUSHED IN PUDDING. PT HAS CALL LIGHT IN REACH AND BED LOW AND LOCKED.
--- NOTE | 2025-06-15 17:49 | NUR ---
PALLIATIVE CARE VISIT 1230: SUPPORTIVE VISIT MADE TODAY. PT WAS AWAKE EATING LUNCH. RN WAS FEEDING HER PUREED DIET. PT TOLERATING WELL. PT RESPONDING TO QUESTIONS WITH ONE WORD RESPONSES. SPOUSE PRESENT. PROVIDED MORAL SUPPORT. DISCUSSED UTI PREVENTION METHODS. PT USES [facility]. PT IS INCONTINENT OF BOWEL RIGHT NOW BUT PT USUALLY TELLS HIM WHEN SHE HAS TO HAVE BM. . RECOMMENDED UTILIZING [facility]PAN. SPOUSE REPORTS THEY ATTEMPT TO GET HER TO [facility]IA [facility] BUT OFTEN TIMES ARE NOT FAST ENOUGH. ALSO RECOMMENDED SPOUSE REACH OUT TO [facility]OM[facility] M[facility] HE HAD QUESTIONS ABOUT USING CRANBERRY PILLS AND D-MANNOS SUPPLEMENT TO PREVENT UTI. PT TO TRANSFER OUT OF ICU TODAY.
--- NOTE | 2025-06-15 18:41 | NUR ---
SHIFT NOTE: PT PLEASANT AND COOPERATIVE WITH CARE. SHE ANSWERS YES/NO QUESTIONS APPROPRIATELY AND FAMILY AT BEDSIDE HELPS WITH CARE AND ANSWERING FOR PT. SHE HAS RIGHT SIDED WEAKNESS SECONDARY TO CVA. SHE IS ON 2L NC TO MAINTAIN SPO2>90%. SHE HAS REMAINED IN SR WITH NO ACUTE EVENTS. BP HAS BEEN SLIGHTLY ELEVATED, MIDODRINE HELD. SHE HAS 4+ PITTING EDEMA ON ALL 4 ESTRIMITIES. LASIX GIVEN ORDERED PER EMAR. HER VILLALTA IS DRAINING TO GRAVITY YELLOW URINE. PT HAS HAD BM THIS SHIFT. COLLAR REMAINS IN PLACE. PT REPOSITIONED BY STAFF. FAMILY UP TO DATE ON PLAN OF CARE. CARE CONTINUES
[2025-06-16 01:25] LABS: Campylobacter Sp Not Detected (NOT DETECT); E. Coli O157 Not Detected (NOT DETECT); Enteroaggregative E. coli-EAEC Not Detected (NOT DETECT); Enteropathogenic E. coli-EPEC Not Detected (NOT DETECT); Enterotoxigenic E. coli-ETEC Not Detected (NOT DETECT); Salmonella Sp Not Detected (NOT DETECT); Shiga Toxin-prod E. coli-STEC Not Detected (NOT DETECT); Shigella/Enteroin E. coli-EIEC Not Detected (NOT DETECT); Vibrio Sp Not Detected (NOT DETECT)
[2025-06-16 03:38] VITALS: BP 144/75
[2025-06-16 03:56] LABS: Hematocrit 22.0 % (33.0-51.0); Hemoglobin 7.1 g/dL (11.5-16.0); Mean Corpuscular HGB Conc 32.3 g/dL (31.5-36.5); Mean Corpuscular Volume 108 fL (80-100); NRBC ABSOLUTE 0.03 K/mm3 (0.00-0.02); NRBC Auto 0.3 /100 WBC (0.0-0.2); Platelet Count 62 K/mm3 (150-400); RDW Coefficient Variation 21.4 % (11.7-14.2); RDW Standard Deviation 79.0 fL (35.1-46.3)
[2025-06-16 04:17] LABS: Albumin, Blood 3.7 g/dL (3.4-5.0); Anion Gap 5 mmol/L (3-11); Blood Urea Nitrogen 35 mg/dL (8-24); CO2, Blood 36 mmol/L (21-32); Calcium, Blood 9.1 mg/dL (8.5-10.1); Chloride, Blood 105 mmol/L (98-108); Creatinine, Blood 0.80 mg/dL (0.40-1.00); Glucose, Blood 103 mg/dL (70-99); Magnesium, Blood 1.9 mg/dL (1.6-2.4); Phosphorus, Blood 3.3 mg/dL (2.5-4.9); Potassium, Blood 3.8 mmol/L (3.5-5.5); Sodium, Blood 142 mmol/L (136-145)
--- NOTE | 2025-06-16 04:28 | NUR ---
SHIFT SUMMARY: PATIENT IS ALERT TO SELF AND FAMILY, IS ONLY ABLE TO ANSWER YES/NO QUESTIONS DUE TO HX OF CVA AND EXPRESSIVE APHASIA WELL RIGHT SIDED WEAKNESS. PER AUTOMOTIVE SERVICE MANAGEMENT TEACHER GERARDO PATIENTS TELE SHOWS SINUS RHYTHM BETWEEN 70'S-80'S BPM. PATIENT IS ON 2L OXYGEN VIA NC WITH >90% SPO2. PAIN IS MANAGED WITH PO NORCO PER NOV - ALL MEDS PO ARE TO BE CRUSHED IN PUDDING. PATIENTS SPOUSE EARLY IN THE SHIFT PRIOR TO LEAVING WAS CONCERNED ABOUT PATIENTS LOOSE FREQUENT STOOLS DURING THE DAY - DR. SOLANO WAS CALLED ASKING FOR A GI PANEL VIA STOOL SAMPLE TO BE ORDERED IN WHICH MD HAD ORDERED, RESULTS OF GI PANEL COMPLETED. VILLALTA DRAINING TO GRAVITY WITH NO KINKS IN TUBING WITH YELLOW URINE OUTPUT. Q2H TURNS TOLERATED. PICC IN [facility] IS CURRENTLY SALINE LOCKED WITH CAPS IN PLACE - DOES DRAW BLOOD. PATIENT IS LAYING IN BED WITH CALL LIGHT IN REACH.
[2025-06-16 08:22] VITALS: BP 120/62
[2025-06-16 11:24] VITALS: BP 107/64
[2025-06-16 15:30] VITALS: BP 131/80
--- NOTE | 2025-06-16 18:30 | NUR ---
SHIFT SUMMARY PATIENT IS ALERT, ORIENTED TO SELF AND FAMILY MEMBERS AT BEDSIDE, PATIENT ABLE TO FOLLOW COMMANDS AND ANSWER QUESTIONS IN SINGLE WORD SENTENCES. VSS, TELE IN PLACE, SINUS RHYTHM TO SINUS CAL 50'S-70'S, SPO2 >90% ON 1L VIA NC. PATIENT DENIES PRESENCE OF CHEST PAIN OR PRESSURE THIS SHIFT. PATIENT DENIES N/V, MULTIPLE INCONTINENT SOFT STOOLS THIS SHIFT, PROVIDER MADE AWARE. VILLALTA CATHETER IN PLACE AT START OF SHIFT, SIGNIFICANT URINE OUTPUT, VILLALTA CATHETER REMOVED BY END OF SHIFT, EXTERNAL WICKING SYSTEM IN PLACE AND DRAINING TO SUCTION, PALE YELLOW URINE NOTED IN COLLECTION CONTAINER. MULTIPLE AREAS OF SKIN BREAKDOWN, SEE SHIFT ASSESSMENT FOR FURHTER INFORMATION. PATIENT IS UP IN BED, BED IN LOWEST POSITION, PATIENT FAMILY MEMBER AT BEDSIDE, CALL LIGHT WITHIN REACH.
[2025-06-16 20:58] VITALS: BP 140/72
[2025-06-16] MEDS ORDERED: Banana Flakes/Tos 1 EA Powder Pack PO SCH (21:00)
[2025-06-16 23:50] VITALS: BP 112/73
[2025-06-17 03:32] VITALS: BP 137/82
[2025-06-17 04:35] LABS: Hematocrit 22.2 % (33.0-51.0); Hemoglobin 7.1 g/dL (11.5-16.0)
--- NOTE | 2025-06-17 05:10 | NUR ---
SHIFT SUMMARY: PATIENT IS A&O TO SELF AND FAMILY, SHE IS ABLE TO FOLLOW COMMANDS AND ANSWERS BEST WITH YES/NO QUESTIONS. PER CUTTING TOOL SHARPENER GERARDO PATIENTS TELE SHOWS SINUS RHYTHM WITH PAC'S @ 60'S-70'S BPM. PATIENT IS ON 2L OXYGEN VIA NC WITH >90% SPO2 WHILE SLEEPING WITH EVEN/EQUAL RESPIRATIONS. PATIENT HAS DENIED PAIN THROUGHOUT SHIFT. PATIENT HAS HAD X1 INCONTINENT LOOSE STOOL THIS SHIFT - DR. SOLANO WAS NOTIFIED ABOUT PATIENTS FREQUENT LOOSE STOOLS AND THIS NURSE REQUESTED FOR BANANA-FLAKES FOR PATIENT TO HELP "BULK" UP PATIENTS STOOL - MD ORDERED BANANA-FLAKES PER NOV. FEMALE PUREWICK IN PLACE AND DRAINING TO SUCTION WITH YELLOW URINE OUTPUT IN COLLECTION CONTAINER. Q2H REPOSITIONING IN BED. PATIENT IS LAYING IN BED WITH CALL LIGHT IN REACH.
[2025-06-17 07:35] VITALS: BP 139/72
[2025-06-17 11:43] VITALS: BP 102/58
[2025-06-17] MEDS ORDERED: BANATROL PLUS1 EAC1 PO (13:00)
[2025-06-17] MEDS ORDERED: FOLI1 PO (13:00)
[2025-06-17] MEDS ORDERED: HYDR1TAB94 PO (13:01)
[2025-06-17] MEDS ORDERED: MICONAZOLE NITR85 GM TOP (13:02)
[2025-06-17] MEDS ORDERED: MIDODRINE HCL10 M1 PO (13:03)
[2025-06-17] MEDS ORDERED: JARDIANCE10 MG PO (13:06)
[2025-06-17] MEDS ORDERED: DIVA125 PO (13:06)
[2025-06-17] MEDS ORDERED: FURO20 PO (13:07)
--- NOTE | 2025-06-17 16:17 | NUR ---
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 VSS, TELE IN PLACE, SINUS 70'S, SPO2 >90% ON RA, REQUIRING 1-2L VIA NC WHILE ASLEEP. PATIENT DENYING PAIN THIS SHIFT. EDEMA NOTED IN BLEs AND RIGHT UPPER EXTREMITY. INCONTINENT OF STOOL AND URINE. EXTERNAL WICKING SYSTEM IN PLACE, DRAINING TO SUCTION, PALE YELLOW URINE NOTED IN CANNISTER. PATIENT HAS CERVICAL FRACTURE, C COLLAR IN PLACE, ANKLE FRACTURE, PRESENT BEFORE ADMISSION. PATIENT IS A LIFT TO TRANSFER. FREQUENT REPOSITIONING AND OFFLOADING TO PREVENT PRESSURE INJURIES. PATIENT AND FAMILY MEMBER PROVIDED WITH DISCHARGE EDUCATION, ALL QUESTIONS ANSWERED, DISCHARGE MATERIALS WITH PATIENT. PATIENT IN NO SIGNS OF DISTRESS. PATIENT LEFT UNIT AT 1610 VIA WHEELCHAIR WITH [employer]PER [employer]SPORT, ALL PERSONAL BELONGINGS WITH PATIENT.
== END 2025-06-17 16:40 | disposition home health service (06) | DRG 871 ==
LOC: ER 12:15 → ICUE 20:20 → PCU 20:20 → ICUE 06-09 00:50 → PCU 06-15 13:35
PROVIDERS: Family Medicine; Internal Medicine; Nurse Practitioner Acute Care; Physician Assistant; Student in an Organized Health Care Education/Training Program; ADMIT Student in an Organized Health Care Education/Training Program
PROC: 0T9B70Z Drainage of Bladder with Drainage Device, Via Natural or Artificial Opening (ICD-10-PCS; 2025-06-07)
PROC: 3E03329 Introduction of Other Anti-infective into Peripheral Vein, Percutaneous Approach (ICD-10-PCS; 2025-06-07)
PROC: 30233J1 Transfusion of Nonautologous Serum Albumin into Peripheral Vein, Percutaneous Approach (ICD-10-PCS; 2025-06-08)
PROC: 02H633Z Insertion of Infusion Device into Right Atrium, Percutaneous Approach (ICD-10-PCS; principal; 2025-06-09)
PROC: 3E033XZ Introduction of Vasopressor into Peripheral Vein, Percutaneous Approach (ICD-10-PCS; 2025-06-09)
DX: A41.51 Sepsis due to Escherichia coli [E. coli] (principal); D61.810 Antineoplastic chemotherapy induced pancytopenia; G92.8 Other toxic encephalopathy; J18.9 Pneumonia, unspecified organism; I50.33 Acute on chronic diastolic (congestive) heart failure; R65.21 Severe sepsis with septic shock; J96.21 Acute and chronic respiratory failure with hypoxia; N39.0 Urinary tract infection, site not specified; C90.00 Multiple myeloma not having achieved remission; C79.51 Secondary malignant neoplasm of bone; Z16.12 Extended spectrum beta lactamase (ESBL) resistance; K52.1 Toxic gastroenteritis and colitis; M84.58XA Pathological fracture in neoplastic disease, other specified site, initial encounter for fracture; I11.0 Hypertensive heart disease with heart failure; R21 Rash and other nonspecific skin eruption; L89.151 Pressure ulcer of sacral region, stage 1; L98.411 Non-pressure chronic ulcer of buttock limited to breakdown of skin; R54 Age-related physical debility; T45.1X5A Adverse effect of antineoplastic and immunosuppressive drugs, initial encounter; D63.0 Anemia in neoplastic disease; E87.6 Hypokalemia; E83.39 Other disorders of phosphorus metabolism; G40.909 Epilepsy, unspecified, not intractable, without status epilepticus; T36.95XA Adverse effect of unspecified systemic antibiotic, initial encounter; I48.0 Paroxysmal atrial fibrillation; I69.320 Aphasia following cerebral infarction; E88.09 Other disorders of plasma-protein metabolism, not elsewhere classified; E83.42 Hypomagnesemia; E53.8 Deficiency of other specified B group vitamins; I05.2 Rheumatic mitral stenosis with insufficiency; I27.20 Pulmonary hypertension, unspecified; Z90.89 Acquired absence of other organs; Z96.642 Presence of left artificial hip joint; Z87.891 Personal history of nicotine dependence; Z79.01 Long term (current) use of anticoagulants; Z79.82 Long term (current) use of aspirin; Z79.899 Other long term (current) drug therapy; Z98.890 Other specified postprocedural states; Z88.8 Allergy status to other drugs, medicaments and biological substances
CPT/HCPCS: 0202U; 36415; 36556; 36569; 51701; 70450; 71045; 80048; 80053; 80069; 80202; 81001; 81003; 82330; 82607; 82728; 82746; 82803; 83540; 83550; 83605; 83735; 83880; 84100; 84145; 84439; 84443; 84481; 85014; 85018; 85025; 85027; 85049; 87040; 87077; 87086; 87186; 87449; 87507; 87637; 92526; 92610; 93005; 93010; 93306; 94762; 96361; 96365; 97110; 97163; 97165; 97530; 99285-25; A6590; A9270; C1751; J0295; J0456; J1938; J2405; J2543; J3010; J3373; J3475; J3480; J7030; J7040; J7050; J7060; J7120; P9047; P9612; Q5125

== ENCOUNTER → 2025-07-03 | Outpatient (CLI) | payer OTHER ==
[~2025-07-03] MED LIST changes: +ACYC400; +BANATROL PLUS1 EAC1 PO; +DIVA125 PO; +FOLI1 PO; +HYDR1TAB94 PO; +JARDIANCE10 MG PO; +LENALIDOMIDE25 MG PO; +MICONAZOLE NITR85 GM TOP; +MIDODRINE HCL10 M1 PO
[2025-07-03 18:40] LABS: Source, Urine Voided
[2025-07-03 18:47] LABS: Bilirubin, Urine Neg (Neg); Color, Urine Yellow (P-Yellow); Glucose Qualitative, Urine 4+ (Neg); Ketones, Urine Neg (Neg); Leukocyte Esterase, Urine 1+ (Neg); Protein, Urine 2+ (Neg); Specific Gravity, Urine 1.010 (1.003-1.022); Urobilinogen, Urine NORM (Normal)
[2025-07-03 19:06] LABS: Red Blood Cells, Urine 0-2 /hpf (0-2); Yeast/Fungi Urine Mod /hpf
== END | disposition home or self-care (01) ==
LOC: LAB 17:33 → LAB SHORT 17:33
PROVIDERS: Hospitalist
DX: R30.0 Dysuria (principal)
CPT/HCPCS: 81001

== ENCOUNTER → 2025-07-05 | Outpatient (CLI) | payer OTHER | END | disposition home or self-care (01) | LOC: LAB SHORT 18:02 → LAB 18:02 | DX: R30.0 Dysuria (principal) | CPT/HCPCS: 87086 ==

== ENCOUNTER → 2025-07-09 | Outpatient (CLI) | payer OTHER ==
[2025-07-09 19:12] LABS: BASOPHILS ABSOLUTE AUTO 0.00 K/mm3 (0.00-0.23); BASOPHILS PERCENT AUTO 0 % (0-2); EOSINOPHILS ABSOLUTE AUTO 0.09 K/mm3 (0.00-0.68); EOSINOPHILS PERCENT AUTO 6 % (0-6); IMMATURE GRAN ABSOLUTE AUTO 0.00 K/mm3 (0.00-0.10); IMMATURE GRAN PERCENT AUTO 0 % (0-1); LYMPHOCYTES ABSOLUTE AUTO 0.95 K/mm3 (0.84-5.20); LYMPHOCYTES PERCENT AUTO 63 % (21-46); MONOCYTES ABSOLUTE AUTO 0.10 K/mm3 (0.16-1.47); MONOCYTES PERCENT AUTO 7 % (4-13); Mean Corpuscular HGB Conc 34.0 g/dL (31.5-36.5); Mean Corpuscular Volume 109 fL (80-100); NEUTROPHILS ABSOLUTE AUTO 0.36 K/mm3 (1.96-9.15); NEUTROPHILS PERCENT AUTO 24 % (41-73); NRBC ABSOLUTE 0.00 K/mm3 (0.00-0.02); NRBC Auto 0.0 /100 WBC (0.0-0.2); RDW Coefficient Variation 20.6 % (11.7-14.2); RDW Standard Deviation 77.4 fL (35.1-46.3)
[2025-07-09 19:31] LABS: Hematocrit 15.9 % (33.0-51.0); Hemoglobin 5.4 g/dL (11.5-16.0)
[2025-07-09 19:32] LABS: Platelet Count 8 K/mm3 (150-400)
== END ==
LOC: LAB SHORT 17:53 → LAB 17:53
PROVIDERS: Hospitalist
DX: D69.6 Thrombocytopenia, unspecified (principal)
CPT/HCPCS: 85025

== ENCOUNTER 2025-07-10 09:09 | Observation (INO) | payer OTHER ==
[~2025-07-10] VITALS: Ht 172.7 cm; Wt 74.1 kg
[2025-07-10] VITALS (16 sets, daily range): BP systolic 109–174; BP diastolic 59–112
[2025-07-10 11:19] LABS: BASOPHILS ABSOLUTE AUTO 0.00 K/mm3 (0.00-0.23); BASOPHILS PERCENT AUTO 0 % (0-2); EOSINOPHILS ABSOLUTE AUTO 0.03 K/mm3 (0.00-0.68); EOSINOPHILS PERCENT AUTO 2 % (0-6); Hemoglobin 6.2 g/dL (11.5-16.0); IMMATURE GRAN ABSOLUTE AUTO 0.00 K/mm3 (0.00-0.10); IMMATURE GRAN PERCENT AUTO 0 % (0-1); LYMPHOCYTES ABSOLUTE AUTO 0.98 K/mm3 (0.84-5.20); LYMPHOCYTES PERCENT AUTO 71 % (21-46); MONOCYTES ABSOLUTE AUTO 0.05 K/mm3 (0.16-1.47); MONOCYTES PERCENT AUTO 4 % (4-13); NEUTROPHILS ABSOLUTE AUTO 0.33 K/mm3 (1.96-9.15); NEUTROPHILS PERCENT AUTO 24 % (41-73); NRBC ABSOLUTE 0.00 K/mm3 (0.00-0.02); NRBC Auto 0.0 /100 WBC (0.0-0.2)
[2025-07-10] MEDS ORDERED: Ondansetron HCl 2 MG / ML 2ML Vial IV PRN (11:35)
[2025-07-10] MEDS ORDERED: Polyethylene Glycol 3350 17 gm PO PRN (11:35)
[2025-07-10] MEDS ORDERED: FLU VACC TS2025(65UP)/MF59C/PF 45 MCG/0.5 ML SYRINGE IM SCH (11:35)
[2025-07-10] MEDS ORDERED: NS 1,000 ML IV SCH (11:35)
[2025-07-10 11:44] LABS: Mean Corpuscular HGB Conc 35.0 g/dL (31.5-36.5); Mean Corpuscular Volume 107 fL (80-100)
[2025-07-10 11:46] LABS: Anion Gap 7.0 mmol/L (3-11); Blood Urea Nitrogen 23.0 mg/dL (8-24); CO2, Blood 31.0 mmol/L (21-32); Calcium, Blood 10.2 mg/dL (8.5-10.1); Chloride, Blood 102.0 mmol/L (98-108); Creatinine, Blood 0.99 mg/dL (0.40-1.00); Glucose, Blood 92.0 mg/dL (70-99); Potassium, Blood 4.0 mmol/L (3.5-5.5); Sodium, Blood 136.0 mmol/L (136-145)
[2025-07-10 11:47] LABS: Hematocrit 17.7 % (33.0-51.0); Platelet Count 7 K/mm3 (150-400)
[2025-07-10] MEDS ORDERED: NS 250 ML IV PRN (12:05)
--- NOTE | 2025-07-10 12:54 | NUR ---
ADMISSION PT WAS A DIRECT ADMIT FROM DR. UQINONEZ AND ARRIVED TO PCU 14 ABOUT 1030 THIS MORNING. PT ARRIVED IN HER WHEELECHAIR. SHE WAS TRANSFER VIA LIFT TO THE BED. PT'S [id number]OPE AND ED WERE AT BEDSIDE AND ABLE TO ASSIST WITH QUESTIONS/HX. THE PT HAS AMS AND WAS ONLY ABLE TO TELL THIS RN HER NAME. SHE WOULD NOT FOLLOW COMMANDS DURING AN ASSESSMENT AND WOULD NOT REPLY TO STAFF. THE PT WILL TRACK STAFF BUT THEN ONLY STARE WHEN ASKED QUESTIONS. SHE HAS A HX OF CVA AND HAS RIGHT SIDED DEFICITS. ALSO, THE PT HAS MULTIPLE MYLENOMA AND HAS LESIONS IN HER CERVIAL SPINE. THE PT IS REQUIRED TO WEAR A SOFT COLLAR AT ALL TIME TO REDUCE RISK OF PARALYSIS PER PT'S ED. THE PT DID HAVE LAST SESSION OF CHEMOTHERAPY 07/09. PT IS SR/ST 90'S-100'S ON TELE. BP STABLE. SHE WEARS 1.5L NC AT BASELINE DURING THE NIGHT AND PRN DURING THE DAY. SHE IS INC OF URINE AND BOWEL AT HOME. THE PT STATED HE HAS A PURWICK AT HOME HE USES AND THE PT USUALLY HAS 600CC ON AVERAGE OF OUTPUT A DAY. PROVIDER AT BEDSIDE WHEN THE PT'S WAS DISCUSSING THIS. A PURWICK WAS SET UP TO SUCTION. THE PT HAD A LARGE SOFT BROWN BOWEL MOVEMENT IN HER BREIF. NO REDNESS, BLACK, OR MAROON COLORS NOTED. ALSO, THE PT IS A FEEDER AT BASELINE AND TOLERATED A M&M DIET FOR LUNCH. THE PT HAS 2 UNITS OF PRBC ORDERED AND 1 UNIT OF PLATLETS. D/T THE PT'S CHEMO MEDICATIONS HER TYPE AND CROSS WAS FLAGGED BECAUSE OF POSTIIVE ANTIBODIES. THE BLOOD BANK IS CURRENTLY TRYING TO TRACK PRBC FOR THIS PT. PLT ARE STILL ALLOWED TO BE GIVEN. Ivone SCHNEIDER AND ONCOLOGY NURSE PRACTITIONER JULIO XIONG. WITH THE PT, SHE HAS HER PERSONAL WHEELE CHAIR AND SLING. SEE NOTES FOR UPDATES
[2025-07-10] MEDS ORDERED: HYDROcodone 5-APAP 325 TAB PO SCH ×2 (15:05→21:00)
--- NOTE | 2025-07-10 17:06 | NUR ---
Ed at the bedside. Blood transfusion in progress. V/S are stable. pt is awake. Signs and symptoms of transfusion reaction were reviewed with pt and . The pt's mentation is difficult to ascertain due to her liminted responses and dysphasia, states due to CVA.
--- NOTE | 2025-07-10 17:53 | NUR ---
BLOOD PRODUCT UPDATES/END OF SHIFT UPDATES THE PT HAD 1 UNIT OF PLT'S INFUSED THIS AFTERNOON. BLOOD BANK CALLED AND WERE ABLE TO FIND COMPATIBLE PRBC FOR THE PT. CURRENTLY 1 UNIT OF PRBC IS INFUSING. THE SECOND UNIT SLIP IS ON THE PT'S CHART. VITAL SIGNS SET UP PER PROTOCOL. THE PT HAS BEEN MORE ALERT THIS EVENING AND EATING MORE ATEQUETLY. SHE IS STILL ORIENTED TO SELF AND PERSON. SHE IS ABLE TO SAY NO AND YES ON SOOME QUESTIONS, BUT DOES NOT TALK IN SENTENCES. THE PT'S FAMILY HAS BEEN AT BEDSIDE AND UPDATED ON CARE. NO ACUTE EVENTS. SEE NOTES FOR ANY UPDATES.
[2025-07-10] MEDS ORDERED: Miconazole Nitrate 2% 85 GM PWD TOP SCH (21:00)
[2025-07-10] MEDS ORDERED: Divalproex Sodium 500 MG TABCR PO SCH (21:00)
[2025-07-10] MEDS ORDERED: Banana Flakes/Tos 1 EA Powder Pack PO SCH (21:00)
[2025-07-11] VITALS (7 sets, daily range): BP systolic 134–153; BP diastolic 59–75
[2025-07-11 02:54] LABS: Hematocrit 25.9 % (33.0-51.0); Hemoglobin 9.2 g/dL (11.5-16.0); Mean Corpuscular HGB Conc 35.5 g/dL (31.5-36.5); NRBC ABSOLUTE 0.00 K/mm3 (0.00-0.02); NRBC Auto 0.0 /100 WBC (0.0-0.2); RDW Coefficient Variation 21.7 % (11.7-14.2); RDW Standard Deviation 73.1 fL (35.1-46.3)
[2025-07-11 03:05] LABS: Mean Corpuscular Volume 93 fL (80-100); Platelet Count 50 K/mm3 (150-400)
--- NOTE | 2025-07-11 06:31 | NUR ---
SHIFT SUMMARY: PT ORIENTED TO SELF ONLY. VSS ON RA WHILE AWAKE. APPLIED 2L NC WHILE PT WAS SLEEPING D/T DESAT INTO 70S. PT REMAINED BEDREST. USES LIFT AND WHEELCHAIR AT BASELINE. PT RECEIVED 2U PRBCS DURING SHIFT. HBG 9.2. WICKING SYSTEM IN PLACE. OLIGURIA NOTED. BLADDER SCAN X1 AND SHOWED 70 ML. Q2 REPOSITIONING. MEDS CRUSHED IN APPLE SAUCE. BED IS LOW AND LOCKED. CALL LIGHT WITHIN REACH. BED ALARM ON. CONTINUE WITH CURRENT PLAN OF CARE.
--- NOTE | 2025-07-11 08:15 | NUR ---
am note this rn assumed care at 0700. vital signs stable. spo2 >90% on 1.5l nc. tele sinus rhythm 80s. patient responds to verbal stimuli and will stay awake, but will fall back asleep once conversation is over. patient is oriented to self and person. patient reports no pain, chest pain/pressure, or shortness of breath. patient has brusing on right ankle and red rash on abd. patient lung sounds clear upper lobes and dim lower lobes. patient is bedrest at baseline and reposition every two hours. see shift assessment for further detials. patient takes medications crushed in applesauce or pudding with sips of water in between. hack in to see patient and plan to come back around when family is in the room.
[2025-07-11 08:30] LABS: Hematocrit 22.8 % (33.0-51.0); Hemoglobin 8.0 g/dL (11.5-16.0); Mean Corpuscular HGB Conc 35.1 g/dL (31.5-36.5); Mean Corpuscular Volume 93 fL (80-100); NRBC ABSOLUTE 0.00 K/mm3 (0.00-0.02); NRBC Auto 0.0 /100 WBC (0.0-0.2); RDW Coefficient Variation 22.2 % (11.7-14.2); RDW Standard Deviation 75.7 fL (35.1-46.3)
[2025-07-11 08:38] LABS: Platelet Count 41 K/mm3 (150-400)
[2025-07-11] MEDS ORDERED: Cholecalciferol 1000 Unit Tablet (=25MCG) PO SCH (09:00)
--- NOTE | 2025-07-11 10:10 | NUR ---
update-md tapia in room md tapia is in the room and discussing plan with patient , and daughter. the plan is for the patient to stay the night and then pending what hgb levels are will discharge home. patient and family agree with this plan. Md Tapia educated patient and family on normal range of hgb and plts and when we need to transfuse. Patient and family verbalized understanding.
--- NOTE | 2025-07-11 16:49 | NUR ---
shift summary patient vital signs remain stable. medical status no tele. patient family at bedside majority of the day. no acute changes this shift
--- NOTE | 2025-07-11 22:29 | NUR ---
SHIFT SUMMARY: PT RESPONDED TO VERBAL STIMULI AND ORIENTED TO SELF ONLY. VSS ON RA. MEDS CRUSHED WITH PUDDING. WICKING SYSTEM IN PLACE DRAINING ORANGE URINE. Q2 REPOSITIONING. PT TRANSFERRED TO MEDICAL FLOOR AND REPORT GIVEN TO MEDICAL FLOOR NURSE. NOTIFIED OF PT TRANSFER.
[2025-07-12 00:07] VITALS: BP 144/85
[2025-07-12 04:05] VITALS: BP 137/79
[2025-07-12 05:11] LABS: Hematocrit 23.0 % (33.0-51.0); Hemoglobin 8.1 g/dL (11.5-16.0); Mean Corpuscular HGB Conc 35.2 g/dL (31.5-36.5); Mean Corpuscular Volume 92 fL (80-100); NRBC ABSOLUTE 0.00 K/mm3 (0.00-0.02); NRBC Auto 0.0 /100 WBC (0.0-0.2); RDW Coefficient Variation 21.0 % (11.7-14.2); RDW Standard Deviation 71.2 fL (35.1-46.3)
[2025-07-12 05:26] LABS: Albumin, Blood 2.7 g/dL (3.4-5.0); Anion Gap 4 mmol/L (3-11); Blood Urea Nitrogen 26 mg/dL (8-24); CO2, Blood 33 mmol/L (21-32); Calcium, Blood 8.8 mg/dL (8.5-10.1); Chloride, Blood 102 mmol/L (98-108); Creatinine, Blood 0.81 mg/dL (0.40-1.00); Glucose, Blood 70 mg/dL (70-99); Magnesium, Blood 2.0 mg/dL (1.6-2.4); Phosphorus, Blood 2.4 mg/dL (2.5-4.9); Potassium, Blood 4.3 mmol/L (3.5-5.5); Sodium, Blood 135 mmol/L (136-145)
[2025-07-12 05:37] LABS: Platelet Count 30 K/mm3 (150-400)
[2025-07-12 08:05] VITALS: BP 149/75
--- NOTE | 2025-07-12 10:58 | NUR ---
PALLIATIVE CARE ATTEMPTED VISIT: CONSULT RECIEVED FOR CANCER, AD/POLST, ADVANCED CARE PLANNING. PRIOR TO VISIT, REVIEWED MEDICAL RECORD. ATTEMPTED TO VISIT WITH PT. SHE IS IN MIDDLE OF GETTING A BED BATH. PT NON VERBAL PAIN SCORE APPEARS TO BE 0/10. NO APPARENT DISTRESS VISUALIZED. NO FAMILY ARE PRESENT. SPOKE TO PRIMARY RN. SHE WILL CALL WHEN FAMILY ARRIVES. PT IS CONFUSED AT THIS TIME AND LIKELY UNABLE TO PARTICIPATE IN MEANINGFUL CONVERSATION. PT AND FAMILY ARE KNOWN FROM PRIOR VISITS.
--- NOTE | 2025-07-12 15:44 | NUR ---
DISCHARGE NOTE PT RESPONDS TO VERBAL STIMULI. PT ADMITED DUE TO PANCYTOPENIA. NO CHEST PAIN NOTED OR SOB. PT GETS SCHEDULED NORCO. PT TAKES PILLS CRUSHED IN APPLESAUCE. PT HAD PERWICK ON TODAY. PT INC OF URINE AND BM. PT HAD BEDBATH TODAY. PT TURNED Q2. PALLIATIVE CARE CAME TO SEE PT TODAY. DR. RODRIGUEZ ORDERED DISCHARGE. DINING HOST COMPLETED DISCHARGE. THIS RN WENT OVER DISCHARGE INSTRUCTIONS AND MEDS. MEDS FAXED TO PREFERRED PHARMACY. BREAK RN D/C POWERGLIDE AND PERIPHERAL IV. PT TOOK PERSONAL BELONGINGS. THIS RN AND HIREN X2 ASSISTED WITH LIFT TO TRANSFER PT TO PERSONAL WHEELCAIR. PT ESCORTED VIA WHEELCHAIR TO PT PERSONAL VEHICLE BY ANTOINE MARADIAGA.
[2025-07-15 06:19] LABS: ALPHA 1 GLOBULIN 0.32 g/dL (0.19-0.46); ALPHA 2 GLOBULIN 0.45 g/dL (0.48-1.05); BETA GLOBULIN 0.69 g/dL (0.48-1.10); GAMMA 0.31 g/dL (0.62-1.51); IMMUNOFIXATION IFE Done; KAPPA QNT FREE LIGHT CHAINS 9.37 mg/L (3.30-19.40); KAPPA/LAMBDA FLC RATIO 0.94 (0.26-1.65); LAMBDA QNT FREE LIGHT CHAINS 9.98 mg/L (5.71-26.30); MONOCLONAL PROTEIN 0.40 g/dL (<=0.00); TOTAL PROTEIN, SERUM 4.6 g/dL (6.3-8.2)
== END 2025-07-12 16:04 | disposition home health service (06) ==
LOC: PCU 09:09 → MEDS 09:10 → PCU 09:11 → MEDS 07-11 22:06
PROVIDERS: Internal Medicine; Internal Medicine Hematology & Oncology; ADMIT Hospitalist
DX: C90.00 Multiple myeloma not having achieved remission (principal); I11.0 Hypertensive heart disease with heart failure; I50.32 Chronic diastolic (congestive) heart failure; D61.818 Other pancytopenia; I48.0 Paroxysmal atrial fibrillation; M84.48XA Pathological fracture, other site, initial encounter for fracture; G40.909 Epilepsy, unspecified, not intractable, without status epilepticus; I69.920 Aphasia following unspecified cerebrovascular disease; Z88.8 Allergy status to other drugs, medicaments and biological substances; Z79.01 Long term (current) use of anticoagulants; Z79.82 Long term (current) use of aspirin; Z79.899 Other long term (current) drug therapy
CPT/HCPCS: 36430; 51702; 80048; 80069; 82784; 83521; 83735; 84155; 84165; 85025; 85027; 86334; 86850; 86900; 86901; 86920; A9270; C1751; G0378; G0379; J7030; J7050; P9016; P9035

== ENCOUNTER 2025-07-18 01:00 | Day surgery (SDC) | payer OTHER ==
[2025-07-18] VITALS (7 sets, daily range): BP systolic 80–124; BP diastolic 54–68
[2025-07-18] MEDS ORDERED: NS 250 ML IV SCH (07:00)
[2025-07-18 14:46] LABS: Hematocrit 22.5 % (33.0-51.0); Hemoglobin 7.5 g/dL (11.5-16.0); Mean Corpuscular HGB Conc 33.3 g/dL (31.5-36.5); Mean Corpuscular Volume 97 fL (80-100); NRBC ABSOLUTE 0.00 K/mm3 (0.00-0.02); NRBC Auto 0.0 /100 WBC (0.0-0.2); RDW Coefficient Variation 19.3 % (11.7-14.2); RDW Standard Deviation 67.5 fL (35.1-46.3)
[2025-07-18 14:49] LABS: Lactate Dehydrogenase (Ld),Bld 255.0 U/L (100-240); Uric Acid, Blood 3.5 mg/dL (2.6-6.0)
[2025-07-18 15:00] LABS: Platelet Count 21 K/mm3 (150-400)
[2025-07-18 15:23] LABS: BAND PERCENT MAN 4 % (0-8); BASOPHILS ABSOLUTE MAN 0.00 K/mm3 (0.00-0.23); BASOPHILS PERCENT MAN 0 % (0-2); EOSINOPHILS ABSOLUTE MAN 0.00 K/mm3 (0.00-0.68); EOSINOPHILS PERCENT MAN 0 % (0-6); LYMPHOCYTES ABSOLUTE MAN 1.07 K/mm3 (0.84-5.20); LYMPHOCYTES PERCENT MAN 66 % (21-46); METAMYELOCYTE ABSOLUTE MAN 0.01 K/mm3 (0.00-0.00); METAMYELOCYTE PERCENT MAN 1 % (0-0); MONOCYTES ABSOLUTE MAN 0.16 K/mm3 (0.16-1.47); MONOCYTES PERCENT MAN 10 % (4-13); NEUTROPHILS ABSOLUTE MAN 0.37 K/mm3 (1.96-9.15); SEG NEUTROPHILS PERCENT MAN 19 % (41-73)
--- NOTE | 2025-07-18 16:03 | NUR ---
NEW ORDERS RECIEVED PRIOR TO DC FOR A UNIT OF PRBCS. AWAITING TYPE AND CROSS AND ANTIBODY TESTING AND WILL ADMINISTER UNIT OF PRBCS
[2025-07-19 11:35] LABS: BETA-2-MICROGLOBULIN,SER/PLAS 4.5 mg/L (<=3.0)
== END 2025-07-18 18:47 | disposition home or self-care (01) ==
LOC: ATC 01:00
PROVIDERS: Nurse Practitioner
DX: C90.00 Multiple myeloma not having achieved remission (principal); C79.51 Secondary malignant neoplasm of bone; I10 Essential (primary) hypertension; R53.0 Neoplastic (malignant) related fatigue; E83.52 Hypercalcemia; Z86.73 Personal history of transient ischemic attack (TIA), and cerebral infarction without residual deficits; Z79.899 Other long term (current) drug therapy
CPT/HCPCS: 36430; 36591; 82232; 83615; 84550; 85025; 86850; 86900; 86901; 86920; J7050; P9016; P9035

== ENCOUNTER 2025-08-04 09:17 | Emergency (ER) | payer OTHER ==
[~2025-08-04] VITALS: Ht 177.8 cm; Wt 102.1 kg
[2025-08-04 10:09] LABS: BASOPHILS ABSOLUTE AUTO 0.01 K/mm3 (0.00-0.23); BASOPHILS PERCENT AUTO 0 % (0-2); EOSINOPHILS ABSOLUTE AUTO 0.00 K/mm3 (0.00-0.68); EOSINOPHILS PERCENT AUTO 0 % (0-6); Hematocrit 26.2 % (33.0-51.0); Hemoglobin 8.6 g/dL (11.5-16.0); IMMATURE GRAN ABSOLUTE AUTO 0.03 K/mm3 (0.00-0.10); IMMATURE GRAN PERCENT AUTO 1 % (0-1); LYMPHOCYTES ABSOLUTE AUTO 1.27 K/mm3 (0.84-5.20); LYMPHOCYTES PERCENT AUTO 34 % (21-46); MONOCYTES ABSOLUTE AUTO 0.57 K/mm3 (0.16-1.47); MONOCYTES PERCENT AUTO 15 % (4-13); Mean Corpuscular HGB Conc 32.8 g/dL (31.5-36.5); Mean Corpuscular Volume 100 fL (80-100); NEUTROPHILS ABSOLUTE AUTO 1.87 K/mm3 (1.96-9.15); NEUTROPHILS PERCENT AUTO 50 % (41-73); NRBC ABSOLUTE 0.02 K/mm3 (0.00-0.02); NRBC Auto 0.5 /100 WBC (0.0-0.2); Platelet Count 224 K/mm3 (150-400); RDW Coefficient Variation 25.9 % (11.7-14.2); RDW Standard Deviation 86.0 fL (35.1-46.3)
[2025-08-04 10:16] LABS: Source, Urine Straight Cath
[2025-08-04 10:19] LABS: Bilirubin, Urine Neg (Neg); Color, Urine Yellow (P-Yellow); Glucose Qualitative, Urine Neg (Neg); Ketones, Urine Neg (Neg); Leukocyte Esterase, Urine Neg (Neg); Protein, Urine Neg (Neg); Specific Gravity, Urine 1.015 (1.003-1.022); Urobilinogen, Urine 2+ (Normal)
[2025-08-04 10:23] LABS: Alanine Aminotransfer (ALT/SGP 10.0 U/L (12-78); Albumin, Blood 2.5 g/dL (3.4-5.0); Albumin/Globulin Ratio 1.1 (0.8-1.8); Anion Gap 7.0 mmol/L (3-11); Aspartate Aminotrans (AST/SGOT 25.0 U/L (12-37); Bilirubin, Total 0.7 mg/dL (0.1-1.0); Blood Urea Nitrogen 13.0 mg/dL (8-24); CO2, Blood 34.0 mmol/L (21-32); Calcium, Blood 8.8 mg/dL (8.5-10.1); Chloride, Blood 99.0 mmol/L (98-108); Creatinine, Blood 0.59 mg/dL (0.40-1.00); Globulin, Blood 2.2 g/dL (2.2-4.0); Glucose, Blood 72.0 mg/dL (70-99); Potassium, Blood 3.4 mmol/L (3.5-5.5); Sodium, Blood 137.0 mmol/L (136-145); Total Protein, Blood 4.7 g/dL (6.4-8.2)
[2025-08-04] MEDS ORDERED: NS 1,000 ML IV SCH (10:25)
[2025-08-04] MEDS ORDERED: FLUCONAZOL PO (10:28)
[2025-08-04] MEDS ORDERED: ZOVIRAX200 MG/5 M SS (10:29)
[2025-08-04] MEDS ORDERED: SULFATRIM PEDI473 M1 PO (10:30)
[2025-08-04 12:05] VITALS: BP 130/72
== END 2025-08-04 12:15 | disposition home or self-care (01) ==
LOC: ER 09:17
PROVIDERS: Physician Assistant
DX: R41.82 Altered mental status, unspecified (principal); T43.025A Adverse effect of tetracyclic antidepressants, initial encounter; T40.2X5A Adverse effect of other opioids, initial encounter; I69.320 Aphasia following cerebral infarction; I48.91 Unspecified atrial fibrillation; I10 Essential (primary) hypertension; Z87.891 Personal history of nicotine dependence; Z88.8 Allergy status to other drugs, medicaments and biological substances; Z79.82 Long term (current) use of aspirin; Z79.84 Long term (current) use of oral hypoglycemic drugs; Z79.01 Long term (current) use of anticoagulants; Z79.899 Other long term (current) drug therapy; Z59.89 Other problems related to housing and economic circumstances
CPT/HCPCS: 71046; 80053; 81003; 85025; 93005; 93010; 96360; 99284-25; J7030